=== PATIENT | female | born 1970 | race Caucasian/White ===

== ENCOUNTER → 2017-12-17 08:49 | Outpatient (CLI) | payer OTHER, SELFPAY ==
[2017-12-17 10:38] LABS: Cholesterol 178 mg/dL (200); High Density Lipoprotein 32 mg/dL; Triglycerides 371 mg/dL; Very Low Density Lipoprotein 74 mg/dL (5-40)
== END ==
PROVIDERS: Family Provider Family Medicine; PCP Family Medicine; Visit Provider Family Medicine
DX: E78.5 Hyperlipidemia, unspecified (principal)
CPT/HCPCS: 36415; 80061

== ENCOUNTER → 2018-01-11 10:29 | Outpatient (CLI) | payer OTHER, SELFPAY | PROVIDERS: Family Provider Family Medicine; PCP Family Medicine; Visit Provider Family Medicine | DX: N39.0 Urinary tract infection, site not specified (principal) | CPT/HCPCS: 87086; 87088; 87186 ==

== ENCOUNTER 2018-09-07 16:14 | Emergency (ER) | payer OTHER, SELFPAY ==
[2018-09-07 16:15] VITALS: BP 157/120; PULSE 64; RESP 16; TEMP 36.2; O2SAT 96; BMI 32.5
--- NOTE | 2018-09-07 16:51 | CT_ITS ---
STUDY: CT ABDOMEN AND PELVIS WITHOUT CONTRAST REASON FOR EXAM: Female, 48 years old. Left flank pain. RADIATION DOSAGE (If Supplied By Facility): CTDIvol = ( 15.53 ) mGy, DLP = ( 748.61 ) mGycm TECHNIQUE: Transaxial images were obtained from the dome of the diaphragm to the symphysis pubis without oral contrast, and without intravenous contrast. Sagittal and coronal images were reconstructed. Individualized dose optimization techniques were used for this CT. COMPARISON: None. FINDINGS: The visualized lung bases are unremarkable. The visualized portions of the heart are within normal limits. There is diffuse fatty infiltration of liver without focal mass. Normal gallbladder and extrahepatic biliary system. Normal spleen. Normal pancreas. Normal bilateral adrenal glands. Normal right kidney. Normal right ureter. The left kidney appears mildly enlarged. There is mild stranding of perinephric fat. There is no evidence of renal calculi. There is hydronephrosis and ureterectasis with mild stranding to suggest above the UPJ where there is a 4 mm obstructing stone (image 140, series 2). Normal visualized stomach. Normal small intestine. Normal colon. There are surgical clips in the region of the appendix consistent with a prior appendectomy. Normal abdominal aorta. Normal inferior vena cava. Normal retroperitoneum. Normal urinary bladder. Normal vaginal cuff. There are phleboliths in the pelvis without lymphadenopathy. No free air or free fluid is seen within the peritoneal cavity. Normal abdominal wall. Mild degenerative changes of the lumbar spine. CT/Abdomen/Pelvis without Cont IMPRESSION: 1. Distal left ureteral calculus with mild obstructive uropathy. 2. Fatty infiltration of liver without mass. 3. Status post hysterectomy and appendectomy. 4. Minimal degenerative changes of the lumbar spine. Carlos A Bernal M.D., was advised findings via direct telephone communication at 1831 hours EST on September 07, 2018. Electronically Signed: Jose Marx DO at 18:31 EDT Tel [phone], Service support ,
[2018-09-07] MEDS: 0.9% Normal Saline 1,000 ML 1000 ML IV (17:05)
[2018-09-07] MEDS: Ondansetron 4 MG/2 ML Vial IV (17:06)
[2018-09-07] MEDS: Morphine 4 MG/ML Syringe IV (17:06)
[2018-09-07] MEDS: Ketorolac 30 MG/ML Syringe IV (17:06)
[2018-09-07 17:22] LABS: Anion Gap 8 (5-15); BUN 17 mg/dL (7-18); BUN/Creat Ratio 15.3 RATIO (10-20); Calcium,Total 8.8 mg/dL (8.5-10.1); Chloride 108 mmol/L (98-107); Creatinine, Serum 1.11 mg/dL (0.55-1.02); EST Glomerular Filtration Rate 56 mL/min (>60); Est Glom Filt Rate - Afr Amer 67 mL/min (>60); Estimated Creatinine Clearance 46.77 ml/min; Glucose 119 mg/dL (74-106); Potassium 4.2 mmol/L (3.5-5.1); Sodium Level 142 mmol/L (136-145)
[2018-09-07 17:37] LABS: Absolute Lymphocyte Count 1.71 X10^3/ul (0.83-4.51); Basophil# 0.02 X10^3/uL; Basophil% 0.2 % (0-1); Eosinophil# 0.12 X10^3/uL; Eosinophils% 1.2 % (0-5); Hematocrit 41.9 % (37-47); Hemoglobin 13.5 g/dl (12.0-15.0); Lymphocyte # 1.71 X10^3/ul (4.0); Lymphocyte % 16.6 % (19-41); Mean Corp Hgb Conc 32.2 g/gl (32-36); Mean Corpuscular Hgb 29.7 pg (27.0-32.0); Mean Corpuscular Volume 92.1 fL (81-99); Mean Platelet Vol. 9.8 fl (6.2-12.0); Monocyte# 0.44 X10^3/uL; Monocyte% 4.3 % (0-10); Neutrophil # 7.98 X10^3/uL (2.7-7.7); Neutrophil % 77.6 % (47-70); Platelet Count 273 K/mm3 (150-450); RBC Distribution Width CV 12.9 % (11.6-14.6); RBC Distribution Width SD 42.9 fl (35.1-43.9); Red Blood Count 4.55 M/mm3 (4.2-5.4); White Blood Count 10.3 K/mm3 (4.4-11.0)
[2018-09-07 17:38] LABS: POSITIVE COUNT NO; POSITIVE DIFFERENTIAL NO; POSITIVE MORPHOLOGY NO
[2018-09-07 17:50] LABS: Pregnancy, Serum, hCG Quali. NEGATIVE Negative (0-9 Nonpreg)
[2018-09-07 18:24] LABS: Bacteria 0 SEEN /hpf (None Seen); Mucous, Urine 0 SEEN /hpf (<or=2+); White Blood Cells 0 SEEN /hpf (0-5)
[2018-09-07 18:40] LABS: Color, Urine Straw (Yellow); Glucose, Dipstick Normal (Normal); Ketone-Dipstick Negative (Negative); Leukocyte Esterase-Dipstick Negative /ul (Negative); Nitrite-Dipstick Negative (Negative); Occult Blood-Urine 250 /ul (Negative); Protein-Dipstick Negative (Negative); Urine Bilirubin Dipstick Negative (Negative); Urine Clarity Clear (Clear); Urine Urobilinogen Normal (Normal)
[2018-09-07 18:57] LABS: Red Blood Cells-Urine 50-100 SEEN /hpf (0-5); Squamous Epithelial Cells - UA 0-5 SEEN /hpf (5-10)
[2018-09-07] MEDS: HYDROcodone Bitartrate/Apap 5/325 Tablet PO (19:11)
[2018-09-07 19:13] VITALS: BP 150/86; PULSE 65; RESP 16; O2SAT 94
--- NOTE | 2018-09-07 20:14 | ED.DCSUM_ITS ---
- ER Visit Summary Date of Service: 09/07/18 Chief Complaint: Flank pain History of Present Illness: The patient is a 48 F with flank pain since around noon today. The pain is in her left flank and radiates to her lower abdomen. It is severe. Associated with an episode of diarrhea. No history of this in the past. Physical Examination: Afebrile. Hypertensive. Otherwise vitals unremarkable. Patient appears uncomfortable. Heart regular. Lungs clear. Left flank tender to palpation. Skin appears normal. Test Results: CBC normal. Chloride 108, glucose 119, creatinine 1.11. Urinalysis shows blood but no sign of infection. test negative. CT shows a left distal ureter stone, fatty liver, postop changes and chronic changes. Emergency Department Course and Treatment: Patient had Toradol, morphine, and Zofran. She also had fluids. She required subsequent treatment with [place]. Her pain was under control and she would like to go home. I advised her that this stone will likely pass on its own, but she should follow-up with urology. Call in the morning. She was given a prescription for Percocet as well as Flomax. Return for any new or worsening issues. Treatment Plan: As above Disposition: Discharged Impression: 1. Ureteral colic This note was generated with [employer] dictation software. It may contain incorrect words, spelling, and punctuation that were not noted in review of the chart prior to signing ED Disposition - Plan for ED Patient: Chief Complaint: Flank Pain Referrals: Joselito Ashraf MD [Primary Care Provider] -
--- NOTE | 2018-09-07 20:14 | ED.DEP ---
ED Disposition - Plan for ED Patient: Chief Complaint: Flank Pain Instructions: ED Stone Renal W Colic Prescriptions: Oxycodone HCl/Acetaminophen [Percocet 5/325] 1 tab PO Q6H PRN PRN 3 Days #12 tab PRN Reason: Pain Ondansetron [Zofran Odt] 4 mg PO Q8H PRN PRN #10 tab PRN Reason: Nausea Tamsulosin HCl [Flomax] 0.4 mg PO DAILY #7 cap Referrals: Caleb Shepard MD [STAFF PHYSICIAN] -
[2018-09-07 20:23] VITALS: BP 134/88; PULSE 63; RESP 16; O2SAT 94
== END 2018-09-07 20:27 | disposition home or self-care (01) ==
LOC: ED 17:21
PROVIDERS: Emergency Provider Emergency Medicine; Family Provider Family Medicine; PCP Family Medicine
DX: N20.1 Calculus of ureter (principal); K76.0 Fatty (change of) liver, not elsewhere classified; I10 Essential (primary) hypertension; F41.9 Anxiety disorder, unspecified; Z79.899 Other long term (current) drug therapy
CPT/HCPCS: 74176; 80048; 81001; 84703; 85025; 96361; 96374; 96375; 99283; J7030; A4216; J2405

== ENCOUNTER → 2019-02-25 13:27 | Outpatient (CLI) | payer BC, SELFPAY ==
[2019-01-31 11:00] VITALS: BMI 32.7
--- NOTE | 2019-02-25 13:30 | BI_ITS ---
MAMMOGRAPHY - BILATERAL SCREENING REASON FOR EXAM: Female, 48 years old. Routine annual screening examination. PERTINENT HISTORY: Aunt with breast cancer. TECHNIQUE: Digital bilateral breast trevor (3D mammographic acquisition) in the CC and MLO projections. 2-D mediolateral oblique (MLO) and craniocaudad (CC) views of both breasts were obtained. CAD: Full Field Digital Mammography with Computer Added Detection was performed. COMPARISON: Comparison is made with prior study dated November 04, 2017 and October 22, 2016. FINDINGS: Breast Composition: There are scattered areas of fibroglandular density. There are no dominant masses or suspicious calcifications. Stable bilateral axillary lymph nodes. No other significant abnormalities are identified. There has been no significant change since the prior study. BI/SCREEN MAMM (CAD) W/TREVOR BILAT IMPRESSION: Stable bilateral screening mammogram. Yearly follow-up mammogram recommended. (A) ASSESSMENT CATEGORY: BIRADS Category 2: Benign. A letter regarding these results will be sent to the patient by the facility within 30 days. Approximately 10% of breast cancers are not detected by mammography. A normal mammogram should not delay biopsy of a clinically suspicious abnormality. [id number] Electronically Signed: Corbin Moreno, at 15:02 EDT , Service support ,
== END ==
PROVIDERS: Family Provider Family Medicine; PCP Family Medicine; Referring Provider Obstetrics & Gynecology; Visit Provider Obstetrics & Gynecology
DX: Z12.31 Encounter for screening mammogram for malignant neoplasm of breast (principal)
CPT/HCPCS: 77063; 77067

== ENCOUNTER → 2020-03-22 08:02 | Outpatient (CLI) | payer BC, SELFPAY ==
[2019-01-31 11:00] VITALS: BMI 32.7
[2020-03-22 10:15] LABS: ALB/GLOB Ratio 1.1 RATIO (0.9-2.4); AST(SGOT) 28 U/L (15-37); Alanine Aminotransfer ALT/SGPT 40 U/L (13-56); Albumin, Serum 3.9 g/dL (3.2-5.0); Alkaline Phosphatase 63 U/L (45-117); Anion Gap 9 (5-15); BUN 14 mg/dL (7-18); BUN/Creat Ratio 16.1 RATIO (10-20); Chloride 104 mmol/L (98-107); Cholesterol 190 mg/dL (200); Creatinine, Serum 0.87 mg/dL (0.55-1.02); EST Glomerular Filtration Rate 73 mL/min (>60); Est Glom Filt Rate - Afr Amer 89 mL/min (>60); Globulin 3.5 g/dL (2.2-4.2); Glucose 130 mg/dL (74-106); High Density Lipoprotein 36 mg/dL; Potassium 3.9 mmol/L (3.5-5.1); Protein, Total 7.4 g/dL (6.4-8.2); Sodium Level 139 mmol/L (136-145); Thyroid Stim Hormone (TSH) 3.17 uIU/mL (0.358-3.74); Triglycerides 381 mg/dL; Very Low Density Lipoprotein 76 mg/dL (5-40)
== END ==
PROVIDERS: PCP Family Medicine; Referring Provider Family Medicine; Visit Provider Family Medicine
DX: I10 Essential (primary) hypertension (principal); E03.9 Hypothyroidism, unspecified
CPT/HCPCS: 36415; 80053; 80061; 84443

== ENCOUNTER → 2020-04-04 14:36 | Outpatient (CLI) | payer BC, SELFPAY ==
[2019-01-31 11:00] VITALS: BMI 32.7
--- NOTE | 2020-04-04 15:00 | ECHOCS_ITS ---
Reason For Study: MURMUR Procedure This was a 2D Doppler, Color Flow transthoracic echocardiogram. The study was technically difficult. Contrast injection was performed. Exam performed in department. Left Ventricle Normal size and thickness. The estimated ejection fraction is 65 %. Normal diastology for age. No regional wall motion abnormalities noted. Right Ventricle Normal size and thickness. Normal systolic function. Atria Normal left atrium. Normal right atrium. Normal atrial septum. Mitral Valve The mitral valve is structurally normal. No prolapse or stenosis seen. Tricuspid Valve Normal tricuspid valve. Trivial tricuspid valve insufficiency. Right ventricular systolic pressure estimated to be 29 mmHg. Aortic Valve Normal aortic valve. Trisinus/trileaflet aortic valve. Pulmonic Valve Normal pulmonic valve. Great Vessels Normal aortic root. Normal arch. Normal inferior vena cava. Pericardium/Pleural No pericardial effusion. Medication 22 gauge I.V. with prn adaptor inserted into right arm. Definity3.5ml given slow IV push to enhance endocardial definition. MMode/2D Measurements & Calculations LVIDd: 4.1 cm IVSd: 0.83 cm Ao root diam: 3.1 cm LVIDs: 2.7 cm LVPWd: 0.97 cm RVDd: 3.2 cm FS: 36.0 % LAV(MOD-sp4): 20.7 ml LA A4 area: 11.4 cm2 LA dimension(2D): 4.4 cm RA A4 area: 12.1 cm2 Time Measurements MV dec time: 0.27 sec Doppler Measurements & Calculations MV E max rick: 88.0 cm/sec Lat Peak E' Rick: 7.7 cm/sec Med Peak E' Rick: 7.6 cm/sec MV A max rick: 97.5 cm/sec E/E' lat: 11.5 E/E' med: 11.7 MV E/A: 0.90 Ao V2 max: 195.3 cm/sec LV V1 max: 129.4 cm/sec PA V2 max: 132.5 cm/sec Ao max P.3 mmHg LV V1 max P.7 mmHg Ao V2 mean: 126.7 cm/sec LV V1 mean P.8 mmHg Ao mean P.3 mmHg LV V1 mean: 92.3 cm/sec Ao V2 VTI: 39.0 cm LV V1 VTI: 28.2 cm TR max rick: 247.1 cm/sec TR max P.4 mmHg Interpretation Summary The estimated ejection fraction is 65 %. Normal diastology for age. Trivial tricuspid valve insufficiency. Right ventricular systolic pressure estimated to be 29 mmHg. The study was technically difficult. Contrast injection was performed. Ordering Physician: Joselito Reyes Referring Physician: Joselito Reyes Performed By: Tata Donald RDCS, RVT
== END ==
PROVIDERS: PCP Family Medicine; Referring Provider Family Medicine; Visit Provider Family Medicine
DX: R01.1 Cardiac murmur, unspecified (principal)
CPT/HCPCS: 93306; Q9957; A4216; C8929

== ENCOUNTER 2020-10-16 06:49 | Day surgery (SDC) | payer BC, SELFPAY ==
[2020-09-17 08:42] VITALS: BMI 33.5
[2020-10-16 07:27] VITALS: BP 116/72; PULSE 52; RESP 18; TEMP 36.2; O2SAT 100; BMI 32.7
[2020-10-16] MEDS: Lactated Ringers 1,000 ML 100 ML IV (07:37)
--- NOTE | 2020-10-16 08:20 | H&P.OPEN ---
History of Present Illness Date of Admission: 10/16/20 The patient is a 50 year old F who presents for screening colonoscopy. The patient has never had a colonoscopy in the past. She denies any abdominal pain or blood in her stool. She has no family history of colon cancer. Past Medical/Surgical History - Planned Operation Planned Operative Procedure/s: cscope Date of Operative Procedure: 10/16/20 Permit Signed: No S.O.S: No Is This Patient Having a Total Joint: No - Previous Hospitalizations/Surgeries HX Hospitalizations: No HX of Surgeries: csection x2. appendectomy. laparoscopy. hysterectomy Any Problems With Anesthesia: No You/Your Family Experience Fever (Hyperthermia) With Anes: No Cholinesterase deficiency: No - Cardiovascular Hx Chest Pain within Last 2 months: No Hx of Irregular Heartbeat and/or Afib: No - heart murmur Hx Heart Attack: No Hx Congestive Heart Failure: No Hx Rheumatic Fever: No Hx Hypertension: Yes - controlled with med Hx Internal Defibrillator: No Hx Pacemaker: No Hx Cardiac Catheterization: No Hx Cardiac Surgery/Stents/Etc.: No Hx Stress Test: No - echo 2020 HX Edema: No Hx Pain in Legs when Walking/Leg Cramps: No - Respiratory Chronic Cough: No HX of Shortness of Breath: No Hoarseness: No Hx Chronic Obstructive Pulmonary Disease (COPD): No Hx Asthma: No Hx Emphysema: No Hx Sleep Apnea: No Hx Oxygen Use at Home: No Hx Respiratory Tract Infection/Cold (presently): No Do You Snore Loudly (louder than talking or can be heard): Yes Do You Often Feel Tired/ Fatigued/ Sleepy Dring Daytime?: No Has Anyone Observed You Stop Breathing During Sleep?: No Result (for STOP score): Positive Hx Smoking: No Smoking Status: Never smoker - Gastrointestinal Hx Gastroesophageal Reflux: No Hx Gastrointestinal Disorders: No Hx Gastrointestinal Bleed: No Hx Ulcer: No Hx Hiatal Hernia: No Difficulty Chewing/Swallowing: No Recent Onset of Swallowing Problems: No Special diet followed at home: No Hx Unplanned Weight Loss of 20#: No HX Unplanned Weight Gain of 20#: No - Neurological Hx Seizures: No HX Syncope/Blackout Spells/Unconsciousness: No Hx CVA/Stroke: No Hx Transient Ischemic Attacks (TIA): No Hx Multiple Sclerosis: No Hx Parkinson's Disease: No Hx Head/Neck Injury: No Hx Headaches: Yes Hx Back Injury/Pain: No Recent Onset of Speech Difficulty: No Restless Legs: Yes Does patient have nerve stimulator: No Patient instructed to have device shut off: No Rep notified?: No - Blood Disorder Hx Leukemia: No Bleeding Tendencies: No Hx Deep Vein Thrombosis: No Hx High Cholesterol: No Blood Transmitted Disease: No Hx Hepatitis: No Hx Cirrhosis: No Hx Anemia: No Hx Blood Disorders: No - Reproduction : No Is Patient Lactating: No Hx Hysterectomy: Yes Hx Tubal Ligation: No Are You Post Menopause: No - Genitourinary Hx Renal Disease: No - Musculoskeletal Hx Arthritis: No Hx Rheumatoid Arthritis: No Hx Gout: No Recent Onset of an Orthopedic Problem: No - Endocrine Hx Diabetes: No Thyroid Disease: No Hx Steroid Therapy: No - Psycho/Social Hx Substance Use: No Hx Alcohol Use: No Hx Anxiety: Yes - on med Hx Depression: No Mental Illness: No Hx Dementia: No - Miscellaneous Hx Cancer: No Recent Exposure to Contagious Disease: No Active MRSA: No Hx of C-Diff: No Any Loose Teeth: No Allergies No Known Allergies Allergy (Verified 10/16/20 07:25) - Discharge Is Pt Admitted From a Long-Term, or a Senior Living: No After D/C, Where Do you Plan to Go: Return Home - Physical Exam Vitals/I&O's: Vital Signs Temp Pulse Resp BP Pulse Ox 97.2 F L 52 L 18 116/72 100 10/16/20 07:27 10/16/20 07:27 10/16/20 07:27 10/16/20 07:27 10/16/20 07:27 Oxygen Delivery Method Room Air Weight: 173 lb 3.2 oz Body Mass Index (BMI) 32.7 General: Alert, Oriented x3 Neck: Supple Lungs: Normal air movement Cardiovascular: Regular rate, Regular Rhythm Abdomen: Soft, Non Tender, Non-Distended Current Medications Lactated Ringer's () 1,000 mls @ 100 mls/hr IV .Q10H MARYBEL Last Admin: 10/16/20 07:37 Dose: 100 mls/hr Documented by: Assessment/Plan All Active Problems (Last Reviewed 09/17/20 @ 08:45 by Meseret Ramirez) Climacteric (Acute) 50-year-old female here for screening colonoscopy I explained endoscopy in detail to the patient. I explained the risks including but not limited to stroke or heart attack with anesthesia, perforation of the GI tract, bleeding, infection. I explained that any of these could necessitate further emergency surgery. The patient understands and all questions were answered sufficiently. The patient wishes to proceed with procedure. We discussed the current risks associated with COVID-19. While it is understood that there is a community spread of COVID-19, the risk of balb[place] COVID-19 while at [facility] ([facility]) is very low; however, the risk cannot be completely mitigated because of the community spread of the disease. We discussed in detail the risk of exposure to and/or potential harm posed by the COVID-19 virus with having a surgery/procedure at this time versus the risk of delaying the surgery/procedure. It is not possible to know either the risk of delaying the surgery or procedure or chance of getting an infection with perfect accuracy, but a joint decision was made to proceed at this time with the scheduled surgery/procedure as indicated on the consent form. Patient was notified that we will need to comply with any screening or testing [facility] wishes to perform or that surgery may be delayed for any positive results. Tej Denney MD Pager: [facility] [address] [place] [address] [address] [place] [address] Office: Surgery Risks - Colonoscopy Risks Include but are not Limited To: Risks include but are not limited to: Bleeding, perforation requiring further surgery, inability to complete colonoscopy requiring barium enema.
--- NOTE | 2020-10-16 08:52 | OP.COLON_ITS ---
Patient Name: Annia Pacheco Procedure Date: 10/16/2020 8:32 AM Date of : 1970 Age: 50 Procedure: Colonoscopy Indications: Screening for colorectal malignant neoplasm Providers: Tej Denney MD Referring MD: Tej Denney MD Medicines: Monitored Anesthesia Care Patient Profile: This is a 50 year old female. Refer to note in patient chart for documentation of history and physical. Last Colonoscopy: none. The patient's first colonoscopy is today. Complications: No immediate complications. Procedure: Pre-Anesthesia Assessment: - Prior to the procedure, a History and Physical was performed, and patient medications and allergies were reviewed. The patient's tolerance of previous anesthesia was also reviewed. The risks and benefits of the procedure and the sedation options and risks were discussed with the patient. All questions were answered, and informed consent was obtained. Prior Anticoagulants: The patient has taken no previous anticoagulant or antiplatelet agents. After reviewing the risks and benefits, the patient was deemed in satisfactory condition to undergo the procedure. After I obtained informed consent, the scope was passed under direct vision. Throughout the procedure, the patient's blood pressure, pulse, and oxygen saturations were monitored continuously. The Colonoscope was introduced through the anus and advanced to the cecum, identified by appendiceal orifice and ileocecal valve. The colonoscopy was performed without difficulty. The patient tolerated the procedure well. The quality of the bowel preparation was good. Scope In: 8:39:51 AM Scope Withdrawal Time 0 hours 6 minutes 5 seconds Scope Out: 8:49:19 AM Total Procedure Duration Time 0 hours 9 minutes 28 seconds Findings: The entire examined colon appeared normal on direct and retroflexion views. Impression: - The entire examined colon is normal on direct and retroflexion views. - No specimens collected. Recommendation: - Discharge patient to home. - Resume previous diet. - Continue present medications. - Repeat colonoscopy in 10 years for screening purposes. Procedure Code(s): --- Professional --- 66982, Colonoscopy, flexible; diagnostic, including collection of specimen(s) by brushing or washing, when performed (separate procedure) Diagnosis Code(s): --- Professional --- Z12.11, Encounter for screening for malignant neoplasm of colon CPT copyright 2017 [employer]. All rights reserved. The codes documented in this report are preliminary and upon revit drafter review may be revised to meet current compliance requirements. Tej Denney MD 10/16/2020 8:51:54 AM This report has been signed electronically. Number of Addenda: 0 Note Initiated On: 10/16/2020 8:32 AM
--- NOTE | 2020-10-16 08:52 | OP.CCLET_ITS ---
10/16/2020 Joselito Reyes Md Re : Colonoscopy procedure for Annia Pacheco Dear Amy This procedure was performed on Friday, October 16, 2020. My impressions and recommendations are as follows: Impressions : - The entire examined colon is normal on direct and retroflexion views. - No specimens collected. Recommendations : - Discharge patient to home. - Resume previous diet. - Continue present medications. - Repeat colonoscopy in 10 years for screening purposes. My findings are described in the full procedure note, which is enclosed. If I can be of further assistance, please feel free to contact me at Doctor phone number(s): , Work: . Sincerely, Tej Denney MD 10/16/2020 8:51:54 AM This report has been signed electronically.
[2020-10-16 08:56] VITALS: BP 106/69; BP 116/72; PULSE 61; RESP 16; TEMP 36.1; O2SAT 96
[2020-10-16 09:05] VITALS: BP 102/68; BP 110/68; BP 116/72; PULSE 57; PULSE 61; RESP 16; O2SAT 97; O2SAT 99
[2020-10-16 09:10] VITALS: BP 116/72; BP 118/72; PULSE 59; RESP 16; O2SAT 95
[2020-10-16 09:14] VITALS: BP 107/77; BP 116/72; PULSE 54; RESP 16; TEMP 36.3; O2SAT 96
[2020-10-16 09:38] VITALS: BP 116/72
== END 2020-10-16 09:39 | disposition home or self-care (01) ==
LOC: EN 06:51 → AC 06:52
PROVIDERS: PCP Family Medicine; Referring Provider Surgery; Visit Provider Surgery
PROC: 0DJD8ZZ Inspection of Lower Intestinal Tract, Via Natural or Artificial Opening Endoscopic (ICD-10-PCS; CPT 45378; principal; 2020-10-16 08:25)
DX: Z12.11 Encounter for screening for malignant neoplasm of colon (principal); Z20.828 Contact with and (suspected) exposure to other viral communicable diseases; I10 Essential (primary) hypertension; F41.9 Anxiety disorder, unspecified; R01.1 Cardiac murmur, unspecified
CPT/HCPCS: 45378; 87426; C9803; J7120; J2405

== ENCOUNTER → 2020-10-30 11:43 | Outpatient (CLI) | payer BC, SELFPAY ==
[2019-01-31 11:00] VITALS: BMI 32.7
[2020-10-16 07:27] VITALS: BMI 32.7
--- NOTE | 2020-10-30 11:52 | BI_ITS ---
MAMMOGRAPHY - BILATERAL SCREENING REASON FOR EXAM: Female, 50 years old. Routine annual screening examination. PERTINENT HISTORY: Aunt with breast cancer. TECHNIQUE: Digital bilateral breast trevor (3D mammographic acquisition) in the CC and MLO projections. 2-D mediolateral oblique (MLO) and craniocaudad (CC) views of both breasts were obtained. CAD: Full Field Digital Mammography with Computer Added Detection was performed. COMPARISON: Comparison is made with prior study dated 02/25/2019 and 11/04/2017. FINDINGS: Breast Composition: There are scattered areas of fibroglandular density. There are no dominant masses or suspicious calcifications. Stable 4.2 mm well-defined nodule in the deep central lateral portion of the left breast most likely representing a small lymph node. Stable benign appearing axillary lymph nodes. No other significant abnormalities are identified. There has been no significant change since the prior study. BI/SCREEN MAMM (CAD) W/TREVOR BILAT IMPRESSION: Stable bilateral screening mammogram. Yearly follow-up mammogram recommended. (A) ASSESSMENT CATEGORY: BIRADS Category 2: Benign. A letter regarding these results will be sent to the patient by the facility within 30 days. Approximately 10% of breast cancers are not detected by mammography. A normal mammogram should not delay biopsy of a clinically suspicious abnormality. [id number] Electronically Signed: Corbin Moreno, at 13:14 EST , Service support ,
== END ==
PROVIDERS: PCP Family Medicine; Referring Provider Obstetrics & Gynecology; Visit Provider Obstetrics & Gynecology
DX: Z12.31 Encounter for screening mammogram for malignant neoplasm of breast (principal)
CPT/HCPCS: 77063; 77067

== ENCOUNTER → 2020-11-23 07:46 | Outpatient (CLI) | payer BC, SELFPAY ==
[2020-11-23 09:54] LABS: Hematocrit 40.5 % (37-47); Hemoglobin 13.3 g/dL (12.0-15.0); Mean Corp Hgb Conc 32.8 g/dL (32-36); Mean Corpuscular Hgb 29.4 pg (27.0-32.0); Mean Corpuscular Volume 89.4 fL (81-99); Platelet Count 243 K/mm3 (150-450); RBC Distribution Width CV 12.3 % (11.6-14.6); RBC Distribution Width SD 40.1 fl (35.1-43.9); Red Blood Count 4.53 M/mm3 (4.2-5.4); White Blood Count 7.3 K/mm3 (4.4-11.0)
[2020-11-23 10:19] LABS: Hemoglobin A1c 5.8 % (3.8-5.6)
[2020-11-23 10:23] LABS: ALB/GLOB Ratio 1.1 RATIO (0.9-2.4); AST(SGOT) 48 U/L (15-37); Alanine Aminotransfer ALT/SGPT 50 U/L (13-56); Albumin, Serum 3.7 g/dL (3.2-5.0); Alkaline Phosphatase 72 U/L (45-117); Anion Gap 7 (5-15); BUN 14 mg/dL (7-18); BUN/Creat Ratio 18.2 RATIO (10-20); Calcium,Total 8.6 mg/dL (8.5-10.1); Chloride 106 mmol/L (98-107); Cholesterol 184 mg/dL (200); Creatinine, Serum 0.77 mg/dL (0.55-1.02); EST Glomerular Filtration Rate 84 mL/min (>60); Est Glom Filt Rate - Afr Amer 102 mL/min (>60); Globulin 3.3 g/dL (2.2-4.2); Glucose 104 mg/dL (74-106); High Density Lipoprotein 34 mg/dL; Potassium 3.6 mmol/L (3.5-5.1); Sodium Level 140 mmol/L (136-145); Triglycerides 326 mg/dL; Very Low Density Lipoprotein 65 mg/dL (5-40)
== END ==
PROVIDERS: PCP Family Medicine; Referring Provider Family Medicine; Visit Provider Family Medicine
DX: Z00.00 Encounter for general adult medical examination without abnormal findings (principal); L29.9 Pruritus, unspecified; R73.01 Impaired fasting glucose
CPT/HCPCS: 36415; 80053; 80061; 83036; 84443; 85027

== ENCOUNTER → 2021-05-30 07:42 | Outpatient (CLI) | payer BC, SELFPAY ==
[2021-05-30 10:41] LABS: Cholesterol 193 mg/dL (200); High Density Lipoprotein 37 mg/dL; Triglycerides 314 mg/dL; Very Low Density Lipoprotein 63 mg/dL (5-40)
[2021-05-30 10:46] LABS: Hemoglobin A1c 5.6 % (3.8-5.6)
== END ==
PROVIDERS: PCP Family Medicine; Referring Provider Family Medicine; Visit Provider Family Medicine
DX: E78.5 Hyperlipidemia, unspecified (principal); R73.01 Impaired fasting glucose
CPT/HCPCS: 36415; 80061; 83036

== ENCOUNTER 2021-12-04 12:58 | Outpatient (CLI) | payer BC, SELFPAY ==
--- NOTE | 2021-12-04 13:01 | BI_ITS ---
MAMMOGRAPHY - BILATERAL SCREENING REASON FOR EXAM: Female, 51 years old. Routine annual screening examination. PERTINENT HISTORY: Aunt with breast cancer. TECHNIQUE: Digital bilateral breast trevor (3D mammographic acquisition) in the CC and MLO projections. 2-D mediolateral oblique (MLO) and craniocaudad (CC) views of both breasts were obtained. CAD: Full Field Digital Mammography with Computer Added Detection was performed. COMPARISON: Comparison is made with prior examination dated 10/30/2020 and 02/25/2019. FINDINGS: Breast Composition: There are scattered areas of fibroglandular density. There are no dominant masses or suspicious calcifications. Stable 4.2 mm well-defined nodule in the deep central lateral aspect of the left breast. This most likely represents a small lymph node. Stable benign appearing bilateral axillary lymph nodes. No other significant abnormalities are identified. There has been no significant change since the prior study. BI/SCRN MAMM (CAD)W/TREVOR BILAT IMPRESSION: Stable bilateral screening mammogram. Yearly follow-up mammogram recommended. (A) ASSESSMENT CATEGORY: BIRADS Category 2: Benign. A letter regarding these results will be sent to the patient by the facility within 30 days. Approximately 10% of breast cancers are not detected by mammography. A normal mammogram should not delay biopsy of a clinically suspicious abnormality. [id number] Electronically Signed: Corbin Moreno MD at 13:37 EST ,
== END 2021-12-04 23:59 | disposition short-term general hospital (02) ==
LOC: OPBI 12:59
PROVIDERS: Visit Provider Obstetrics & Gynecology
DX: Z12.31 Encounter for screening mammogram for malignant neoplasm of breast (principal); Z80.3 Family history of malignant neoplasm of breast
CPT/HCPCS: 77063; 77067

== ENCOUNTER → 2022-05-16 | Outpatient (CLI) | payer BC, SELFPAY ==
[2022-05-16 10:31] LABS: Hemoglobin A1c 6.1 % (3.8-5.6)
[2022-05-16 10:39] LABS: AST(SGOT) 30 U/L (15-37); Alanine Aminotransfer ALT/SGPT 37 U/L (13-56); Albumin, Serum 3.6 g/dL (3.2-5.0); Alkaline Phosphatase 58 U/L (45-117); Anion Gap 7 (5-15); BUN 13 mg/dL (7-18); BUN/Creat Ratio 16.4 RATIO (10-20); Calcium,Total 8.7 mg/dL (8.5-10.1); Chloride 106 mmol/L (98-107); Cholesterol 177 mg/dL (200); Creatinine, Serum 0.79 mg/dL (0.55-1.02); EST Glomerular Filtration Rate 81 mL/min (>60); Est Glom Filt Rate - Afr Amer 98 mL/min (>60); Globulin 3.7 g/dL (2.2-4.2); Glucose 129 mg/dL (74-106); High Density Lipoprotein 37 mg/dL; Potassium 3.7 mmol/L (3.5-5.1); Protein, Total 7.3 g/dL (6.4-8.2); Sodium Level 139 mmol/L (136-145); Thyroid Stim Hormone (TSH) 3.98 uIU/mL (0.358-3.74); Triglycerides 369 mg/dL; Very Low Density Lipoprotein 74 mg/dL (5-40)
== END | disposition home or self-care (01) ==
LOC: MTLAB 07:59
PROVIDERS: PCP Family Medicine; Referring Provider Family Medicine; Visit Provider Family Medicine
DX: I10 Essential (primary) hypertension (principal); E78.5 Hyperlipidemia, unspecified; E03.9 Hypothyroidism, unspecified; R73.01 Impaired fasting glucose
CPT/HCPCS: 36415; 80053; 80061; 83036; 84443

== ENCOUNTER → 2022-11-24 | Outpatient (CLI) | payer BC, SELFPAY ==
[2022-11-24 18:15] LABS: Thyroid Stim Hormone (TSH) 2.16 uIU/mL (0.358-3.74)
[2022-11-24 18:27] LABS: Hemoglobin A1c 6.1 % (3.8-5.6)
== END | disposition home or self-care (01) ==
LOC: MTLAB 15:48
PROVIDERS: PCP Family Medicine; Referring Provider Family Medicine; Visit Provider Family Medicine
DX: R73.01 Impaired fasting glucose (principal); E03.9 Hypothyroidism, unspecified
CPT/HCPCS: 36415; 83036; 84443

== ENCOUNTER → 2022-12-08 | Outpatient (CLI) | payer BC, SELFPAY ==
--- NOTE | 2022-12-08 07:59 | BI_ITS ---
MAMMOGRAPHY - BILATERAL SCREENING REASON FOR EXAM: Female, 52 years old. Routine annual screening examination. PERTINENT HISTORY: Aunt with breast cancer. TECHNIQUE: Digital bilateral breast trevor (3D mammographic acquisition) in the CC and MLO projections. 2-D mediolateral oblique (MLO) and craniocaudad (CC) views of both breasts were obtained. CAD: Full Field Digital Mammography with Computer Added Detection was performed. COMPARISON: Comparison is made with prior study dated 12/04/2001. FINDINGS: Breast Composition: There are scattered areas of fibroglandular density. There are no dominant masses or suspicious calcifications. Stable 4 mm well-defined nodule in the deep central outer left breast. Stable benign-appearing bilateral axillary lymph nodes. No other significant abnormalities are identified. There has been no significant change since the prior study. BI/SCRN MAMM (CAD)W/TREVOR BILAT IMPRESSION: Stable bilateral screening mammogram. Yearly follow-up mammogram recommended. (A) ASSESSMENT CATEGORY: BIRADS Category 2: Benign. A letter regarding these results will be sent to the patient by the facility within 30 days. Approximately 10% of breast cancers are not detected by mammography. A normal mammogram should not delay biopsy of a clinically suspicious abnormality. [id number] Electronically Signed: Corbin Moreno MD at 9:16 EST ,
== END | disposition home or self-care (01) ==
LOC: OPBI 07:58
PROVIDERS: PCP Family Medicine; Referring Provider Obstetrics & Gynecology; Visit Provider Obstetrics & Gynecology
DX: Z12.31 Encounter for screening mammogram for malignant neoplasm of breast (principal); Z80.3 Family history of malignant neoplasm of breast
CPT/HCPCS: 77063; 77067

== ENCOUNTER → 2023-11-23 | Outpatient (CLI) | payer BC, SELFPAY ==
--- OUTSIDE RECORDS SUMMARY | 2023-11-23 14:51 | XMS RPT_ITS | CCD ---
Author Name Unknown Address [address] [place] [address] Organization [facility] Care Team Providers Care Shoe Stitcher Name Role Phone Nghia Gould MD Primary Care Provider Jessica Hill DO Primary Care Provider JESSICA HILL Primary Care Unavailable JESSICA HILL Primary Care Unavailable NGHIA GOULD Primary Care Unavailable Medications Current Medications Medication Drug Class(es) Dates Sig (Normalized) Sig (Original) amoxicillin 500 mg oral tablet (3 sources) Penicillin-class Antibacterial Start: 02-19-2023 End: 03-01-2023 take 1 tablet by mouth twice daily Amoxicillin 500 mg tablet Indications: Streptococcal pharyngitis Take 1 tablet by mouth twice daily for 10 days. 20 tablet 0 02/19/2023 03/01/2023 Active Completed/Discontinued Medications Medication Drug Class(es) Dates Sig (Normalized) Sig (Original) benzonatate 100 mg oral capsule (3 sources) Non-narcotic Antitussive Start: 01-09-2023 End: 02-19-2023 take 1 capsule by mouth every eight hours as needed for cough and cough benzonatate (TESSALON PERLES) 100 mg capsule Indications: Cough, unspecified type Take 1 capsule by mouth three times daily as needed. 14 capsule 0 02/19/2023 Active Problems Problem Classification Problem Date Documented Date Episodic/Chronic Menopausal disorders (3 sources) Menopausal symptom; Translations: [Menopausal and female climacteric states] Onset: 02-26-2009 02-26-2009 Chronic Other lower respiratory disease (1 source) Cough; Translations: [Cough, unspecified type] Episodic Other upper respiratory infections (4 sources) Streptococcal sore throat; Translations: [Streptococcal pharyngitis] Episodic Otitis media and related conditions (1 source) Acute right otitis media; Translations: [Otitis media, unspecified, right ear] Episodic Results Test Name Value Interpretation Reference Range Facil ity Vital Signs Date Time Vital Sign Value Performing Clinician Denisha tsai 02-19-2023 14:46-0400 Body temperature 99.39 [degF] Ministerio Vasques MD Work Phone: [facility] 02-19-2023 14:46-0400 Body weight 82.28 kg Ministerio Vasques MD Work Phone: [facility] 02-19-2023 14:46-0400 Diastolic blood pressure 86 mm[Hg] Ministerio Vasques MD Work Phone: [facility] 02-19-2023 14:46-0400 Heart rate 70 /min Ministerio Vasques MD Work Phone: [facility] 02-19-2023 14:46-0400 Respiratory rate 18 /min Ministerio Vasques MD Work Phone: [facility] 02-19-2023 14:46-0400 SaO2% (BldA) [Mass fraction] 99 % Ministerio Vasques MD Work Phone: [facility] 02-19-2023 14:46-0400 Systolic blood pressure 138 mm[Hg] Ministerio Vasques MD Work Phone: [facility] 01-09-2023 09:12-0500 Body temperature 98.29 [degF] Krislyn Aberegg PA Work Phone: [facility] 01-09-2023 09:12-0500 Body weight 81.74 kg Krislyn Aberegg PA Work Phone: [facility] 01-09-2023 09:12-0500 Diastolic blood pressure 94 mm[Hg] Krislyn Aberegg PA Work Phone: [facility] 01-09-2023 09:12-0500 Heart rate 67 /min Krislyn Aberegg PA Work Phone: [facility] 01-09-2023 09:12-0500 Respiratory rate 20 /min Krislyn Aberegg PA Work Phone: [facility] 01-09-2023 09:12-0500 SaO2% (BldA) [Mass fraction] 97 % Krislyn Aberegg PA Work Phone: [facility] 01-09-2023 09:12-0500 Systolic blood pressure 150 mm[Hg] Krislyn Aberegg PA Work Phone: [facility] 10-28-2022 13:42-0500 Body temperature 97.9 [degF] Queenie Alejandra [employer] Work Phone: [facility] 10-28-2022 13:42-0500 Body weight 82.28 kg Queenie Alejandra [employer] Work Phone: [facility] 10-28-2022 13:42-0500 Diastolic blood pressure 84 mm[Hg] Queenie Alejandra [employer] Work Phone: [facility] 10-28-2022 13:42-0500 Heart rate 56 /min Queenie Alejandra [employer] Work Phone: [facility] 10-28-2022 13:42-0500 Respiratory rate 16 /min Queenie Alejandra [employer] Work Phone: [facility] 10-28-2022 13:42-0500 SaO2% (BldA) [Mass fraction] 98 % Queenie Alejandra [employer] Work Phone: [facility] 10-28-2022 13:42-0500 Systolic blood pressure 152 mm[Hg] Queenie Alejadnra [employer] Work Phone: [facility] Encounters Encounter Date Encounter Type Care Provider Facility Start: 02-19-2023 End: 02-19-2023 ambulatory JESSICA HILL Facility:[facility] Start: 02-19-2023 End: 02-19-2023 Patient encounter procedure Ministerio Vasques MD Work Phone: [facility] Care Procedures Date Procedure Procedure Detail Performing Clinician Start: 02-19-2023 STREP A MOLECULAR (POC) Conrad Frederick [employer] Work Phone: Start: 10-28-2022 STREP A MOLECULAR (POC) Sofie Mcgrath [employer]OHNNA Work Phone: Start: 10-22-2016 Mammography Queenie Calvert ggs [employer] Work Phone: Plan of Treatment Date Care Activity Detail Author Start: 07-10-2023 Influenza vaccination INFLUENZA (Sea son Ended) [facility] Start: 11-09-2022 DEPRESSION ASSESSMENT DEPRESSION ASS [facility] Start: 07-10-2022 Influenza vaccination INFLUENZA (#1) [facility] Start: 11-09-2021 DEPRESSION ASSESSMENT DEPRESSION ASS [facility] Start: 2020 SHINGRIX VACCINE (1 of 2) SHINGRIX V ACCINE (1 of 2) [facility] Start: 10-22-2017 Mammography MAMMOGRAM [facility] Start: 2015 COLOGUARD (FIT-DNA) COLOGUARD (FIT-D NA) [facility] Start: 2015 Colonoscopy COLONOSCOPY [facility] Start: 2015 COLORECTAL CANCER SCREENING COLORECTAL CANCER SCREENING [facility] Start: [address] COLONOGRAPHY [facility] Start: 2015 DIABETES SCREEN DIABETES SCREEN [facility] Start: 2015 FECAL OCCULT BLOOD FECAL OCCULT BLOO D [facility] Start: 2015 LIPID SCREEN LIPID SCREEN [facility] Start: 2015 SIGMOIDOSCOPY SIGMOIDOSCOPY [facility] Start: 1989 Urine microalbumin profile DTAP,TDAP ,TD (1 - Tdap) [facility] Start: 1988 HEPATITIS C SCREENING HEPATITIS C SC REENING [facility] Start: 1988 HIV SCREENING HIV SCREENING [facility] Start: 1970 COVID-19 VACCINE (#1) COVID-19 VACCI NE (#1) [facility] Start: 1970 HEPATITIS B (1 of 3 - 3-dose series) HEPATITIS B (1 of 3 - 3-dose series) [facility] Payers Date Payer Category Payer Unknown [employer] PPO OOS [id number] 2018-Present [phone] [address] [place] [address] PPO [id number] 2018 Unknown [id number] Social History Date Type Detail Facility Start: 10-28-2022 Tobacco smoking stat [facility] Never smoked tobacco [facility] Start: 10-28-2022 Tobacco use and exposure Smoke less tobacco non-user [facility] Start: 10-28-2022 End: 02-19-2023 Alcohol intake Current non-drinker of alcohol (finding) [facility] Start: 1970 Sex Assigned At Not on file C [facility] Clinical Notes 05-06-2010 to 02-19-2023 Ministerio Vasques MD - 02/19/2023 2:52 PM PAYTON Oliva - 01/09/2023 9:18 AM Sydney Alejandra APRN.CNP - 10/28/2022 1:51 PM EST Note Date & Type Note Facility 02-19-2023 Note HNO ID: [id number] Author: Ministerio Vasques MD Service: ? Author Type: Physician Type: Progress Notes Filed: 02/19/2023 3:05 PM Note Text: Patient presents with: Pain, Throat: Pt reported throat pain, swelling, ear pain, x2 days. HPI: Feeling sick for 5 days. Positive symptoms: Sore throat, Earache, headache, evening Cough, sweats, some diarrhea, Negative symptoms: Fever, Vomiting, OTC: ibuprofen MEDICATIONS: Current Outpatient Medications Medication Sig escitalopram oxalate (LEXAPRO) 20 mg tablet Take 20 mg by mouth once daily. hydrOXYzine HCl (ATARAX) 25 mg tablet metoprolol tartrate, short acting, (LOPRESSOR) 50 mg tablet estradiol (VIVELLE-DOT) 0.1 mg/24 hr Apply 1 Patch as directed twice a week. ONE PER SKIN TWICE A WEEK paroxetine 20 mg tablet Take 20 mg by mouth once daily. MULTIVITAMIN TAB Take one(1) tablet daily. benzonatate (TESSALON PERLES) 100 mg capsule Take 1 capsule by mouth three times daily as needed. (Patient not taking: Reported on 02/19/2023) calcium carbonate(CALTRATE 600 600 MG (1,500 MG) TAB) Take one(1) tablet twice daily. No current facility-administered medications for this visit. ALLERGIES: ALLERGIES No Known Allergies VITALS: BP 138/86 Pulse 70 Temp 37.4 ?C (99.4 ?F) (Tympanic) Resp 18 Wt 82.3 kg (181 lb 6.4 oz) SpO2 99% BMI 34.69 kg/m? PHYSICAL EXAM: GEN: mildly ill appearing, pleasant, alert HEENT: PERRL, EOMI, conjunctiva clear Ears: canals clear. TMs without erythema or effusion. May be trace bulge right TM. Sinuses: non-tender frontal sinus, non-tender maxillary sinuses Throat: moist mucous membranes, mild erythema, no exudate Neck: supple, no thyromegaly, no lymphadenopathy HEART: regular rate and rhythm, no murmurs LUNGS: clear to auscultation, no wheezes or crackles, no increased WOB ASSESSMENT/PLAN: 1. Streptococcal pharyngitis - ICD9: 034.0, ICD10: J02.0 (primary diagnosis) 2. Sore throat - ICD9: 462, ICD10: J02.9 - Alere Strep Test positive - Discussed supportive care treatment with as needed analgesia. - Contagious disease precautions discussed- including considered contagious until on antibiotics for 24 hours - STREP A MOLECULAR (POC) - AMOXICILLIN 500 MG TABLET 3. Cough, unspecified type - ICD9: 786.2, ICD10: R05.9 Requests refill of - BENZONATATE 100 MG CAPSULE Ministerio Vasques MD [facility] 02-19-2023 History of Present illness Narrative Patient presents with: Pain, Throat: Pt reported throat pain, swelling, ear pain, x2 days. HPI: Feeling sick for 5 days. Positive symptoms: Sore throat, Earache, headache, evening Cough, sweats, some diarrhea, Negative symptoms: Fever, Vomiting, OTC: ibuprofen MEDICATIONS: Current Outpatient Medications Medication Sig escitalopram oxalate (LEXAPRO) 20 mg tablet Take 20 mg by mouth once daily. hydrOXYzine HCl (ATARAX) 25 mg tablet metoprolol tartrate, short acting, (LOPRESSOR) 50 mg tablet estradiol (VIVELLE-DOT) 0.1 mg/24 hr Apply 1 Patch as directed twice a week. ONE PER SKIN TWICE A WEEK paroxetine 20 mg tablet Take 20 mg by mouth once daily. MULTIVITAMIN TAB Take one(1) tablet daily. benzonatate (TESSALON PERLES) 100 mg capsule Take 1 capsule by mouth three times daily as needed. (Patient not taking: Reported on 02/19/2023) calcium carbonate(CALTRATE 600 600 MG (1,500 MG) TAB) Take one(1) tablet twice daily. No current facility-administered medications for this visit. ALLERGIES: ALLERGIES No Known Allergies VITALS: BP 138/86 Pulse 70 Temp 37.4 C (99.4 F) (Tympanic) Resp 18 Wt 82.3 kg (181 lb 6.4 oz) SpO2 99% BMI 34.69 kg/m PHYSICAL EXAM: GEN: mildly ill appearing, pleasant, alert HEENT: PERRL, EOMI, conjunctiva clear Ears: canals clear. TMs without erythema or effusion. May be trace bulge right TM. Sinuses: non-tender frontal sinus, non-tender maxillary sinuses Throat: moist mucous membranes, mild erythema, no exudate Neck: supple, no thyromegaly, no lymphadenopathy HEART: regular rate and rhythm, no murmurs LUNGS: clear to auscultation, no wheezes or crackles, no increased WOB ASSESSMENT/PLAN: 1. Streptococcal pharyngitis - ICD9: 034.0, ICD10: J02.0 (primary diagnosis) 2. Sore throat - ICD9: 462, ICD10: J02.9 - Alere Strep Test positive - Discussed supportive care treatment with as needed analgesia. - Contagious disease precautions discussed- including considered contagious until on antibiotics for 24 hours - STREP A MOLECULAR (POC) - AMOXICILLIN 500 MG TABLET 3. Cough, unspecified type - ICD9: 786.2, ICD10: R05.9 Requests refill of - BENZONATATE 100 MG CAPSULE Ministerio Vasques MD documented in this encounter [facility] 01-09-2023 Note HNO ID: [id number] Author: PAYTON Lombardo Service: ? Author Type: Physician Seamstress Fitter Type: Progress Notes Filed: 01/09/2023 9:20 AM Note Text: This note was created using MetricStreamriter. Subjective Annia Pacheco is a 52 year old female. HPI 52-year-old female presents for sinus congestion, headache, cough, sore throat. Patient states that her symptoms started about 3 days ago. She had a sore throat and postnasal drainage. She states sore throat is now improved, but she has a lot of sinus congestion and a cough. She states yesterday she had a fever. No sick contacts that she is aware of. No vomiting or diarrhea. No chest pain or shortness of breath. PAST MEDICAL HISTORY Diagnosis Date Endometriosis, site unspecified Endometriosis/resolved Papanicolaou smear of cervix with low grade squamous intraepithelial lesion (LGSIL) 1988 Colpo- cervicitis and metaplasia only and paps since [place] PMH - PAST MEDICAL HISTORY OF PID PMH - PAST MEDICAL HISTORY OF anxiety disorder Symptomatic menopausal or female climacteric states PAST SURGICAL HISTORY Procedure Laterality Date APPENDECTOMY DELIVERY ONLY , low cervical X2 COLPOSCOPY CERVIX UPPER/ADJACENT VAGINA 1988; 1989 Colposcopy and Bx showed cervcictis only LAPS ABD PRTMANDOMENTUM DX W/WO SPEC BR/WA SPX Laparoscopy/LYSIS OF ADHESIONS TOTAL ABDOMINAL HYSTERECT W/WO RMVL TUBE OVARY 08/2005 Hysterectomy, RAYMOND/bso ALLERGIES Patient has no known allergies. MEDICATIONS escitalopram oxalate (LEXAPRO) 20 mg tablet Take 20 mg by mouth once daily. hydrOXYzine HCl (ATARAX) 25 mg tablet metoprolol tartrate, short acting, (LOPRESSOR) 50 mg tablet estradiol (VIVELLE-DOT) 0.1 mg/24 hr Apply 1 Patch as directed twice a week. ONE PER SKIN TWICE A WEEK paroxetine 20 mg tablet Take 20 mg by mouth once daily. MULTIVITAMIN TAB Take one(1) tablet daily. calcium carbonate(CALTRATE 600 600 MG (1,500 MG) TAB) Take one(1) tablet twice daily. FAMILY HISTORY Problem Relation Age of Onset Cancer Mother SKIN Stroke Father Coronary Artery Disease Father Diabetes Father Diabetes Paternal Grandmother Diabetes Maternal Grandfather SKIN CANCER Heart Paternal Grandfather STROKE Breast Cancer Paternal Aunt Cancer Paternal Aunt Uterine Cancer Social History Tobacco Use Smoking status: Never Smokeless tobacco: Never Substance Use Topics Alcohol use: No Drug use: No Review of Systems Constitutional: Positive for chills and fever. HENT: Positive for congestion, ear pain, sinus pressure and sore throat. Respiratory: Positive for cough. Negative for shortness of breath. Cardiovascular: Negative for chest pain. Gastrointestinal: Negative for diarrhea and vomiting. Objective BP 150/94 Pulse 67 Temp 36.8 ?C (98.3 ?F) Resp 20 Wt 81.7 kg (180 lb 3.2 oz) SpO2 97% BMI 34.47 kg/m? Physical Exam Vitals and nursing note reviewed. Constitutional: General: She is not in acute distress. Appearance: Normal appearance. She is not toxic-appearing. HENT: Right Ear: Ear canal normal. Tympanic membrane is erythematous and bulging. Left Ear: Tympanic membrane and ear canal normal. Nose: Nose normal. Mouth/Throat: Mouth: Mucous membranes are moist. Pharynx: No oropharyngeal exudate or posterior oropharyngeal erythema. Tonsils: No tonsillar exudate. 0 on the left. Eyes: Conjunctiva/sclera: Conjunctivae normal. Cardiovascular: Rate and Rhythm: Normal rate and regular rhythm. Pulmonary: Effort: Pulmonary effort is normal. Breath sounds: Normal breath sounds. Neurological: Mental Status: She is alert. Assessment and Plan ASSESSMENT/PLAN: 1. Acute otitis media, right - ICD9: 382.9, ICD10: H66.91 (primary diagnosis) - Will begin treatment with Amoxicillin for 7 days - Supportive care with plenty of fluids, rest, and analgesia prn. 2. URI, acute - ICD9: 465.9, ICD10: J06.9 - Discussed viral etiology and rationale for treatment. - Symptomatic treatment with prn analgesia - Supportive care with fluids and rest -Declines COVID/flu swab Diagnosis and treatment plan were discussed and questions were answered to the patient's satisfaction. Pt acknowledged understanding of concepts and follow up plan. Specific signs and symptoms that would indicate the need for higher level of care were discussed in detail warranting prompt ER evaluation. PAYTON Lombardo [facility] 01-09-2023 History of Present illness Narrative This note was created using MetricStreamriter. Subjective Annia Pacheco is a 52 year old female. HPI 52-year-old female presents for sinus congestion, headache, cough, sore throat. Patient states that her symptoms started about 3 days ago. She had a sore throat and postnasal drainage. She states sore throat is now improved, but she has a lot of sinus congestion and a cough. She states yesterday she had a fever. No sick contacts that she is aware of. No vomiting or diarrhea. No chest pain or shortness of breath. PAST MEDICAL HISTORY Diagnosis Date Endometriosis, site unspecified Endometriosis/resolved Papanicolaou smear of cervix with low grade squamous intraepithelial lesion (LGSIL) 1988 Colpo- cervicitis and metaplasia only and paps since [place] PMH - PAST MEDICAL HISTORY OF PID PMH - PAST MEDICAL HISTORY OF anxiety disorder Symptomatic menopausal or female climacteric states PAST SURGICAL HISTORY Procedure Laterality Date APPENDECTOMY DELIVERY ONLY , low cervical X2 COLPOSCOPY CERVIX UPPER/ADJACENT VAGINA 1988; 1989 Colposcopy and Bx showed cervcictis only LAPS ABD PRTM&OMENTUM DX W/WO SPEC BR/WA SPX Laparoscopy/LYSIS OF ADHESIONS TOTAL ABDOMINAL HYSTERECT W/WO RMVL TUBE OVARY 08/2005 Hysterectomy, RAYMOND/bso ALLERGIES Patient has no known allergies. MEDICATIONS escitalopram oxalate (LEXAPRO) 20 mg tablet Take 20 mg by mouth once daily. hydrOXYzine HCl (ATARAX) 25 mg tablet metoprolol tartrate, short acting, (LOPRESSOR) 50 mg tablet estradiol (VIVELLE-DOT) 0.1 mg/24 hr Apply 1 Patch as directed twice a week. ONE PER SKIN TWICE A WEEK paroxetine 20 mg tablet Take 20 mg by mouth once daily. MULTIVITAMIN TAB Take one(1) tablet daily. calcium carbonate(CALTRATE 600 600 MG (1,500 MG) TAB) Take one(1) tablet twice daily. FAMILY HISTORY Problem Relation Age of Onset Cancer Mother SKIN Stroke Father Coronary Artery Disease Father Diabetes Father Diabetes Paternal Grandmother Diabetes Maternal Grandfather SKIN CANCER Heart Paternal Grandfather STROKE Breast Cancer Paternal Aunt Cancer Paternal Aunt Uterine Cancer Social History Tobacco Use Smoking status: Never Smokeless tobacco: Never Substance Use Topics Alcohol use: No Drug use: No Review of Systems Constitutional: Positive for chills and fever. HENT: Positive for congestion, ear pain, sinus pressure and sore throat. Respiratory: Positive for cough. Negative for shortness of breath. Cardiovascular: Negative for chest pain. Gastrointestinal: Negative for diarrhea and vomiting. Objective BP 150/94 Pulse 67 Temp 36.8 C (98.3 F) Resp 20 Wt 81.7 kg (180 lb 3.2 oz) SpO2 97% BMI 34.47 kg/m Physical Exam Vitals and nursing note reviewed. Constitutional: General: She is not in acute distress. Appearance: Normal appearance. She is not toxic-appearing. HENT: Right Ear: Ear canal normal. Tympanic membrane is erythematous and bulging. Left Ear: Tympanic membrane and ear canal normal. Nose: Nose normal. Mouth/Throat: Mouth: Mucous membranes are moist. Pharynx: No oropharyngeal exudate or posterior oropharyngeal erythema. Tonsils: No tonsillar exudate. 0 on the left. Eyes: Conjunctiva/sclera: Conjunctivae normal. Cardiovascular: Rate and Rhythm: Normal rate and regular rhythm. Pulmonary: Effort: Pulmonary effort is normal. Breath sounds: Normal breath sounds. Neurological: Mental Status: She is alert. Assessment and Plan ASSESSMENT/PLAN: 1. Acute otitis media, right - ICD9: 382.9, ICD10: H66.91 (primary diagnosis) - Will begin treatment with Amoxicillin for 7 days - Supportive care with plenty of fluids, rest, and analgesia prn. 2. URI, acute - ICD9: 465.9, ICD10: J06.9 - Discussed viral etiology and rationale for treatment. - Symptomatic treatment with prn analgesia - Supportive care with fluids and rest -Declines COVID/flu swab Diagnosis and treatment plan were discussed and questions were answered to the patient's satisfaction. Pt acknowledged understanding of concepts and follow up plan. Specific signs and symptoms that would indicate the need for higher level of care were discussed in detail warranting prompt ER evaluation. PAYTON Lombardo documented in this encounter [facility] 10-28-2022 Note HNO ID: [id number] Author: Queenie Alejandra APRN.[employer] Service: ? Author Type: Nurse Practitioner Type: Progress Notes Filed: 10/28/2022 2:04 PM Note Text: This note was created using NoteWriter. Subjective Annia Pacheco is a 52 year old female. 52 year old female With PMH HTN presents for illness. Think I have strep Acute onset Thursday night +ear congestion +sore throat Mild cough Denies SOB or dyspnea. Denies abdominal pain Denies N/V/D Denies skin rash or lesions. Daughter recently tested positive for strep. The history is provided by the patient. No language instructor was used. Sore Throat This is a new problem. The current episode started in the past 7 days. The problem has been gradually worsening. Neither side of throat is experiencing more pain than the other. There has been no fever. The pain is at a severity of 5/10. The pain is moderate. Associated symptoms include coughing, ear pain, headaches and swollen glands. Pertinent negatives include no abdominal pain, congestion, diarrhea, drooling, ear discharge, hoarse voice, plugged ear sensation, neck pain, shortness of breath, stridor, trouble swallowing or vomiting. She has had exposure to strep. She has tried nothing for the symptoms. The treatment provided no relief. PAST MEDICAL HISTORY Diagnosis Date Endometriosis, site unspecified Endometriosis/resolved Papanicolaou smear of cervix with low grade squamous intraepithelial lesion (LGSIL) 1988 Colpo- cervicitis and metaplasia only and paps since [place] PMH - PAST MEDICAL HISTORY OF PID PMH - PAST MEDICAL HISTORY OF anxiety disorder Symptomatic menopausal or female climacteric states PAST SURGICAL HISTORY Procedure Laterality Date APPENDECTOMY DELIVERY ONLY , low cervical X2 COLPOSCOPY CERVIX UPPER/ADJACENT VAGINA 1988; 1989 Colposcopy and Bx showed cervcictis only LAPS ABD PRTMANDOMENTUM DX W/WO SPEC BR/WA SPX Laparoscopy/LYSIS OF ADHESIONS TOTAL ABDOMINAL HYSTERECT W/WO RMVL TUBE OVARY 08/2005 Hysterectomy, RAYMOND/bso ALLERGIES Patient has no known allergies. MEDICATIONS escitalopram oxalate (LEXAPRO) 20 mg tablet Take 20 mg by mouth once daily. metoprolol tartrate, short acting, (LOPRESSOR) 50 mg tablet estradiol (VIVELLE-DOT) 0.1 mg/24 hr Apply 1 Patch as directed twice a week. ONE PER SKIN TWICE A WEEK paroxetine 20 mg tablet Take 20 mg by mouth once daily. MULTIVITAMIN TAB Take one(1) tablet daily. hydrOXYzine HCl (ATARAX) 25 mg tablet amoxicillin (POLYMOX, AMOXIL) 500 mg capsule Take 1 capsule by mouth twice daily for 10 days. calcium carbonate(CALTRATE 600 600 MG (1,500 MG) TAB) Take one(1) tablet twice daily. FAMILY HISTORY Problem Relation Age of Onset Cancer Mother SKIN Stroke Father Coronary Artery Disease Father Diabetes Father Diabetes Paternal Grandmother Diabetes Maternal Grandfather SKIN CANCER Heart Paternal Grandfather STROKE Breast Cancer Paternal Aunt Cancer Paternal Aunt Uterine Cancer Social History Tobacco Use Smoking status: Never Smokeless tobacco: Never Substance Use Topics Alcohol use: No Drug use: No Review of Systems Constitutional: Negative for activity change, appetite change, chills and fever. HENT: Positive for ear pain and sore throat. Negative for congestion, dental problem, drooling, ear discharge, hoarse voice, postnasal drip, sinus pressure, sinus pain and trouble swallowing. Respiratory: Positive for cough. Negative for apnea, choking, chest tightness, shortness of breath and stridor. Cardiovascular: Negative for chest pain, palpitations and leg swelling. Gastrointestinal: Negative for abdominal pain, diarrhea and vomiting. Musculoskeletal: Negative for neck pain. Skin: Negative for color change, pallor, rash and wound. Allergic/Immunologic: Negative for environmental allergies, food allergies and immunocompromised state. Neurological: Positive for headaches. Negative for dizziness and facial asymmetry. Hematological: Negative for adenopathy. Does not bruise/bleed easily. Psychiatric/Behavioral: Negative for agitation and behavioral problems. Objective BP 152/84 Pulse (!) 56 Temp 36.6 ?C (97.9 ?F) (Tympanic) Resp 16 Wt 82.3 kg (181 lb 6.4 oz) SpO2 98% BMI 34.69 kg/m? Physical Exam Vitals and nursing note reviewed. Constitutional: General: She is not in acute distress. Appearance: Normal appearance. She is normal weight. She is not ill-appearing, toxic-appearing or diaphoretic. HENT: Head: Normocephalic and atraumatic. Right Ear: Ear canal and external ear normal. Left Ear: Ear canal and external ear normal. Nose: Nose normal. No congestion or rhinorrhea. Mouth/Throat: Mouth: Mucous membranes are moist. Pharynx: Posterior oropharyngeal erythema (1 + enlarged tonsils) present. No oropharyngeal exudate. Eyes: General: Right eye: No discharge. Left eye: No discharge. Extraocular Moveme (more content not included)... [facility] 10-28-2022 History of Present illness Narrative This note was created using T1 Visions. Subjective Annia Pacheco is a 52 year old female. 52 year old female With PMH HTN presents for illness. Think I have strep Acute onset Thursday night +ear congestion +sore throat Mild cough Denies SOB or dyspnea. Denies abdominal pain Denies N/V/D Denies skin rash or lesions. Daughter recently tested positive for strep. The history is provided by the patient. No language instructor was used. Sore Throat This is a new problem. The current episode started in the past 7 days. The problem has been gradually worsening. Neither side of throat is experiencing more pain than the other. There has been no fever. The pain is at a severity of 5/10. The pain is moderate. Associated symptoms include coughing, ear pain, headaches and swollen glands. Pertinent negatives include no abdominal pain, congestion, diarrhea, drooling, ear discharge, hoarse voice, plugged ear sensation, neck pain, shortness of breath, stridor, trouble swallowing or vomiting. She has had exposure to strep. She has tried nothing for the symptoms. The treatment provided no relief. PAST MEDICAL HISTORY Diagnosis Date Endometriosis, site unspecified Endometriosis/resolved Papanicolaou smear of cervix with low grade squamous intraepithelial lesion (LGSIL) 1988 Colpo- cervicitis and metaplasia only and paps since [place] PMH - PAST MEDICAL HISTORY OF PID PMH - PAST MEDICAL HISTORY OF anxiety disorder Symptomatic menopausal or female climacteric states PAST SURGICAL HISTORY Procedure Laterality Date APPENDECTOMY DELIVERY ONLY , low cervical X2 COLPOSCOPY CERVIX UPPER/ADJACENT VAGINA 1988; 1989 Colposcopy and Bx showed cervcictis only LAPS ABD PRTM&OMENTUM DX W/WO SPEC BR/WA SPX Laparoscopy/LYSIS OF ADHESIONS TOTAL ABDOMINAL HYSTERECT W/WO RMVL TUBE OVARY 08/2005 Hysterectomy, RAYMOND/bso ALLERGIES Patient has no known allergies. MEDICATIONS escitalopram oxalate (LEXAPRO) 20 mg tablet Take 20 mg by mouth once daily. metoprolol tartrate, short acting, (LOPRESSOR) 50 mg tablet estradiol (VIVELLE-DOT) 0.1 mg/24 hr Apply 1 Patch as directed twice a week. ONE PER SKIN TWICE A WEEK paroxetine 20 mg tablet Take 20 mg by mouth once daily. MULTIVITAMIN TAB Take one(1) tablet daily. hydrOXYzine HCl (ATARAX) 25 mg tablet amoxicillin (POLYMOX, AMOXIL) 500 mg capsule Take 1 capsule by mouth twice daily for 10 days. calcium carbonate(CALTRATE 600 600 MG (1,500 MG) TAB) Take one(1) tablet twice daily. FAMILY HISTORY Problem Relation Age of Onset Cancer Mother SKIN Stroke Father Coronary Artery Disease Father Diabetes Father Diabetes Paternal Grandmother Diabetes Maternal Grandfather SKIN CANCER Heart Paternal Grandfather STROKE Breast Cancer Paternal Aunt Cancer Paternal Aunt Uterine Cancer Social History Tobacco Use Smoking status: Never Smokeless tobacco: Never Substance Use Topics Alcohol use: No Drug use: No Review of Systems Constitutional: Negative for activity change, appetite change, chills and fever. HENT: Positive for ear pain and sore throat. Negative for congestion, dental problem, drooling, ear discharge, hoarse voice, postnasal drip, sinus pressure, sinus pain and trouble swallowing. Respiratory: Positive for cough. Negative for apnea, choking, chest tightness, shortness of breath and stridor. Cardiovascular: Negative for chest pain, palpitations and leg swelling. Gastrointestinal: Negative for abdominal pain, diarrhea and vomiting. Musculoskeletal: Negative for neck pain. Skin: Negative for color change, pallor, rash and wound. Allergic/Immunologic: Negative for environmental allergies, food allergies and immunocompromised state. Neurological: Positive for headaches. Negative for dizziness and facial asymmetry. Hematological: Negative for adenopathy. Does not bruise/bleed easily. Psychiatric/Behavioral: Negative for agitation and behavioral problems. Objective BP 152/84 Pulse (!) 56 Temp 36.6 C (97.9 F) (Tympanic) Resp 16 Wt 82.3 kg (181 lb 6.4 oz) SpO2 98% BMI 34.69 kg/m Physical Exam Vitals and nursing note reviewed. Constitutional: General: She is not in acute distress. Appearance: Normal appearance. She is normal weight. She is not ill-appearing, toxic-appearing or diaphoretic. HENT: Head: Normocephalic and atraumatic. Right Ear: Ear canal and external ear normal. Left Ear: Ear canal and external ear normal. Nose: Nose normal. No congestion or rhinorrhea. Mouth/Throat: Mouth: Mucous membranes are moist. Pharynx: Posterior oropharyngeal erythema (1 + enlarged tonsils) present. No oropharyngeal exudate. Eyes: General: Right eye: No discharge. Left eye: No discharge. Extraocular Movements: Extraocular movements intact. Conjunctiva/sclera: Conjunctivae normal. Pupils: Pupils are equal, round, and reactive to light. Cardiovascular: Rate and Rhythm: Normal rate and regular rhythm. Pulses: Normal pulses. Heart sounds: Normal heart sounds. No murmur heard. No friction rub. Pulmonary: Effort: Pulmonary effort is normal. No respiratory distress. Breath sounds: No stridor. No wheezing, rhonchi or rales. Chest: Chest wall: No tenderness. Abdominal: General: Abdomen is flat. There is no distension. Palpations: Abdomen is soft. There is no mass. Tenderness: There is no abdominal tenderness. There is no right CVA tenderness, left CVA tenderness, guarding or rebound. Hernia: No hernia is present. Musculoskeletal: General: No swelling, tenderness, deformity or signs of injury. Normal range of motion. Cervical back: Normal range of motion and neck supple. No rigidity. Right lower leg: No edema. Left lower leg: No edema. Lymphadenopathy: Cervical: No cervical adenopathy. Skin: General: Skin is warm and dry. Coloration: Skin is not jaundiced or pale. Findings: No bruising, erythema, lesion or rash. Neurological: General: No focal deficit present. Mental Status: She is alert and oriented to person, place, and time. Cranial Nerves: No cranial nerve deficit. Sensory: No sensory deficit. Motor: No weakness. Coordination: Coordination normal. Gait: Gait normal. Psychiatric: Mood and Affect: Mood normal. Behavior: Behavior normal. Thought Content: Thought content normal. Judgment: Judgment normal. Assessment and Plan ASSESSMENT/PLAN: 1. Strep pharyngitis - ICD9: 034.0, ICD10: J02.0 - suspect strep - Alere Strep Test POSITIVE, no culture pending - antibiotic as written - Discussed supportive care treatment with fluids, rest and analgesia. - The patient may also use OTC cough and cold meds as needed, warm salt water gargles, throat lozenges and/or OTC throat spray as needed, and nasal saline gtts and suction prn. - Contagious dz precautions discussed- including considered contagious until on antibiotics for 24 hours - The patient should follow up in 3-5 days if symptoms persist or worsen - Call back if drooling, increased temperature, symptoms of dehydration and/or still sick in one week - STREP A MOLECULAR (POC) Queenie Alejandra APRN.CNP documented in this encounter [facility] documented as of this encounter (statuses as of 10/28/2022) [facility] History of Past illness Narrative* Problem Noted Date Resolved Date Breast screening, unspecified 05/06/2010 documented as of this encounter (statuses as of 01/09/2023) [facility] History of Past illness Narrative* Problem Noted Date Resolved Date Breast screening, unspecified 05/06/2010 documented as of this encounter (statuses as of 02/20/2023) [facility] Diagnosis Strep pharyngitis- Primary Streptococcal sore throat [facility] Diagnosis Acute otitis media, right- Primary Unspecified otitis media URI, acute Acute upper respiratory infections of unspecified site [facility] Diagnosis Streptococcal pharyngitis- Primary Streptococcal sore throat Sore throat Acute pharyngitis Cough, unspecified type documented in this encounter [facility] Summary Purpose Family History No Family History Records Found Advance Directives No Advanced Directives Records Found Additional Source Comments Source Comments (unrecognize d section and content) In the event this informatio n is protected by the Federal Confidentiality of Alcohol and Drug Abuse Patient Records regulations: The Federal rules restrict any use of the information to criminally investigate or prosecute any alcohol or drug abuse patient.[facility] the event this information is protected by the Federal Confidentiality of Alcohol and Drug Abuse Patient Records regulations: The Federal rules restrict any use of the information to criminally investigate or prosecute any alcohol or drug abuse patient.[facility] the event this information is protected by the Federal Confidentiality of Alcohol and Drug Abuse Patient Records regulations: The Federal rules restrict any use of the information to criminally investigate or prosecute any alcohol or drug abuse patient.[facility] Reason for Visit (unrecogniz ed section and content) Reason Comments Head Congestion ST, cough x2 days Reason Comments Pain, Throat Pt reported throat p ain, swelling, ear pain, x2 days. Care Teams (unrecognized sec tion and content) Shoe Stitcher Relationship Specialty Start Date End Date Jessica Hill DO [address] [facility] [address] [place] [address] PCP - General Family Medicine 01/09/23 Shoe Stitcher Relationship Specialty Start Date End Date Jessica Hill DO [address] [facility] [address] [place] [address] PCP - General Family Medicine 01/09/23 INFORMATION SOURCE (unrecogn ized section and content) FOR RECORDS PERTAINING TO PATIENTS WHO ARE OR HAVE BEEN ENROLLED IN A CHEMICAL DEPENDENCY/SUBSTANCEABUSE PROGRAM, SOME INFORMATION MAY BE OMITTED. This clinical summary was aggregated from multiple sources. Caution should be exercised in using it in the provision of clinical care. This summary normalizes information from multiple sources, and as a consequence, information in this document may materially change the coding, format and clinical context of patient data. In addition, data may be omitted in some cases. CLINICAL DECISIONS SHOULD BE BASED ON THE PRIMARY CLINICAL RECORDS. [facility], [facility]. provides no warranty or guarantee of the accuracy or completeness of information in this document.
[2023-11-23 18:10] LABS: ALB/GLOB Ratio 1.1 RATIO (0.9-2.4); AST(SGOT) 30 U/L (15-37); Alanine Aminotransfer ALT/SGPT 34 U/L (13-56); Albumin, Serum 3.7 g/dL (3.2-5.0); Alkaline Phosphatase 70 U/L (45-117); Anion Gap 6 (5-15); BUN 12 mg/dL (7-18); BUN/Creat Ratio 16.2 RATIO (10-20); Calcium,Total 8.8 mg/dL (8.5-10.1); Chloride 110 mmol/L (98-107); Cholesterol 193 mg/dL (200); Creatinine, Serum 0.74 mg/dL (0.55-1.02); EST Glomerular Filtration Rate 87 mL/min (>60); Est Glom Filt Rate - Afr Amer 105 mL/min (>60); Globulin 3.4 g/dL (2.2-4.2); Glucose 135 mg/dL (74-106); High Density Lipoprotein 29 mg/dL; Potassium 3.8 mmol/L (3.5-5.1); Protein, Total 7.1 g/dL (6.4-8.2); Sodium Level 143 mmol/L (136-145); T4 Free Direct 0.76 ng/dL (0.76-1.46); Thyroid Stim Hormone (TSH) 2.26 uIU/mL (0.358-3.74); Triglycerides 493 mg/dL
[2023-11-23 18:24] LABS: Microalbumin:Creatinine Ratio 12.9 mg/g CRE (<30 mg/g CRE)
[2023-11-23 19:38] LABS: Hemoglobin A1c 6.3 % (3.8-5.6)
== END | disposition home or self-care (01) ==
PROVIDERS: PCP Family Medicine; Referring Provider Family Medicine; Visit Provider Family Medicine
DX: I10 Essential (primary) hypertension (principal); E78.5 Hyperlipidemia, unspecified; R73.01 Impaired fasting glucose
CPT/HCPCS: 36415; 80053; 80061; 82043; 82570; 83036; 84439; 84443

== ENCOUNTER → 2023-12-04 | Outpatient (CLI) | payer BC, SELFPAY ==
--- OUTSIDE RECORDS SUMMARY | 2023-12-04 07:52 | XMS RPT_ITS | CCD ---
Author Name Unknown Address [address] [place] [address] Organization [facility] Care Team Providers Care Meal Cooker Name Role Phone Nghia Gould MD Primary Care Provider [phone] Jessica Hill DO Primary Care Provider JESSICA [...] 99.39 [degF] Ministerio Vasques MD Work Phone: [facility] 02-19-2023 14:46-0400 Body weight 82.28 kg Ministerio Vasques MD Work Phone: [facility] 02-19-2023 14:46-0400 Diastolic blood pressure 86 mm[Hg] Ministerio Vasques MD Work Phone: [facility] 02-19-2023 14:46-0400 Heart rate 70 /min Ministerio Vasques MD Work Phone: [facility] 02-19-2023 14:46-0400 Respiratory rate 18 /min Ministerio Vasques MD Work Phone: [facility] 02-19-2023 14:46-0400 SaO2% (BldA) [Mass fraction] 99 % Ministerio Vasques MD Work Phone: [facility] 02-19-2023 14:46-0400 Systolic blood pressure 138 mm[Hg] Ministerio Vasques MD Work Phone: [facility] 01-09-2023 09:12-0500 Body temperature 98.29 [degF] Krislyn Aberegg PA Work Phone: [facility] 01-09-2023 09:12-0500 Body weight 81.74 kg Krislyn Aberegg PA Work Phone: [facility] 01-09-2023 09:12-0500 Diastolic blood pressure 94 mm[Hg] Krislyn Aberegg PA Work Phone: [facility] 01-09-2023 09:12-0500 Heart rate 67 /min Krislyn Aberegg PA Work Phone: [facility] 01-09-2023 09:12-0500 Respiratory rate 20 /min Krislyn Aberegg PA Work Phone: [facility] 01-09-2023 09:12-0500 SaO2% (BldA) [Mass fraction] 97 % Krislyn Aberegg PA Work Phone: [facility] 01-09-2023 09:12-0500 Systolic blood pressure 150 mm[Hg] Krislyn Aberegg PA Work Phone: [facility] 10-28-2022 13:42-0500 Body temperature 97.9 [degF] Queenie Alejandra TIGHTENING MACHINE OPERATOR.MICROCOMPUTER SUPPORT SPECIALIST Work Phone: [facility] 10-28-2022 13:42-0500 Body weight 82.28 kg Queenie Alejandra TIGHTENING MACHINE OPERATOR.MICROCOMPUTER SUPPORT SPECIALIST Work Phone: [facility] 10-28-2022 13:42-0500 Diastolic blood pressure 84 mm[Hg] Queenie Alejandra TIGHTENING MACHINE OPERATOR.MICROCOMPUTER SUPPORT SPECIALIST Work Phone: [facility] 10-28-2022 13:42-0500 Heart rate 56 /min Queenie Alejandra TIGHTENING MACHINE OPERATOR.MICROCOMPUTER SUPPORT SPECIALIST Work Phone: [facility] 10-28-2022 13:42-0500 Respiratory rate 16 /min Queenie Alejandra TIGHTENING MACHINE OPERATOR.MICROCOMPUTER SUPPORT SPECIALIST Work Phone: [facility] 10-28-2022 13:42-0500 SaO2% (BldA) [Mass fraction] 98 % Queenie Alejandra TIGHTENING MACHINE OPERATOR.MICROCOMPUTER SUPPORT SPECIALIST Work Phone: [facility] 10-28-2022 13:42-0500 Systolic blood pressure 152 mm[Hg] Queenie Alejandra TIGHTENING MACHINE OPERATOR.MICROCOMPUTER SUPPORT SPECIALIST Work Phone: [facility] Encounters Encounter Date Encounter Type Care Provider Facility Start: 02-19-2023 End: 02-19-2023 ambulatory JESSICA HILL Facility:[facility] Start: 02-19-2023 End: 02-19-2023 Patient encounter procedure Ministerio Vasques MD Work Phone: [facility] Care Procedures Date Procedure Procedure Detail Performing Clinician Start: 02-19-2023 STREP A MOLECULAR (POC) Conrad Frederick TIGHTENING MACHINE OPERATOR.MICROCOMPUTER SUPPORT SPECIALIST Work Phone: Start: 10-28-2022 STREP A MOLECULAR (POC) Sofie Mcgrath TIGHTENING MACHINE OPERATOR.JOHNNA Work Phone: Start: 10-22-2016 Mammography Queenie Calvert ggs TIGHTENING MACHINE OPERATOR.MICROCOMPUTER SUPPORT SPECIALIST Work Phone: Plan of Treatment Date Care Activity Detail Author Start: 07-10-2023 Influenza vaccination INFLUENZA (Sea son Ended) [facility] Start: 11-09-2022 DEPRESSION ASSESSMENT DEPRESSION ASS [facility] Start: 07-10-2022 Influenza vaccination INFLUENZA (#1) [facility] Start: 11-09-2021 DEPRESSION ASSESSMENT DEPRESSION ASS [facility] Start: 2020 SHINGRIX VACCINE (1 of 2) SHINGRIX V ACCINE (1 of 2) [facility] Start: 10-22-2017 Mammography MAMMOGRAM [facility] Start: 2015 COLOGUARD (FIT-DNA) COLOGUARD (FIT-D NA) [facility] Start: 2015 Colonoscopy COLONOSCOPY [facility] Start: 2015 COLORECTAL CANCER SCREENING COLORECTAL CANCER SCREENING [facility] Start: [address] COLONOGRAPHY [facility] Start: 2015 DIABETES SCREEN DIABETES SCREEN [facility] Start: 2015 FECAL OCCULT BLOOD FECAL OCCULT BLOO D [facility] Start: 2015 LIPID SCREEN LIPID SCREEN [facility] Start: 2015 SIGMOIDOSCOPY SIGMOIDOSCOPY [facility] Start: 1989 Urine microalbumin profile DTAP,TDAP ,TD (1 - Tdap) [facility] Start: 1988 HEPATITIS C SCREENING HEPATITIS C SC REENING [facility] Start: 1988 HIV SCREENING HIV SCREENING [facility] Start: 1970 COVID-19 VACCINE (#1) COVID-19 VACCI NE (#1) [facility] Start: 1970 HEPATITIS B (1 of 3 - 3-dose series) HEPATITIS B (1 of 3 - 3-dose series) [facility] Payers Date Payer Category Payer Unknown [employer] PPO OOS [id number] 2018-Present [phone] [address] [place] [address] PPO [id number] 2018 Unknown [id number] Social History Date Type Detail Facility Start: 10-28-2022 Tobacco smoking stat [facility] Never smoked tobacco [facility] Start: 10-28-2022 Tobacco use and exposure Smoke less tobacco non-user [facility] Start: 10-28-2022 End: 02-19-2023 Alcohol intake Current non-drinker of alcohol (finding) [facility] Start: 1970 Sex Assigned At Not on file C [facility] Clinical Notes 05-06-2010 to 02-19-2023 Ministerio Vasques MD - 02/19/2023 2:52 PM PAYTON Oliva - 01/09/2023 9:18 AM Sydney Alejandra APRN.CNP - 10/28/2022 1:51 PM EST Note Date & Type Note Facility 02-19-2023 Note HNO ID: [id number] Author: Ministerio Vasques MD Service: ? Author [...] BENZONATATE 100 MG CAPSULE Ministerio Vasques MD [facility] 02-19-2023 History of Present illness Narrative Patient [...] Ministerio Vasques MD documented in this encounter [facility] 01-09-2023 Note HNO ID: [id number] Author: PAYTON Lombardo Service: ? Author Type: Physician Infant And Toddler Teacher Type: Progress Notes Filed: 01/09/2023 9:20 AM Note Text: This note was created using Studyplacesriter. Subjective Annia Pacheco is a 52 year [...] detail warranting prompt ER evaluation. PAYTON Lombardo [facility] 01-09-2023 History of Present illness Narrative This note was created using Studyplacesriter. Subjective Annia Pacheco is a 52 year [...] evaluation. PAYTON Lombardo documented in this encounter [facility] 10-28-2022 Note HNO ID: [id number] Author: Queenie Alejandra APRN.MICROCOMPUTER SUPPORT SPECIALIST Service: ? Author Type: Nurse Practitioner Type: [...] history is provided by the patient. No speech and language assistant was used. Sore Throat This is a [...] discharge. Extraocular Moveme (more content not included)... [facility] 10-28-2022 History of Present illness Narrative This note was created using H[employer]One. Subjective Annia Pacheco is a 52 year old female. 52 year old female With PMH HTN presents for illness. Think I have strep Acute onset Thursday night +ear congestion +sore throat Mild cough Denies SOB or dyspnea. Denies abdominal pain Denies N/V/D Denies skin rash or lesions. Daughter recently tested positive for strep. The history is provided by the patient. No speech and language assistant was used. Sore Throat This is a [...] Queenie Alejandra APRN.CNP documented in this encounter [facility] documented as of this encounter (statuses as of 10/28/2022) [facility] History of Past illness Narrative* Problem Noted Date Resolved Date Breast screening, unspecified 05/06/2010 documented as of this encounter (statuses as of 01/09/2023) [facility] History of Past illness Narrative* Problem Noted Date Resolved Date Breast screening, unspecified 05/06/2010 documented as of this encounter (statuses as of 02/20/2023) [facility] Diagnosis Strep pharyngitis- Primary Streptococcal sore throat [facility] Diagnosis Acute otitis media, right- Primary Unspecified otitis media URI, acute Acute upper respiratory infections of unspecified site [facility] Diagnosis Streptococcal pharyngitis- Primary Streptococcal sore throat Sore throat Acute pharyngitis Cough, unspecified type documented in this encounter [facility] Summary Purpose Family History No Family History [...] or prosecute any alcohol or drug abuse patient.[facility] the event this information is protected by the Federal Confidentiality of Alcohol and Drug Abuse Patient Records regulations: The Federal rules restrict any use of the information to criminally investigate or prosecute any alcohol or drug abuse patient.[facility] the event this information is protected by the Federal Confidentiality of Alcohol and Drug Abuse Patient Records regulations: The Federal rules restrict any use of the information to criminally investigate or prosecute any alcohol or drug abuse patient.[facility] Reason for Visit (unrecogniz ed section and content) Reason Comments Head Congestion ST, cough x2 days Reason Comments Pain, Throat Pt reported throat p ain, swelling, ear pain, x2 days. Care Teams (unrecognized sec tion and content) Meal Cooker Relationship Specialty Start Date End Date Jessica Hill DO [address] [facility] [address] [place] [address] PCP - General Family Medicine 01/09/23 Meal Cooker Relationship Specialty Start Date End Date Jessica Hill DO [address] [facility] [address] [place] [address] PCP - General Family Medicine 01/09/23 INFORMATION [...] BE BASED ON THE PRIMARY CLINICAL RECORDS. [facility], [facility]. provides no warranty or guarantee of the accuracy or completeness of information in this document.
[2023-12-04 10:52] LABS: Cholesterol 193 mg/dL (200); High Density Lipoprotein 35 mg/dL; Triglycerides 360 mg/dL; Very Low Density Lipoprotein 72 mg/dL (5-40)
== END | disposition home or self-care (01) ==
LOC: MTLAB 07:43
PROVIDERS: PCP Family Medicine; Referring Provider Family Medicine; Visit Provider Family Medicine
DX: E78.5 Hyperlipidemia, unspecified (principal)
CPT/HCPCS: 36415; 80061

== ENCOUNTER → 2023-12-09 | Outpatient (CLI) | payer BC, SELFPAY ==
--- NOTE | 2023-12-09 10:45 | BI_ITS ---
MAMMOGRAPHY - BILATERAL SCREENING REASON FOR EXAM: Female, 53 years old. Routine annual screening examination. PERTINENT HISTORY: Aunt with breast cancer. TECHNIQUE: Digital bilateral breast trevor (3D mammographic acquisition) in the CC and MLO projections. 2-D mediolateral oblique (MLO) and craniocaudad (CC) views of both breasts were obtained. CAD: Full Field Digital Mammography with Computer Added Detection was performed. COMPARISON: Comparison is made with prior study dated December 08, 2022 and June 03, 2022. FINDINGS: Breast Composition: There are scattered areas of fibroglandular density. There are no dominant masses or suspicious calcifications. Stable 4 mm well-defined nodule in the deep central outer left breast. Benign appearing bilateral axillary lymph nodes. No other significant abnormalities are identified. There has been no significant change since the prior study. BI/SCRN MAMM (CAD)W/TREVOR BILAT IMPRESSION: Stable bilateral screening mammogram. Yearly follow-up mammogram recommended. (A) ASSESSMENT CATEGORY: BIRADS Category 2: Benign. A letter regarding these results will be sent to the patient by the facility within 30 days. Approximately 10% of breast cancers are not detected by mammography. A normal mammogram should not delay biopsy of a clinically suspicious abnormality. [id number] Electronically Signed: Corbin Moreno MD at 10:09 EST ,
--- OUTSIDE RECORDS SUMMARY | 2023-12-09 12:07 | XMS RPT_ITS | CCD ---
Author Name Unknown Address [address] [place] [address] Organization [facility] Care Team Providers Care Film Crew Member Name Role Phone Nghia Gould MD Primary Care Provider Jessica Hill DO Primary Care Provider [phone] JESSICA HILL Primary Care Unavailable JESSICA HILL [...] 99.39 [degF] Ministerio Vasques MD Work Phone: [facility] 02-19-2023 14:46-0400 Body weight 82.28 kg Ministerio Vasques MD Work Phone: [facility] 02-19-2023 14:46-0400 Diastolic blood pressure 86 mm[Hg] Ministerio Vasques MD Work Phone: [facility] 02-19-2023 14:46-0400 Heart rate 70 /min Ministerio Vasques MD Work Phone: [facility] 02-19-2023 14:46-0400 Respiratory rate 18 /min Ministerio Vasques MD Work Phone: [facility] 02-19-2023 14:46-0400 SaO2% (BldA) [Mass fraction] 99 % Ministerio Vasques MD Work Phone: [facility] 02-19-2023 14:46-0400 Systolic blood pressure 138 mm[Hg] Ministerio Vasques MD Work Phone: [facility] 01-09-2023 09:12-0500 Body temperature 98.29 [degF] Krislyn Aberegg PA Work Phone: [facility] 01-09-2023 09:12-0500 Body weight 81.74 kg Krislyn Aberegg PA Work Phone: [facility] 01-09-2023 09:12-0500 Diastolic blood pressure 94 mm[Hg] Krislyn Aberegg PA Work Phone: [facility] 01-09-2023 09:12-0500 Heart rate 67 /min Krislyn Aberegg PA Work Phone: [facility] 01-09-2023 09:12-0500 Respiratory rate 20 /min Krislyn Aberegg PA Work Phone: [facility] 01-09-2023 09:12-0500 SaO2% (BldA) [Mass fraction] 97 % Krislyn Aberegg PA Work Phone: [facility] 01-09-2023 09:12-0500 Systolic blood pressure 150 mm[Hg] Krislyn Aberegg PA Work Phone: [facility] 10-28-2022 13:42-0500 Body temperature 97.9 [degF] Queenie Alejandra DEPUTY FIRE CHIEF[employer] Work Phone: [facility] 10-28-2022 13:42-0500 Body weight 82.28 kg Queenie Alejandra DEPUTY FIRE CHIEF[employer] Work Phone: [facility] 10-28-2022 13:42-0500 Diastolic blood pressure 84 mm[Hg] Queenie Alejandra DEPUTY FIRE CHIEF[employer] Work Phone: [facility] 10-28-2022 13:42-0500 Heart rate 56 /min Queenie Alejandra DEPUTY FIRE CHIEF[employer] Work Phone: [facility] 10-28-2022 13:42-0500 Respiratory rate 16 /min Queenie Alejandra DEPUTY FIRE CHIEF[employer] Work Phone: [facility] 10-28-2022 13:42-0500 SaO2% (BldA) [Mass fraction] 98 % Queenie Alejandra DEPUTY FIRE CHIEF[employer] Work Phone: [facility] 10-28-2022 13:42-0500 Systolic blood pressure 152 mm[Hg] Queenie Alejandra DEPUTY FIRE CHIEF[employer] Work Phone: [facility] Encounters Encounter Date Encounter Type Care Provider Facility Start: 02-19-2023 End: 02-19-2023 ambulatory JESSICA HILL Facility:[facility] Start: 02-19-2023 End: 02-19-2023 Patient encounter procedure Ministerio Vasques MD Work Phone: [facility] Care Procedures Date Procedure Procedure Detail Performing Clinician Start: 02-19-2023 STREP A MOLECULAR (POC) Conrad Frederick DEPUTY FIRE CHIEF[employer] Work Phone: Start: 10-28-2022 STREP A MOLECULAR (POC) Sofie Mcgrath DEPUTY FIRE CHIEF.JOHNNA Work Phone: Start: 10-22-2016 Mammography Queenie Calvert ggs DEPUTY FIRE CHIEF[employer] Work Phone: Plan of Treatment Date Care Activity Detail Author Start: 07-10-2023 Influenza vaccination INFLUENZA (Sea son Ended) [facility] Start: 11-09-2022 [facility]MENT [facility] Start: 07-10-2022 Influenza vaccination INFLUENZA (#1) [facility] Start: 11-09-2021 DEPRESSION ASSESSMENT [facility] Start: 2020 SHINGRIX VACCINE (1 of 2) SHINGRIX V ACCINE (1 of 2) [facility] Start: 10-22-2017 Mammography MAMMOGRAM [facility] Start: 2015 COLOGUARD (FIT-DNA) COLOGUARD (FIT-D NA) [facility] Start: 2015 Colonoscopy COLONOSCOPY [facility] Start: 2015 COLORECTAL CANCER SCREENING COLORECTAL CANCER SCREENING [facility] Start: [address] COLONOGRAPHY [facility] Start: 2015 DIABETES SCREEN DIABETES SCREEN [facility] Start: 2015 FECAL OCCULT BLOOD FECAL OCCULT BLOO D [facility] Start: 2015 LIPID SCREEN LIPID SCREEN [facility] Start: 2015 SIGMOIDOSCOPY SIGMOIDOSCOPY [facility] Start: 1989 Urine microalbumin profile DTAP,TDAP ,TD (1 - Tdap) [facility] Start: 1988 HEPATITIS C SCREENING HEPATITIS C SC REENING [facility] Start: 1988 HIV SCREENING HIV SCREENING [facility] Start: 1970 COVID-19 VACCINE (#1) COVID-19 VACCI NE (#1) [facility] Start: 1970 HEPATITIS B (1 of 3 - 3-dose series) HEPATITIS B (1 of 3 - 3-dose series) [facility] Payers Date Payer Category Payer Unknown [employer] PPO OOS [id number] 2018-Present [phone] [address] [place] [address] PPO [id number] 2018 Unknown [id number] Social History Date Type Detail Facility Start: 10-28-2022 Tobacco smoking stat [facility] Never smoked tobacco [facility] Start: 10-28-2022 Tobacco use and exposure Smoke less tobacco non-user [facility] Start: 10-28-2022 End: 02-19-2023 Alcohol intake Current non-drinker of alcohol (finding) [facility] Start: 1970 Sex Assigned At Not on file [facility] Clinical Notes 05-06-2010 to 02-19-2023 Ministeroi Vasques MD - 02/19/2023 2:52 PM PAYTON Oliva - 01/09/2023 9:18 AM Sydney Alejandra APRN.CNP - 10/28/2022 1:51 PM EST Note Date & Type Note Facility 02-19-2023 Note HNO ID: [id number] Author: Ministerio Vasques MD Service: ? Author [...] BENZONATATE 100 MG CAPSULE Ministerio Vasques MD [facility] 02-19-2023 History of Present illness Narrative [...] Ministerio Vasques MD documented in this encounter [facility] 01-09-2023 Note HNO ID: [id number] Author: PAYTON Lombardo Service: ? Author Type: Physician Software Qa System Specialist Type: Progress Notes Filed: 01/09/2023 9:20 AM Note Text: This note was created using Singspielriter. Subjective Annia Pacheco is a 52 year [...] detail warranting prompt ER evaluation. PAYTON Lombardo [facility] 01-09-2023 History of Present illness Narrative This note was created using Singspielriter. Subjective Annia Pacheco is a 52 year [...] evaluation. PAYTON Lombardo documented in this encounter [facility] 10-28-2022 Note HNO ID: [id number] Author: Queenie Alejandra APRN.[employer] Service: ? Author Type: Nurse Practitioner Type: [...] history is provided by the patient. No multi disciplined language analyst was used. Sore Throat This is a [...] discharge. Extraocular Moveme (more content not included)... [facility] 10-28-2022 History of Present illness Narrative This note was created using Jamba!. Subjective Annia Pacheco is a 52 year old female. 52 year old female With PMH HTN presents for illness. Think I have strep Acute onset Thursday night +ear congestion +sore throat Mild cough Denies SOB or dyspnea. Denies abdominal pain Denies N/V/D Denies skin rash or lesions. Daughter recently tested positive for strep. The history is provided by the patient. No multi disciplined language analyst was used. Sore Throat This is a [...] Queenie Alejandra APRN.CNP documented in this encounter [facility] documented as of this encounter (statuses as of 10/28/2022) [facility] History of Past illness Narrative* Problem Noted Date Resolved Date Breast screening, unspecified 05/06/2010 documented as of this encounter (statuses as of 01/09/2023) [facility] History of Past illness Narrative* Problem Noted Date Resolved Date Breast screening, unspecified 05/06/2010 documented as of this encounter (statuses as of 02/20/2023) [facility] Diagnosis Strep pharyngitis- Primary Streptococcal sore throat documented [facility] this [facility] Diagnosis Acute otitis media, right- Primary Unspecified otitis media URI, acute Acute upper respiratory infections of unspecified site documented [facility] this encounter [facility] Diagnosis Streptococcal pharyngitis- Primary Streptococcal sore throat Sore throat Acute pharyngitis Cough, unspecified type documented in this encounter [facility] Summary Purpose Family History No Family [...] or prosecute any alcohol or drug abuse patient.[facility] the event this information is protected by the Federal Confidentiality of Alcohol and Drug Abuse Patient Records regulations: The Federal rules restrict any use of the information to criminally investigate or prosecute any alcohol or drug abuse patient.[facility] the event this information is protected by the Federal Confidentiality of Alcohol and Drug Abuse Patient Records regulations: The Federal rules restrict any use of the information to criminally investigate or prosecute any alcohol or drug abuse patient.[facility] Reason for Visit (unrecogniz ed section and content) Reason Comments Head Congestion ST, cough x2 days Reason Comments Pain, Throat Pt reported throat p ain, swelling, ear pain, x2 days. Care Teams (unrecognized sec tion and content) Film Crew Member Relationship Specialty Start Date End Date Jessica Hill DO [address] [place] [address] PCP - General Family Medicine 01/09/23 Film Crew Member Relationship Specialty Start Date End Date Jessica Hill DO [address] [facility] [address] [place] [address] PCP - General Family Medicine 01/09/23 INFORMATION [...] BE BASED ON THE PRIMARY CLINICAL RECORDS. [facility], [facility]. provides no warranty or guarantee of the accuracy or completeness of information in this document.
== END | disposition home or self-care (01) ==
LOC: OPBI 10:45
PROVIDERS: PCP Family Medicine; Referring Provider Obstetrics & Gynecology; Visit Provider Obstetrics & Gynecology
DX: Z12.31 Encounter for screening mammogram for malignant neoplasm of breast (principal)
CPT/HCPCS: 77063; 77067

== ENCOUNTER → 2024-06-23 | Outpatient (CLI) | payer BC, SELFPAY | END | disposition home or self-care (01) | LOC: MFPLAB 10:24 | PROVIDERS: PCP Family Medicine; Visit Provider Family Medicine | DX: E03.9 Hypothyroidism, unspecified (principal) | CPT/HCPCS: 36415; 84443 ==

== ENCOUNTER → 2024-12-23 | Outpatient (CLI) | payer BC, SELFPAY ==
--- NOTE | 2024-12-23 08:30 | BI_ITS ---
PROCEDURE: SCRN MAMM (CAD)W/TREVOR BILAT REASON FOR EXAM: F, Age 54 y/o, presents for annual screening mammogram. Family history of breast cancer in a paternal aunt in her 50s. TECHNIQUE: Bilateral screening digital breast tomosynthesis with 2D and 3D images. Computer aided detection. COMPARISON: 12/09/2023, 12/08/2022 FINDINGS: There are scattered areas of fibroglandular density. No suspicious masses, areas of developing architectural distortion, or suspicious calcifications. BI/SCRN MAMM (CAD)W/TREVOR BILAT IMPRESSION: There is no mammographic evidence of malignancy in either breast. BI-RADS 1: NEGATIVE. RECOMMEND ANNUAL MAMMOGRAPHIC SCREENING. Follow-up code: Routine Follow-up The patient will be notified of the results by letter. Reading Location: [id number]
== END | disposition home or self-care (01) ==
LOC: OPBI 08:13
PROVIDERS: PCP Family Medicine; Referring Provider Nurse Practitioner Women's Health; Visit Provider Nurse Practitioner Women's Health
DX: Z12.31 Encounter for screening mammogram for malignant neoplasm of breast (principal)
CPT/HCPCS: 77063; 77067

== ENCOUNTER → 2025-01-19 | Outpatient (CLI) | payer BC, SELFPAY ==
[2025-01-19 10:32] LABS: Absolute Lymphocyte Count 2.24 X10^3/uL (0.83-4.51); Absolute Neutrophil Count 5.3 X10^3/uL (2.0-7.7); Basophil# 0.08 X10^3/uL; Basophil% 0.9 % (0-1); Eosinophil# 0.29 X10^3/uL; Eosinophils% 3.4 % (0-5); Hematocrit 39.6 % (37-47); Hemoglobin 12.8 g/dL (12.0-15.0); Lymphocyte # 2.24 X10^3/ul (0.83-4.51); Lymphocyte % 26.5 % (19-41); Mean Corp Hgb Conc 32.3 g/dL (32-36); Mean Corpuscular Hgb 28.6 pg (27.0-32.0); Mean Corpuscular Volume 88.4 fL (81-99); Mean Platelet Vol. 9.9 fl (6.2-12.0); Monocyte# 0.48 X10^3/uL; Monocyte% 5.7 % (0-10); NRBC Flagged by Analyzer 0 % (0-5); Neutrophil # 5.34 X10^3/uL (2.7-7.7); Neutrophil % 63.1 % (47-70); Platelet Count 290 K/mm3 (150-450); RBC Distribution Width CV 12.8 % (11.6-14.6); RBC Distribution Width SD 41.4 fl (35.1-43.9); Red Blood Count 4.48 M/mm3 (4.2-5.4); White Blood Count 8.5 K/mm3 (4.4-11.0)
[2025-01-19 12:25] LABS: ALB/GLOB Ratio 1.5 RATIO (0.9-2.4); AST(SGOT) 19 U/L (<=31); Alanine Aminotransfer ALT/SGPT 16 U/L (<=34); Albumin, Serum 4.2 g/dL (3.5-5.0); Alkaline Phosphatase 77 U/L (35-104); Anion Gap 13 (5-15); BUN 11 mg/dL (4-19); BUN/Creat Ratio 14.1 RATIO (10-20); Carbon Dioxide 21.8 mmol/L (21.0-32.0); Chloride 106 mmol/L (98-108); Cholesterol 186 mg/dL (<=200); Creatinine, Serum 0.75 mg/dL (0.70-1.20); EST Glomerular Filtration Rate 95 (>60); Globulin 2.7 g/dL (2.2-4.2); Glucose 83 mg/dL (70-99); High Density Lipoprotein 35 mg/dL; Low Density Lipoprotein Calc. 72 mg/dL; Potassium 4.1 mmol/L (3.3-5.1); Protein, Total 6.9 g/dL (5.9-8.4); Sodium Level 141 mmol/L (133-145); Total Bilirubin 0.26 mg/dL (0.00-1.30); Triglycerides 396 mg/dL; Very Low Density Lipoprotein 79 mg/dL (5-40); cholesterol:hdl ratio screen 5.34
== END | disposition home or self-care (01) ==
LOC: MFPLAB 08:38
PROVIDERS: PCP Family Medicine; Referring Provider Family Medicine; Visit Provider Family Medicine
DX: I10 Essential (primary) hypertension (principal)
CPT/HCPCS: 36415; 80053; 80061; 84443; 85025

== ENCOUNTER → 2025-07-04 | Outpatient (CLI) | payer BC, SELFPAY ==
[2025-07-04 12:34] LABS: Hematocrit 39.7 % (37-47); Hemoglobin 13.0 g/dL (12.0-15.0); Mean Corp Hgb Conc 32.7 g/dL (32-36); Mean Corpuscular Volume 89.4 fL (81-99); Mean Platelet Vol. 9.7 fl (6.2-12.0); Platelet Count 256 K/mm3 (150-450); RBC Distribution Width CV 12.3 % (11.6-14.6); RBC Distribution Width SD 39.9 fl (35.1-43.9); Red Blood Count 4.44 M/mm3 (4.2-5.4); White Blood Count 7.2 K/mm3 (4.4-11.0)
[2025-07-04 12:48] LABS: Creatinine, Urine (random) 168.00 mg/dL (28.00-217.00); Microalbumin,Random Urine < 12.0 mg/L (<20 mg/L)
--- OUTSIDE RECORDS SUMMARY | 2025-07-04 12:50 | XMS RPT_ITS | CCD ---
Author Organization [facility] Care Team Providers Care Medical Record Consultant Name Role Phone Joselito Ashraf MD Primary Care Provider DO Jessica Hill Primary Care Provider DO Jessica Hill Referring Provider [phone] Marivel Chavez Attending Provider [phone] Jessica Hill DO Primary Care Provider DO Jessica Hill Primary Care Provider DO Jessica Hill Referring Provider Dr. Marivel Chavez Attending Provider [phone] Jessica Hill DO Primary Care Provider [phone] JESSICA HILL Primary Care Unavailable JESSICA HILL Primary Care Unavailable BREONNA JERONIMO Referring Unavailable Susan, Chalon Attending Unavailable Susan, Chalon Primary Care Unavailable Susan, Chalon Primary Care Unavailable [place] HEAD START TEACHER, Fabi Referring Unavailable Tania HEAD START TEACHER, Fabi Attending Unavailable Susan, Chalon Attending Unavailable Susan, Chalon Primary Care Unavailable Susan, Chalon Referring Unavailable Susan, Chalon Referring Unavailable Susan, Chalon Primary Care Unavailable [place] HEAD START TEACHER, Fabi Attending Unavailable Nguyen aDvis MD Primary Care Provider [phone] Nguyen Davis MD Referring Provider [phone] [place] HEAD START TEACHER-CFabi Attending Provider Tania HEAD START TEACHER-CValdoy Referring Provider Nguyen Davis MD Attending Provider [phone] Medications Current Medications Medication Drug Class(es) Dates Sig (Normalized) Sig (Original) amoxicillin 500 mg oral tablet (3 sources) Penicillin-class Antibacterial Start: 02-19-2023 End: 03-01-2023 take 1 tablet by mouth twice daily Amoxicillin 500 mg tablet Indications: Streptococcal pharyngitis Take 1 tablet by mouth twice daily for 10 days. 20 tablet 0 02/19/2023 03/01/2023 Active Start: 01-09-2023 End: 01-16-2023 take 1 tablet by mouth twice daily amoxicillin (AMOXIL) 875 mg tablet Take 1 tablet by mouth twice daily for 7 days. 14 tablet 0 01/09/2023 01/16/2023 Active Start: 10-28-2022 End: 11-07-2022 take 1 capsule by mouth twice daily amoxicillin (POLYMOX, AMOXIL) 500 mg capsule Take 1 capsule by mouth twice daily for 10 days. 20 capsule 0 10/28/2022 11/07/2022 Active Comment on above: Take 1 capsule by [facility] twice daily for 10 days. Take 1 tablet by [facility] twice daily for 7 days. Take 1 tablet by [facility] twice daily for 10 days. benzonatate 100 mg oral capsule (5 sources) Non-narcotic Antitussive Start: 01-10-20 End: 02-20-20 take 1 capsule by mouth every eight hours as needed for cough and cough benzonatate (TESSALON PERLES) 100 mg capsule Indications: Cough, unspecified type Take 1 capsule by mouth three times daily as needed. 14 capsule 02/19/2023 Active Comment on above: Take 1 capsule by [facility] three times daily as needed. calcium carbonate 1500 mg oral tablet (5 sources) Start: 05-02-20 calcium carbonate(CALTRATE 600 600 MG (1,500 MG) TAB) Take one(1) tablet twice daily. 0 05/02/2010 Active Comment on above: Take one(1) tablet t wice daily. doxycycline hyclate 100 mg oral tablet (1 source) Tetracycline-class Drug Start: 07-14-20 End: 07-21-20 take 1 tablet by mouth twice daily doxycycline (VIBRA-TABS) 100 mg tablet Indications: Rhinosinusitis Take 1 tablet by mouth two times a day for 7 days. 14 tablet 07/14/2024 07/21/2024 Active escitalopram 20 mg oral tablet (11 sources) Serotonin Reuptake Inhibitor Start: 10-18-20 take 1 tablet by mouth once daily escitalopram oxalate (LEXAPRO) 20 mg tablet Take 20 mg by mouth once daily. 10/18/2022 Active Start: 09-17-2020 take 1 tablet by andrea th once daily Escitalopram Oxalate (Lexapro) 10 mg tablet Active 10 mg PO DAILY September 17, 2020 1:00am Comment on above: Take 20 mg by mouth once daily. 84 hr estradiol 0.13019 mg/hr transdermal system (20 sources) Estrogen Start: 8 End: apply 1 dose transdermal route two times weekly, then apply 1 dose transdermal route once Estradiol 0.025 mg/24 hr patch semiweekly Active 1 NMA TD TWICE A WEEK October 18, 2024 9:12am apply 1 patch for 3 days alternating with 1 patch for 4 days each week Start: 10-14-2018 End: 10-16-2023 apply 1 dose transdermal route two times weekly, then apply 1 dose transdermal route once Estradiol Discontinued 1 PATCH TD TWICE A WEEK August 13, 2021 7:00am October 10, 2021 11:48am apply 1 patch for 3 days alternating with 1 patch for 4 days each week Start: 10-22-2016 estradiol (FLOYD SHONNA-ANNA) 0.1 mg/24 hr Apply 1 Patch as directed twice a week. ONE PER SKIN TWICE A WEEK 8 Patch 13 10/22/2016 Active Comment on above: Apply 1 Patch as dir ected twice a week. ONE PER SKIN TWICE A WEEK hydrOXYzine hydrochloride 25 mg oral tablet (11 sources) Antihistamine Start: 09-17-20 take 1 tablet by mouth at bedtime Hydroxyzine Hcl 25 mg tablet Active 25 mg PO AT BEDTIME September 17, 2020 1:00am metoprolol tartrate 75 mg oral tablet (11 sources) beta-Adrenergic Nikia Start: 09-28-20 22 take 1 tablet by mouth twice daily metoprolol tartrate 75 mg tab Take 75 mg by mouth two times a day. 09/28/2022 Active Start: 09-07-2018 metoprolol tar trate, short acting, (LOPRESSOR) 50 mg tablet MULTIVITAMIN TAB (5 sources) Start: 05-02-2010 MULTIVITAMIN TAB Take one(1) tablet daily. 0 05/02/2010 Active Comment on above: Take one(1) tablet d katheryny. Semaglutide (Weight Loss) (1 source) Start: 10-18-2024 Semaglutide (Weight Loss) 1 mg/0.5 mL pen injector Active 0.96 mg SC EVERY WEEK October 18, 2024 1:00am administer weeks 9 through 12 of therapy semaglutide, weight loss, (WEGOVY) 0.5 mg/0.5 mL pen injector (2 sources) inject 0.5 mg by subcutaneous injection every week semaglutide, weight loss, (WEGOVY) 0.5 mg/0.5 mL pen injector Inject 0.5 mg subcutaneously one time a week. Active Completed/Discontinued Medications Medication Drug Class(es) Dates Sig (Normalized) Sig (Original) acetaminophen 325 mg / oxyCODONE hydrochloride 5 mg oral tablet (6 sources) Opioid Agonist Start: 09-07-2018 End: 09-10-2018 Oxycodone-Acetamino phen 1 TABLET tablet Discontinued 1 {tbl} PO EVERY 6 HOURS NEEDED as needed for Pain 12 September 07, 2018 12:00am September 09, 2018 12:00am September 10, 2018 12:10am Start: 09-07-2018 End: 09-10-2018 take 1 tablet by mouth every six hours as needed Oxycodone-Acetaminophen Discontinued 1 TABLET PO EVERY 6 HOURS NEEDED 12 September 06, 2018 11:00pm September 09, 2018 11:10pm ondansetron 4 mg disintegrating oral tablet (6 sources) Serotonin-3 Receptor Antagonist Start: 09-07-2018 End: 01-31-2019 take 1 tablet by mouth every eight hours as needed for nausea Ondansetron 4 MG tablet Discontinued 4 mg PO EVERY 8 HOURS NEEDED as needed for Nausea September 07, 2018 12:00am January 31, 2019 11:01am PARoxetine hydrochloride 30 mg oral tablet (11 sources) Serotonin Reuptake Inhibitor Start: 04-21-2015 End: 09-17-2020 Paroxetine Hcl 30 MG tablet Discontinued 40 mg PO DAILY April 21, 2015 12:00am September 17, 2020 9:43am Start: 04-21-2015 End: 09-17-2020 take 40 mg by mouth once daily Paroxetine Hcl Disconti nued 40 MG PO DAILY April 20, 2015 11:00pm September 17, 2020 8:43am take 1 tablet by andrea th once daily paroxetine 20 mg tablet Take 20 mg by mouth once daily. Active Comment on above: Take 20 mg by mouth once daily. tamsulosin hydrochloride 0.4 mg oral capsule (6 sources) alpha-Adrenergic Nikia Start: 8 End: 9 take 1 capsule by mouth once daily Tamsulosin 0.4 MG capsule Discontinued 0.4 mg PO DAILY September 07, 2018 12:00am January 31, 2019 11:01am Problems Problem Classification Problem Date Documented Date Episodic/Chronic Essential hypertension (1 source) Essential (primary) hypertension; Translations: [Essential (primary) hypertension] Onset: 01-30-2025 Chronic Menopausal disorders (12 sources) Menopausal syndrome; Translations: [Menopausal and female climacteric states] Onset: 02-26-2009 02-26-2009 Chronic Comment on above: akbar laurent. Other lower respiratory disease (3 sources) Cough; Translations: [Cough, unspecified type] Episodic Other screening for suspected conditions (not mental disorders or infectious disease) (4 sources) Patient encounter status; Translations: [Encounter for other screening for malignant neoplasm of breast] Onset: 05-06-2010 Resolved: 06-11-2012 06-11-2012 Episodic Other upper respiratory infections (1 source) Chronic sinusitis, unspecified; Translations: [Unspecified sinusitis (chronic)] 07-14-2024 Chronic Other upper respiratory infections (4 sources) Streptococcal sore throat; Translations: [Streptococcal pharyngitis] Episodic Otitis media and related conditions (1 source) Acute right otitis media; Translations: [Otitis media, unspecified, right ear] Episodic Thyroid disorders (1 source) Hypothyroidism, unspecified; Translations: [Hypothyroidism, unspecified] Onset: 07-19-2024 Chronic Unclassified (1 source) Acute cough; Translations: [Acute cough] Onset: 07-14-2024 Results Test Name Value Interpretation Reference Range Facility Absolute neutrophil countOrd ered By: Nguyen Davis on 01-19-2025 Neutrophils (Bld) [#/Vol] 5.3 10*3/uL 2.0-7.7 [facility] Anion gap in Serum or Plasma Ordered By: Nguyen Davis on 03-13-2025 Anion gap [Moles/Vol] 13 mmol/L 5-15 [facility] BUN/creatinine ratioOrdered By: Nguyen Davis on 01-19-2025 Urea nitrogen/Creatinine [Mass ratio] 14.1 mg/mg 10-20 [facility] Basophil percentageOrdered B y: Nguyen Davis on 01-19-2025 Basophils/100 WBC (Bld) 0.9 % 0-1 [facility] Bilirubin, totalOrdered By: Nguyen Davis on 01-19-2025 Bilirubin [Mass/Vol] 0.26 mg/dL 0.00-1.30 [facility] CBC W/Diff, Automatedon 01-07 Absolute Lymph 2.24 X10 3/uL Normal 0.83-4.51 [facility] Comment on above: Order Comment: Inter face Comments: Screening Order Date: 01/09/25 Order Info: [id number] - CBCD Comments: Screening Performed By: #### L 100.0100, L500.4050, L500.4100, [id number] #### [facility] [address] [place], [address] Absolute Neut 5.3 X10 3/uL Normal 2.0-7.7 [facility] Comment on above: Order Comment: Inter face Comments: Screening Order Date: 01/09/25 Order Info: [id number] - CBCD Comments: Screening Performed By: #### L 100.0100, L500.4050, L500.4100, [id number] #### [facility] [address] [place], [address] Basophils/100 WBC (Bld) 0.9 % Normal 0-1 [facility] Comment on above: Order Comment: Inter face Comments: Screening Order Date: 01/09/25 Order Info: [id number] - CBCD Comments: Screening Performed By: #### L 100.0100, L500.4050, L500.4100, [id number] #### [facility] [address] [place], [address] Eosinophils/100 WBC (Bld) 3.4 % Normal 0-5 [facility] Comment on above: Order Comment: Inter face Comments: Screening Order Date: 01/09/25 Order Info: [id number] - CBCD Comments: Screening Performed By: #### L 100.0100, L500.4050, L500.4100, [id number] #### [facility] [address] [place], [address] Erythrocyte distribution width (RBC) [Ratio] 12.8 % Normal 11.6-14.6 [facility] Comment on above: Order Comment: Inter face Comments: Screening Order Date: 01/09/25 Order Info: [id number] - CBCD Comments: Screening Performed By: #### L 100.0100, L500.4050, L500.4100, [id number] #### [facility] [address] [place], [address] Hematocrit (Bld) [Volume fraction] 39.6 % Normal 37-47 [facility] Comment on above: Order Comment: Inter face Comments: Screening Order Date: 01/09/25 Order Info: [id number] - CBCD Comments: Screening Performed By: #### L 100.0100, L500.4050, L500.4100, [id number] #### [facility] [address] [place], [address] Hemoglobin (Bld) [Mass/Vol] 12.8 g/dL Normal 12.0-15.0 [facility] Comment on above: Order Comment: Inter face Comments: Screening Order Date: 01/09/25 Order Info: [id number] - CBCD Comments: Screening Performed By: #### L 100.0100, L500.4050, L500.4100, [id number] #### [facility] [address] [place], [address] IG% 0.400 Normal 0.0-0.9 [facility] Comment on above: Order Comment: Inter face Comments: Screening Order Date: 01/09/25 Order Info: [id number] - CBCD Comments: Screening Result Comment: IG% - Immature Granulocytes (promyelocytes, myelocytes and metamyelocytes) > 1% indicates that a LEFT SHIFT is Present. Performed By: #### L 100.0100, L500.4050, L500.4100, [id number] #### [facility] [address] [place], [address] Lymphocytes/100 WBC (Bld) 26.5 % Normal 19-41 [facility] Comment on above: Order Comment: Inter face Comments: Screening Order Date: 01/09/25 Order Info: [id number] - CBCD Comments: Screening Performed By: #### L 100.0100, L500.4050, L500.4100, [id number] #### [facility] [address] [place], [address] MCH (RBC) [Entitic mass] 28.6 pg Normal 27.0-32.0 [facility] Comment on above: Order Comment: Inter face Comments: Screening Order Date: 01/09/25 Order Info: [id number] - CBCD Comments: Screening Performed By: #### L 100.0100, L500.4050, L500.4100, [id number] #### [facility] [address] [place], [address] MCHC (RBC) [Mass/Vol] 32.3 g/dL Normal 32-36 [facility] Comment on above: Order Comment: Inter face Comments: Screening Order Date: 01/09/25 Order Info: [id number] - CBCD Comments: Screening Performed By: #### L 100.0100, L500.4050, L500.4100, [id number] #### [facility] [address] [place], [address] MCV (RBC) [Entitic vol] 88.4 fL Normal 81-99 [facility] Comment on above: Order Comment: Inter face Comments: Screening Order Date: 01/09/25 Order Info: [id number] - CBCD Comments: Screening Performed By: #### L 100.0100, L500.4050, L500.4100, [id number] #### [facility] [address] [place], [address] Monocytes/100 WBC (Bld) 5.7 % Normal 0-10 [facility] Comment on above: Order Comment: Inter face Comments: Screening Order Date: 01/09/25 Order Info: [id number] - CBCD Comments: Screening Performed By: #### L 100.0100, L500.4050, L500.4100, [id number] #### [facility] [address] [place], [address] Neutrophils/100 WBC (Bld) 63.1 % Normal 47-70 [facility] Comment on above: Order Comment: Inter face Comments: Screening Order Date: 01/09/25 Order Info: [id number] - CBCD Comments: Screening Performed By: #### L 100.0100, L500.4050, L500.4100, [id number] #### [facility] [address] [place], [address] Nucleated RBC (Bld) [#/Vol] 0 10*3/uL Normal 0-5 [facility] Comment on above: Order Comment: Inter face Comments: Screening Order Date: 01/09/25 Order Info: [id number] - CBCD Comments: Screening Performed By: #### L 100.0100, L500.4050, L500.4100, [id number] #### [facility] [address] [place], [address] Platelet mean volume (Bld) [Entitic vol] 9.9 fL Normal 6.2-12.0 [facility] Comment on above: Order Comment: Inter face Comments: Screening Order Date: 01/09/25 Order Info: [id number] - CBCD Comments: Screening Performed By: #### L 100.0100, L500.4050, L500.4100, [id number] #### [facility] [address] [place], [address] Platelets (Bld) [#/Vol] 290 10*3/uL Normal 150-450 [facility] Comment on above: Order Comment: Inter face Comments: Screening Order Date: 01/09/25 Order Info: [id number] - CBCD Comments: Screening Performed By: #### L 100.0100, L500.4050, L500.4100, [id number] #### [facility] [address] [place], [address] RBC (Bld) [#/Vol] 4.48 10*6/uL Normal 4.2-5.4 [facility] Comment on above: Order Comment: Inter face Comments: Screening Order Date: 01/09/25 Order Info: [id number] - CBCD Comments: Screening Performed By: #### L 100.0100, L500.4050, L500.4100, [id number] #### [facility] [address] [place], [address] RDW SD 41.4 fl Normal 35.1-43.9 [facility] Comment on above: Order Comment: Inter face Comments: Screening Order Date: 01/09/25 Order Info: [id number] - CBCD Comments: Screening Performed By: #### L 100.0100, L500.4050, L500.4100, [id number] #### [facility] [address] [place], [address] WBC (Bld) [#/Vol] 8.5 10*3/uL Normal 4.4-11.0 [facility] Comment on above: Order Comment: Inter face Comments: Screening Order Date: 01/09/25 Order Info: [id number] - CBCD Comments: Screening Performed By: #### L 100.0100, L500.4050, L500.4100, [id number] #### [facility] [address] [place], [place], [address] Calculated very low density lipoprotein (VLDL) cholesterol measurementOrdered By: Nguyen Davis on 01-19-2025 VLDL Cholesterol 79 mg/dL High 5-40 [facility] Carbon dioxide, total [Moles /volume] in Central venous bloodOrdered By: Nguyen Davis on 01-19-2025 CO2 [Moles/Vol] 21.8 mmol/L 21.0-32.0 [facility] Chloride assayOrdered By: Olivia Davis on 01-19-2025 Chloride [Moles/Vol] 106 mmol/L 98-108 [facility] Comprehensive Metabolic Prof ilon 01-19-2025 Albumin [Mass/Vol] 4.2 g/dL Normal 3.5-5.0 [facility] Comment on above: Order Comment: Inter face Comments: Screening Order Date: 01/09/25 Order Info: [id number] - CMP Order Info: [id number] - LIPID Comments: Screening Order Info: [id number] - TSH Screening Performed By: #### L 100.0100, L500.4050, L500.4100, [id number] #### [facility] [address] [place], [place], [id number] Albumin/Globulin [Mass ratio] 1.5 {ratio} Normal 0.9-2.4 [facility] Comment on above: Order Comment: Inter face Comments: Screening Order Date: 01/09/25 Order Info: [id number] - CMP Order Info: [id number] - LIPID Comments: Screening Order Info: 3 - TSH Screening Performed By: #### L 100.0100, L500.4050, L500.4100, [id number] #### [facility] [address] [place], [place], [id number] ALK PHOS 77 U/L Normal 35-104 [facility] Comment on above: Order Comment: Inter face Comments: Screening Order Date: 01/09/25 Order Info: [id number] - CMP Order Info: [id number] - LIPID Comments: Screening Order Info: [id number] - TSH Screening Performed By: #### L 100.0100, L500.4050, L500.4100, [id number] #### [facility] [address] [place], [address] ALT [Catalytic activity/Vol] 16 U/L Normal <=34 [facility] Comment on above: Order Comment: Inter face Comments: Screening Order Date: 01/09/25 Order Info: [id number] - CMP Order Info: [id number] - LIPID Comments: Screening Order Info: [id number] - TSH Screening Performed By: #### L 100.0100, L500.4050, L500.4100, [id number] #### [facility] [address] [place], [address] AST [Catalytic activity/Vol] 19 U/L Normal <=31 [facility] Comment on above: Order Comment: Inter face Comments: Screening Order Date: 01/09/25 Order Info: [id number] - CMP Order Info: [id number] - LIPID Comments: Screening Order Info: [id number] - TSH Screening Performed By: #### L 100.0100, L500.4050, L500.4100, [id number] #### [facility] [address] [place], [address] Bilirubin [Mass/Vol] 0.26 mg/dL Normal 0.00-1.30 [facility] Comment on above: Order Comment: Inter face Comments: Screening Order Date: 01/09/25 Order Info: [id number] - CMP Order Info: [id number] - LIPID Comments: Screening Order Info: [id number] - TSH Screening Performed By: #### L 100.0100, L500.4050, L500.4100, [id number] #### [facility] [address] [place], [address] BUN/CRE 14.1 RATIO Normal 10-20 [facility] Comment on above: Order Comment: Inter face Comments: Screening Order Date: 01/09/25 Order Info: [id number] - CMP Order Info: [id number] - LIPID Comments: Screening Order Info: [id number] - TSH Screening Performed By: #### L 100.0100, L500.4050, L500.4100, [id number] #### [facility] [address] [place], [address] Calcium [Mass/Vol] 9.0 mg/dL Normal 7.6-11.0 [facility] Comment on above: Order Comment: Inter face Comments: Screening Order Date: 01/09/25 Order Info: [id number] - CMP Order Info: [id number] - LIPID Comments: Screening Order Info: [id number] - TSH Screening Performed By: #### L 100.0100, L500.4050, L500.4100, [id number] #### [facility] [address] [place], [address] Chloride [Moles/Vol] 106 mmol/L Normal 98-108 [facility] Comment on above: Order Comment: Inter face Comments: Screening Order Date: 01/09/25 Order Info: [id number] - CMP Order Info: [id number] - LIPID Comments: Screening Order Info: [id number] - TSH Screening Performed By: #### L 100.0100, L500.4050, L500.4100, [id number] #### [facility] [address] [place], [address] CO2 [Moles/Vol] 21.8 mmol/L Normal 21.0-32.0 [facility] Comment on above: Order Comment: Inter face Comments: Screening Order Date: 01/09/25 Order Info: [id number] - CMP Order Info: [id number] - LIPID Comments: Screening Order Info: [id number] - TSH Screening Performed By: #### L 100.0100, L500.4050, L500.4100, [id number] #### [facility] [address] [place], [address] Creatinine [Mass/Vol] 0.75 mg/dL Normal 0.70-1.20 [facility] Comment on above: Order Comment: Inter face Comments: Screening Order Date: 01/09/25 Order Info: 07 - CMP Order Info: [id number] - LIPID Comments: Screening Order Info: [id number] - TSH Screening Performed By: #### L 100.0100, L500.4050, L500.4100, [id number] #### [facility] [address] [place], [address] GAP 13 Normal 5-15 [facility] Comment on above: Order Comment: Inter face Comments: Screening Order Date: 01/09/25 Order Info: [id number] - CMP Order Info: [id number] - LIPID Comments: Screening Order Info: [id number] - TSH Screening Performed By: #### L 100.0100, L500.4050, L500.4100, [id number] #### [facility] [address] [place], [address] GFR/1.73 sq M.predicted among non-blacks MDRD (S/P/Bld) [Vol rate/Area] 95 mL/min/{1.73_m2} Normal >60 [facility] Comment on above: Order Comment: Inter face Comments: Screening Order Date: 01/09/25 Order Info: 07 - CMP Order Info: [id number] - LIPID Comments: Screening Order Info: [id number] - TSH Screening Result Comment: mL/m in/1.73m2 CKD-EPI Creatinine Equation (2020) Performed By: #### L 100.0100, L500.4050, L500.4100, [id number] #### [facility] [address] [place], [address] Globulin (S) [Mass/Vol] 2.7 g/dL Normal 2.2-4.2 [facility] Comment on above: Order Comment: Inter face Comments: Screening Order Date: 01/09/25 Order Info: [id number] - CMP Order Info: [id number] - LIPID Comments: Screening Order Info: [id number] - TSH Screening Performed By: #### L 100.0100, L500.4050, L500.4100, [id number] #### [facility] [address] [place], [address] Glucose [Mass/Vol] 83 mg/dL Normal 70-99 [facility] Comment on above: Order Comment: Inter face Comments: Screening Order Date: 01/09/25 Order Info: [id number] - CMP Order Info: [id number] - LIPID Comments: Screening Order Info: 3016-01 - TSH Screening Performed By: #### L 100.0100, L500.4050, L500.4100, L501.9520 #### [facility] [address] [place], [address] Potassium [Moles/Vol] 4.1 mmol/L Normal 3.3-5.1 [facility] Comment on above: Order Comment: Inter face Comments: Screening Order Date: 01/09/25 Order Info: 785-11 - CMP Order Info: [id number] - LIPID Comments: Screening Order Info: 3016-01 - TSH Screening Performed By: #### L 100.0100, L500.4050, L500.4100, L501.9520 #### [facility] [address] [place], [address] Sodium [Moles/Vol] 141 mmol/L Normal 133-145 [facility] Comment on above: Order Comment: Inter face Comments: Screening Order Date: 01/09/25 Order Info: 07 - CMP Order Info: [id number] - LIPID Comments: Screening Order Info: 3016-01 - TSH Screening Performed By: #### L 100.0100, L500.4050, L500.4100, L501.9520 #### [facility] [address] [place], [address] T PROT 6.9 g/dL Normal 5.9-8.4 [facility] Comment on above: Order Comment: Inter face Comments: Screening Order Date: 01/09/25 Order Info: 0786-1 - CMP Order Info: [id number] - LIPID Comments: Screening Order Info: 3 - TSH Screening Performed By: #### L 100.0100, L500.4050, L500.4100, L501.9520 #### [facility] [address] [place], [address] Urea nitrogen [Mass/Vol] 11 mg/dL Normal 4-19 [facility] Comment on above: Order Comment: Inter face Comments: Screening Order Date: 01/09/25 Order Info: [id number] - CMP Order Info: [id number] - LIPID Comments: Screening Order Info: 3016-01 - TSH Screening Performed By: #### L 100.0100, L500.4050, L500.4100, L501.9520 #### [facility] [address] [place], [address] Eosinophil percentageOrdered By: Nguyen Davis on 01-19-2025 Eosinophils/100 WBC (Bld) 3.4 % 0-5 [facility] Erythrocyte distribution wid th ratioOrdered By: Nguyen Davis on 01-19-2025 Erythrocyte distribution width (RBC) [Ratio] 12.8 % 11.6-14.6 [facility] Erythrocyte distribution wid th standard deviationOrdered By: Nguyen Davis on 01-19-2025 Erythrocyte distribution width (RBC) [Entitic vol] 41.4 fL 35.1-43.9 [facility] GFR/1.73 sq M.predicted andrey g non-blacks MDRD (S/P/Bld) [Vol rate/Area]Ordered By: Nguyen Davis on 01-19-2025 Estimated GFR (MDRD) Non-Af Amer 95 >60 [facility] Comment on above: mL/min/1.73m2 CKD-EP I Creatinine Equation (2020) Hematocrit Auto (Bld) [Volum e fraction]Ordered By: Nguyen Davis on 01-19-2025 Hematocrit (Bld) [Volume fraction] 39.6 % 37-47 [facility] Hemoglobin measurementOrdere d By: Karliyaakov Susan on 01-19-2025 Hemoglobin (Bld) [Mass/Vol] 12.8 g/dL 12.0-15.0 [facility] Immature granulocytes/100 WB C Auto (Bld)Ordered By: Nugyen Davis on 01-19-2025 Immature granulocytes/100 WBC (Bld) 0.400 % 0.0-0.9 [facility] Comment on above: IG% - Immature Granu locytes (promyelocytes, myelocytes and metamyelocytes) > 1% indicates that a LEFT SHIFT is Present. LDL calc ser/plasOrdered By: Nguyen Davis on 01-19-2025 LDL Cholesterol, Calculated 72 mg/dL [facility] Comment on above: Szzxpvxtqw=793-004 m g/dL & Higher Eggt=424 mg/dL or greater Laboratory - Chemistry and C hemistry - challengeOrdered By: Nguyen Davis on 01-19-2025 AST [Catalytic activity/Vol] 19 U/L <32 [facility] Lipid Profileon 01-19-2025 CHOL:HDL 5.34 Normal [facility] Comment on above: Order Comment: Inter face Comments: Screening Order Date: 01/09/25 Order Info: 0786-1 - CMP Order Info: [id number] - LIPID Comments: Screening Order Info: 3016-3 - TSH Performed By: #### L 100.0100, L500.4050, L500.4100, L501.9520 #### [facility] [address] [place], [address] Cholesterol [Mass/Vol] 186 mg/dL Normal <=200 [facility] Comment on above: Order Comment: Inter face Comments: Screening Order Date: 01/09/25 Order Info: 0786-1 - CMP Order Info: [id number] - LIPID Comments: Screening Order Info: 3016-3 - TSH Result Comment: Chol esterol level, Desirable <200 mg/dL Borderline high cholesterol 200-239 mg/dL High cholesterol >=240 mg/dL Recommendations of the NCEP Adult Treatment Panel for the following risk-cutoff thresholds for the [place] population. Performed By: #### L 100.0100, L500.4050, L500.4100, L501.9520 #### [facility] [address] [place], [address] Cholesterol in HDL [Mass/Vol] 35 mg/dL Low [facility] Comment on above: Order Comment: Inter face Comments: Screening Order Date: 01/09/25 Order Info: 785-11 - CMP Order Info: - LIPID Comments: Screening Order Info: 3016-01 - TSH Result Comment: Tessie onal Cholesterol Education Program (NCEP) guidelines: <40 mg/dL: Low HDL-cholesterol (major risk factor for CHD) >= 60 mg/dL: High HDL-cholesterol (negative risk factor for CHD) HDL-cholesterol is affected by a number of factors, e.g. smoking, exercise, hormones, sex and age. Performed By: #### L 100.0100, L500.4050, L500.4100, L501.9520 #### [facility] [address] [place], [address] Cholesterol in LDL [Mass/Vol] 72 mg/dL Normal [facility] Comment on above: Order Comment: Inter face Comments: Screening Order Date: 01/09/25 Order Info: 785-11 - CMP Order Info: [id number] - LIPID Comments: Screening Order Info: 3016-01 - TSH Result Comment: Bord ahwvld=695-613 mg/dL Higher Fxhp=568 mg/dL or greater Performed By: #### L 100.0100, L500.4050, L500.4100, L501.9520 #### [facility] [address] [place], [address] Cholesterol in VLDL [Mass/Vol] 79 mg/dL High 5-40 [facility] Comment on above: Order Comment: Inter face Comments: Screening Order Date: 01/09/25 Order Info: 785-11 - CMP Order Info: [id number] - LIPID Comments: Screening Order Info: 3016-01 - TSH Performed By: #### L 100.0100, L500.4050, L500.4100, L501.9520 #### [facility] [address] [place], [place], [address] Triglyceride [Mass/Vol] 396 mg/dL High [facility] Comment on above: Order Comment: Inter face Comments: Screening Order Date: 01/09/25 Order Info: 0786-1 - CMP Order Info: [id number] - LIPID Comments: Screening Order Info: 3016-3 - TSH Result Comment: The drugs N-Acetylcysteine and Metamizole may falsely depress this assay. Normal range: <150 mg/dL Borderline High: 150-199 mg/dL High: 200-499 mg/dL Very High: >500 mg/dL Performed By: #### L 100.0100, L500.4050, L500.4100, L501.9520 #### [facility] [address] [place], [address] Lymphocytes Auto (Unsp spec) [#/Vol]Ordered By: Nguyen Davis on 01-19-2025 Lymphocytes (Bld) [#/Vol] 2.24 10*3/uL 0.83-4.51 [facility] Lymphocytes/100 WBC Auto (Un sp spec)Ordered By: Nguyen Davis on 01-19-2025 Lymphocytes/100 WBC (Bld) 26.5 % 19-41 [facility] MCV (mean corpuscular volume ) determinationOrdered By: Nguyen Dvais on 01-19-2025 MCV (RBC) [Entitic vol] 88.4 fL 81-99 [facility] Mean corpuscular hemoglobin (MCH) determinationOrdered By: Nguyen Davis on 01-19-2025 MCH (RBC) [Entitic mass] 28.6 pg 27.0-32.0 [facility] Mean corpuscular hemoglobin concentration (MCHC) determinationOrdered By: Nguyen Davis on 01-19-2025 MCHC (RBC) [Mass/Vol] 32.3 g/dL 32-36 [facility] Mean platelet volume determi nationOrdered By: Nguyen Davis on 01-19-2025 Platelet mean volume (Bld) [Entitic vol] 9.9 fL 6.2-12.0 [facility] Monocyte percentageOrdered B y: Nguyen Davis on 01-19-2025 Monocytes/100 WBC (Bld) 5.7 % 0-10 [facility] Neutrophil percentageOrdered By: Nguyen Davis on 01-19-2025 Neutrophils/100 WBC (Bld) 63.1 % 47-70 [facility] Nucleated red blood cell per centageOrdered By: Nguyen Davis on 01-19-2025 Nucleated RBC/100 WBC (Bld) [Ratio] 0 % 0-5 [facility] Platelet countOrdered By: Olivia Davis on 01-19-2025 Platelets (Bld) [#/Vol] 290 10*3/uL 150-450 [facility] Potassium (Unsp spec) [Mass/ Vol]Ordered By: Nguyen Davis on 01-19-2025 Potassium [Moles/Vol] 4.1 mmol/L 3.3-5.1 [facility] RBC Auto (Bld) [#/Vol]Ordere d By: Nguyen Davis on 01-19-2025 RBC (Bld) [#/Vol] 4.48 10*6/uL 4.2-5.4 [facility] Screening total cholesterol/ high density lipoprotein (HDL) cholesterol ratioOrdered By: Nguyen Davis on 01-19-2025 Cholesterol.total/Choles terol in HDL [Mass ratio] 5.34 {ratio} [facility] Serum creatinine measurement (mass/volume)Ordered By: Nguyen Davis on 01-19-2025 Creatinine [Mass/Vol] 0.75 mg/dL 0.70-1.20 [facility] Serum globulin measurementOr dered By: Nguyen Davis on 01-19-2025 Globulin (S) [Mass/Vol] 2.7 g/dL 2.2-4.2 [facility] Serum glucose measurement (m ass/volume)Ordered By: Nguyen Davis on 01-19-2025 Glucose [Mass/Vol] 83 mg/dL 70-99 [facility] Serum or plasma alanine guillaume otransferase (ALT) measurementOrdered By: Nguyen Davis on 01-19-2025 ALT [Catalytic activity/Vol] 16 U/L <35 [facility] Serum or plasma albumin antonio urement (mass/volume)Ordered By: Nguyen Davis on 01-19-2025 Albumin [Mass/Vol] 4.2 g/dL 3.5-5.0 [facility] Serum or plasma albumin/glob ulin mass ratioOrdered By: Nguyen Davis on 01-19-2025 Albumin/Globulin [Mass ratio] 1.5 {ratio} 0.9-2.4 [facility] Serum or plasma alkaline sudheer sphatase measurementOrdered By: Nguyen Davis 01-19-2025 ALP [Catalytic activity/Vol] 77 U/L 35-104 [facility] Serum or plasma calcium antonio urement (mass/volume)Ordered By: Nguyen Davis on 01-19-2025 Calcium [Mass/Vol] 9.0 mg/dL 7.6-11.0 [facility] Serum or plasma cholesterol in HDL measurement (mass/volume)Ordered By: Nguyen Davis on 01-19-2025 Cholesterol in HDL [Mass/Vol] 35 mg/dL Low >40 [facility] Comment on above: National Cholesterol Education Program (NCEP) guidelines:<40 mg/dL: Low HDL-cholesterol (major risk factor for CHD)>= 60 mg/dL: High HDL-cholesterol (negative risk factor for CHD)HDL-cholesterol is affected by a number of factors, e.g. smoking, exercise, hormones, sex and age. Serum or plasma cholesterol measurement (mass/volume)Ordered By: Nguyen Davis on 01-19-2025 Cholesterol [Mass/Vol] 186 mg/dL <201 [facility] Comment on above: Cholesterol level, D esirable <200 mg/dLBorderline high cholesterol 200-239 mg/dLHigh cholesterol >=240 mg/dLRecommendations of the NCEP Adult Treatment Panel for the following risk-cutoff thresholds for the [place] population. Serum or plasma urea nitroge n measurement (mass/volume)Ordered By: Nguyen Davis on 01-19-2025 Urea nitrogen [Mass/Vol] 11 mg/dL 4-19 [facility] Sodium levelOrdered By: Karli Davis on 01-19-2025 Sodium [Moles/Vol] 141 mmol/L 133-145 [facility] TSH DL <= 0.005 mIU/L QnOrde red By: Nguyen Davis on 01-19-2025 Thyroid Stimulating Hormone (TSH) 2.400 uIU/mL 0.300-4.200 [facility] Thyroid Stim Hormone (TSH)on 01-19-2025 TSH 2.400 uIU/mL Normal 0.300-4.200 [facility] Comment on above: Order Comment: Inter face Comments: Screening Order Date: 01/09/25 Order Info: 0786-1 - CMP Order Info: [id number] - LIPID Comments: Screening Order Info: 3016-3 - TSH Performed By: #### L 100.0100, L500.4050, L500.4100, L501.9520 #### [facility] [address] [place], [address] Total proteinOrdered By: Maria Ines Davis on 01-19-2025 Protein [Mass/Vol] 6.9 g/dL 5.9-8.4 [facility] Triglycerides measurementOrd ered By: Nguyen Davis on 01-19-2025 Triglyceride [Mass/Vol] 396 mg/dL High <199 [facility] Comment on above: The drugs N-Acetylcy steine and Metamizole may falsely depress this assay. Normal range: <150 mg/dLBorderline High: 150-199 mg/dLHigh: 200-499 mg/dLVery High: >500 mg/dL White blood cell (WBC) count Ordered By: Nguyen Davis on 01-19-2025 WBC (Bld) [#/Vol] 8.5 10*3/uL 4.4-11.0 [facility] SCRN MAMM (CAD)W/TREVOR BILATo n 12-23-2024 SCRN MAMM (CAD)W/TREVOR BILAT [facility] Imaging Services [address] [place], [place] [id number] SCRN MAMM (CAD)W/TREVOR BILAT MR#: [id number] Acct: [id number] Name: ANNIA PACHECO Elyse Rep #: [id number] : 1970 F 54 From: Amalia Doherty MD PCP: Dr. Nguyen Davis MD Status: REG CLI Study: SCRN MAMM (CAD)W/TREVOR BILAT Date of Exam: 12/10 03/03 Exam# [id number] Ordering Dr: Fabi Marin NP, NP PROCEDURE: SCRN MAMM (CAD)W/TREVOR BILAT REASON FOR EXAM: F, Age 54 y/o, presents for annual screening mammogram. Family history of breast cancer in a paternal aunt in her 50s. TECHNIQUE: Bilateral screening digital breast tomosynthesis with 2D and 3D images. Computer aided detection. COMPARISON: 12/09/2023, 12/08/2022 FINDINGS: There are scattered areas of fibroglandular density. No suspicious masses, areas of developing architectural distortion, or suspicious calcifications. BI/SCRN MAMM (CAD)W/TREVOR BILAT IMPRESSION: There is no mammographic evidence of malignancy in either breast. BI-RADS 1: NEGATIVE. RECOMMEND ANNUAL MAMMOGRAPHIC SCREENING. Follow-up code: Routine Follow-up The patient will be notified of the results by letter. Reading Location: [facility] CC: TIM Marin; Dr. Nguyen Davis MD Wood Carving Machine Operator: Signed Normal [facility] Bark Scaler Office Visit Reporton 10-18-2024 Bark Scaler Office Visit Report [facility] [address], [address] [place] [address] OFFICE VISIT Date of Service: 10/18/24 MR#: [id number] Acct: [id number] Name: ANNIA PACHECO Rep #: [id number] : 1970 Provider: TIM ruiz Age/Sex: 54/F Location: 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 Is patient in pain?: No Allergies No Known Allergies Allergy (Verified 10/18/24 08:01) Medications ???Medication ???Instructions ???Recorded ???Confirmed ???Type metoprolol tartrate 50 mg tablet 50 mg BID 09/07/18 10/18/24 History escitalopram oxalate 10 mg tablet 10 mg PO DAILY 09/17/20 10/18/24 History (Lexapro) hydroxyzine HCl 25 mg tablet 25 mg PO QHS 09/17/20 10/18/24 History estradiol 0.025 mg/24 hr 1 patch transdermal 2XW #24 ea 10/18/24 10/18/24 Rx semiweekly transdermal patch semaglutide (weight loss) 1 mg/0.5 0.96 mg subcut QWEEK 10/18/24 10/18/24 History mL subcutaneous pen injector Is last menstrual period known: No Post menopausal: Yes Patient : No : No Control Method: [facility] Medical History LGSIL (low grade squamous intraepithelial dysplasia) Endometriosis Depression Anxiety Hypertension Surgical History H/O bilateral salpingectomy History of [facility] History of appendectomy delivery delivered Family History Father Diabetes Social History Smoking Status: Never smoker alcohol intake: never substance use type: does not use caffeine: Yes what type of physical activity do you participate in: none seatbelt use: always do you feel safe at home: Yes additional social history: Libersy History 6 Elective abortions Hx Para 4 Spontaneous abortions Hx # Term Pregnancies Ectopic pregnancies Hx # Pregnancies Multiple births # of living children Past Pregnancies Del. Date Name GA/Weeks Outcome Route Bth Weight Infant Gen Labor Lgth Anesthesia Del Locatn Provider FOB Unknown 1986 Lacie Unknown 1989 Nadya Unknown 1994 [place]okes[place] Unknown 1999 Chance HPI Encounter for routine gynecological examination Details: ANNIA PACHECO is a 54 year old who presents for annual exam. Denies concerns Last PAP: NA History of abnormal PAP: no Last mammogram: 11/2023 History of abnormal mammogram: no Colon cancer screenin Other preventative health care screenings: Susan Female Reproductive History Questions: metorrhagia: No, sexually active: Yes, dyspareunia: No and PCB: No Menopausal Treatment: Yes HRT ROS Const Constitutional: Denies fatigue, weight gain or weight loss Cardio Card: Denies chest pain Resp Resp: Denies cough or dyspnea on exertion GI GI: Denies abdominal pain, bloating, change in stool character, constipation or vomiting : Reports as per HPI; Denies difficulty voiding, pelvic pain, urinary frequency, urinary incontinence, urinary urgency, vaginal discharge or vaginal pruritus Exam Const General: cooperative, healthy appearing, no acute distress and well developed Orientation: alert, oriented to person and oriented to place HENOK Head: normal to inspection Neck Neck: normal visual inspection Thyroid: thyroid normal Lymphatic: no lymphadenopathy noted Chest Breast inspection: normal inspection of the breasts and normal inspection of the axillae Breast palpation: normal palpation of the breasts, normal palpation of the axillae and no axillary lymphadenopathy Resp Effort Inspection: normal respiratory effort GI Palpation: soft, no masses and nontender Rectal Exam: deferred External Female Exam: normal external appearance and normal appearance of the urethra Urethra: normal appearance of the urethra and normal palpation Speculum Exam - Vagina: normal appearance of the vagina and normal vaginal discharge Speculum Exam - Cervix: absent Bimanual Exam- Vagina Uterus: normal bimanual exam and uterus absent Bimanual Exam- Adnexa, other: normal adnexae, no masses, normal and non-tender Pelvic Support: normal Neuro General: patient alert and patient oriented x3 Psych Affect: normal affect Coding Level of Care Code Off vis,est,prev 40-64yrs Diagnoses Encounter for gynecological examination without abnormal finding Z01.419 Gynecological examination findings: abnormal findings ABSENT Climacteric N95.1 A (more content not included)... Normal [facility] CNOVon 07-14-2024 CNOV Office Visit (UCWSTR ) ANNIA PACHECO ([id number]) 1970 F Date Time Provider Department 07/14/24 8:45 AM BREONNA JERONIMO [facility] During your visit today, we recorded the following information about you: Temperature Pulse Respiration Blood pressure 98.2 degrees 66/minute 20/minute 137/91 Weight 77 kg Breonna Jeronimo APRN.CNP 07/14/2024 9:55 AM Signed CC: Patient presents with: Cough: Chest congestion, SOB, Wheeze, sinus pressure and pain, bilat ear pain, fatigue, low grade temp, nasal congestion, headache x 7days HPI: Annia Pacheco is a 54 year old female who presents to the office with complaint of chest congestion, head congestion, cough, nonproductive, and wheezing for 7 days. Symptoms are staying the same. Associated symptoms includes fever, wheezing, and dyspnea. Denies nausea, vomiting , and diarrhea. Treatments tried include nothing so far. with no relief of symptoms. Sick contacts: unknown. History of asthma, frequent episodes of bronchitis, chronic bronchitis, bronchiectasis or COPD: No Smoker: No Seasonal/environmenta l allergies: No The ROS is otherwise negative. The patient's pmh, medications, allergies, and past visits are reviewed. PHYSICAL EXAM: BP 137/91 Pulse 66 Temp 36.8 ?C (98.2 ?F) Resp 20 Wt 77 kg (169 lb 12.1 oz) SpO2 95% BMI 32.47 kg/m? General appearance: alert, cooperative, pleasant, in no acute distress Head: Normocephalic Eyes: EOM's intact, conjunctiva pink and moist, no icterus, sclera white, non-injected Ears: Right ear: External ear/canal- Normal, TM - clear with good landmarks. Left ear: External ear/canal- Normal, TM - clear with good landmarks Oropharynx:moist without lesions, No erythema, exudates or tonsillar hypertrophy. Heart: Negative. RRR without obvious murmur, gallop, or rubs. No ectopy. Lungs: clear to auscultation, without rales or wheeze, good air exchange PAST MEDICAL HISTORY No date: Endometriosis, site unspecified Comment: Endometriosis/resolve d 1988: Papanicolaou smear of cervix with low grade squamous intraepithelial lesion (LGSIL) Comment: Colpo- cervicitis and metaplasia only and paps since OK No date: PMH - PAST MEDICAL HISTORY OF Comment: PID No date: PMH - PAST MEDICAL HISTORY OF Comment: anxiety disorder No date: Symptomatic menopausal or female climacteric states PAST SURGICAL HISTORY No date: APPENDECTOMY No date: DELIVERY ONLY Comment: , low cervical X2 1988; 1989: COLPOSCOPY CERVIX UPPER/ADJACENT VAGINA Comment: Colposcopy and Bx showed cervcictis only No date: LAPS ABD PRTMANDOMENTUM DX W/WO SPEC BR/WA SPX Comment: Laparoscopy/LYSIS OF ADHESIONS 08/2005: TOTAL ABDOMINAL HYSTERECT W/WO RMVL TUBE OVARY Comment: Hysterectomy, RAYMOND/bso ALLERGIES Patient has no known allergies. MEDICATIONS semaglutide, weight loss, (WEGOVY) 0.5 mg/0.5 mL pen injector Inject 0.5 mg subcutaneously one time a week. escitalopram oxalate (LEXAPRO) 20 mg tablet Take 20 mg by mouth once daily. hydrOXYzine HCl (ATARAX) 25 mg tablet metoprolol tartrate 75 mg tab Take 75 mg by mouth two times a day. estradiol (VIVELLE-DOT) 0.1 mg/24 hr Apply 1 Patch as directed twice a week. ONE PER SKIN TWICE A WEEK MULTIVITAMIN TAB Take one(1) tablet daily. benzonatate (TESSALON PERLES) 100 mg capsule Take 1 capsule by mouth three times daily as needed. (Patient not taking: Reported on 07/14/2024) paroxetine 20 mg tablet Take 20 mg by mouth once daily. (Patient not taking: Reported on 07/14/2024) calcium carbonate(CALTRATE 600 600 MG (1,500 MG) TAB) Take one(1) tablet twice daily. (Patient not taking: Reported on 07/14/2024) FAMILY HISTORY Problem Relation Age of Onset Cancer Mother SKIN Stroke Father Coronary Artery Disease Father Diabetes Father Diabetes Paternal Grandmother Diabetes Maternal Grandfather SKIN CANCER Heart Paternal Grandfather STROKE Breast Cancer Paternal Aunt Cancer Paternal Aunt Uterine Cancer Social History Tobacco Use Smoking status: Never Smokeless tobacco: Never Substance Use Topics Alcohol use: No Drug use: No ASSESSMENT/PLAN: 1. Acute cough - ICD9: 786.2, ICD10: R05.1 (primary diagnosis) - XR CHEST 2V FRONTAL/LAT * * * * Physician Interpretation * * * * EXAMINATION: CHEST RADIOGRAPH (2 VIEW FRONTAL AND LATERAL) CLINICAL HISTORY: Acute cough MQ: XC2_6 EXAM DATE/TIME: 07/14/2024 9:19 AM COMPARISON: No relevant prior studies available. RESULT: Lines, tubes, and devices: None. Lungs and pleura: No consolidation. No lung mass. No pleural effusion. No pneumothorax. Cardiomediastinal silhouette: Normal cardiomediastinal silhouette. Bones and soft tissues: Unremarkable. IMPRESSION IMPRESSION: No acute radiographic abnormality. Wood Carving Machine Operator: [facility] Transcribe Date/Time: Jul 14 2024 9:21A Dictated by : JAMES BURNETT MD 2. Rhinosinusitis (more content not included)... Normal [facility] XR CHEST 2V FRONTAL/LATon XR CHEST 2V FRONTAL/LAT * * *Final Repor t* * * DATE OF EXAM: Jul 14 2024 9:19AM WOX [id number] - XR CHEST 2V FRONTAL/LAT / PROCEDURE REASON: Acute cough * * * * Physician Interpretation * * * * EXAMINATION: CHEST RADIOGRAPH (2 VIEW FRONTAL and LATERAL) CLINICAL HISTORY: Acute cough MQ: XC2_6 EXAM DATE/TIME: 07/14/2024 9:19 AM COMPARISON: No relevant prior studies available. RESULT: Lines, tubes, and devices: None. Lungs and pleura: No consolidation. No lung mass. No pleural effusion. No pneumothorax. Cardiomediastinal silhouette: Normal cardiomediastinal silhouette. Bones and soft tissues: Unremarkable. IMPRESSION: No acute radiographic abnormality. Wood Carving Machine Operator: [facility] Transcribe Date/Time: Jul 14 2024 9:21A Dictated by : JAMES BURNETT MD This examination was interpreted and the report reviewed and electronically signed by: JAMES BURNETT MD on Jul 14 2024 9:22AM EST [id number] N Normal [facility] XR Chest PA and Lateralon IMPRESSION: No acute radiographic abnormality. Wood Carving Machine Operator: [facility] Transcribe Date/Time: Jul 14 2024 9:21A Dictated by : JAMES BURNETT MD This examination was interpreted and the report reviewed and electronically signed by: JAMES BURNETT MD on Jul 14 2024 9:22AM EST DIVISION OF RADIOLOGY * * *Final Report* * * DATE OF EXAM: Jul 14 2024 9:19AM WOX [id number] - XR CHEST 2V FRONTAL/LAT / PROCEDURE REASON: Acute cough * * * * Physician Interpretation * * * * EXAMINATION: CHEST RADIOGRAPH (2 VIEW FRONTAL & LATERAL) CLINICAL HISTORY: Acute cough MQ: XC2_6 EXAM DATE/TIME: 07/14/2024 9:19 AM COMPARISON: No relevant prior studies available. RESULT: Lines, tubes, and devices: None. Lungs and pleura: No consolidation. No lung mass. No pleural effusion. No pneumothorax. Cardiomediastinal silhouette: Normal cardiomediastinal silhouette. Bones and soft tissues: Unremarkable. DIVISION OF RADIOLOGY Provider, [facility] - 07/14/2024 * * *Final Report* * * DATE OF EXAM: Jul 14 2024 9:19AM WOX [id number] - XR CHEST 2V FRONTAL/LAT / PROCEDURE REASON: Acute cough * * * * Physician Interpretation * * * * EXAMINATION: CHEST RADIOGRAPH (2 VIEW FRONTAL & LATERAL) CLINICAL HISTORY: Acute cough MQ: XC2_6 EXAM DATE/TIME: 07/14/2024 9:19 AM COMPARISON: No relevant prior studies available. RESULT: Lines, tubes, and devices: None. Lungs and pleura: No consolidation. No lung mass. No pleural effusion. No pneumothorax. Cardiomediastinal silhouette: Normal cardiomediastinal silhouette. Bones and soft tissues: Unremarkable. IMPRESSION IMPRESSION: No acute radiographic abnormality. Wood Carving Machine Operator: [facility] Transcribe Date/Time: Jul 14 2024 9:21A Dictated by : JAMES BURNETT MD This examination was interpreted and the report reviewed and electronically signed by: JAMES BURNETT MD on Jul 14 2024 9:22AM EST [facility] Radiology Study observation (narrative) Leonid gay [facility] XR Chest PA and LateralOrder ed By: [facility] Provider on 07-14-[address] [facility] Thyroid Stim Hormone (TSH)on 06-23-2024 TSH 2.270 uIU/mL Normal 0.358-3.740 [facility] Comment on above: Order Comment: Order Date: 06/23/24 Order Info: [id number] - TSH Performed By: #### L [id number] #### [facility] Laboratory [facility] [place], [address] Basophil percentageOrdered B y: Jessica Hill on 12-04-2023 Cholesterol [Mass/Vol] 193 mg/dL <200 [facility] Comment on above: <200 mg/dL Desirable 200-240 mg/dL Borderline >240 mg/dL High Risk Triglyceride [Mass/Vol] 360 mg/dL <199 [facility] Comment on above: The drugs N-Acetylcy steine and Metamizole may falsely depress this assay.Serum Triglycerides Reference Interval Normal <150 mg/dL Borderline high 150 - 199 mg/dL High 200 - 499 mg/dL Very High > or = 500 mg/dL High density lipoprotein (HD L) measurementOrdered By: Jessica Hill on 12-04-2023 Cholesterol in HDL (Body fld) [Mass/Vol] 35 mg/dL >40 [facility] Comment on above: The drugs N-Acetylcy steine and Metamizole may falsely depress this assay. Reference Range HDL <40 mg/dL Low HDL Cholesterol HDL >or= 60 mg/dL High HDL Cholesterol Low density lipoprotein (LDL ) cholesterol measurementOrdered By: Jessica Hill on 12-04-2023 Cholesterol in LDL (Body fld) [Moles/Vol] 86 mg/dL 0-130 [facility] Very low density lipoprotein (VLDL) cholesterol measurementOrdered By: Jessica Hill on 12-04-2023 Cholesterol in VLDL Calc [Moles/Vol] 72 mg/dL 5-40 [facility] Basophil percentageOrdered B y: Jessica Hill on 11-23-2023 Bilirubin [Mass/Vol] 0.20 mg/dL 0.20-1.00 [facility] Comment on above: For patients on eltr ombopag therapy, use of Dimension Temple TBIL is not recommended. Chloride [Moles/Vol] 110 mmol/L 98-107 [facility] Cholesterol [Mass/Vol] 193 mg/dL <200 [facility] Comment on above: <200 mg/dL Desirable 200-240 mg/dL Borderline >240 mg/dL High Risk Glucose [Mass/Vol] 135 mg/dL 74-106 [facility] Comment on above: Fasting Glucose resu lt greater than or equal to 126 mg/dL suggests DIABETES MELLITUS per A.D.A. criteria. Potassium [Moles/Vol] 3.8 mmol/L 3.5-5.1 [facility] Protein [Mass/Vol] 7.1 g/dL 6.4-8.2 [facility] Sodium [Moles/Vol] 143 mmol/L 136-145 [facility] Triglyceride [Mass/Vol] 493 mg/dL <199 [facility] Comment on above: The drugs N-Acetylcy steine and Metamizole may falsely depress this assay. TRIGLYCERIDE IS GREATER THAN 400 mg/dL. LDL RESULT IS INVALID AND WILL NOT BE REPORTED.Serum Triglycerides Reference Interval Normal <150 mg/dL Borderline high 150 - 199 mg/dL High 200 - 499 mg/dL Very High > or = 500 mg/dL Laboratory - Chemistry and C hemistry - challengeOrdered By: Jessica Hill on 11-23-2023 ALP [Catalytic activity/Vol] 70 U/L 45-117 [facility] ALT [Catalytic activity/Vol] 34 U/L 13-56 [facility] CO2 [Moles/Vol] 27.0 mmol/L 21.0-32.0 [facility] Free T4 [Mass/Vol] 0.76 ng/dL 0.76-1.46 [facility] Globulin (S) [Mass/Vol] 3.4 g/dL 2.2-4.2 [facility] Urea nitrogen/Creatinine [Mass ratio] 16.2 mg/mg 10-20 [facility] No Panel InformationOrdered By: Jessica Hill on 11-23-2023 Estimated GFR (MDRD) Amer 105 mL/min >60 [facility] Comment on above: GFR Calc Estimated GFR (MDRD) Non-Af Amer 87 mL/min >60 [facility] Comment on above: Non- GFR Calc Thyroid Stimulating Hormone (TSH) 2.26 uIU/mL 0.358-3.74 [facility] Urine Microalbumin/Creatinine Ratio 12.9 mg/g CRE <30 [facility] Serum or plasma albumin antonio urement (mass/volume)Ordered By: Jessica Hill on 11-23-2023 Albumin [Mass/Vol] 3.7 g/dL 3.2-5.0 [facility] Serum or plasma albumin/glob ulin mass ratioOrdered By: Jessica Hill on 11-23-2023 Albumin/Globulin [Mass ratio] 1.1 {ratio} 0.9-2.4 [facility] Serum or plasma calcium antonio urement (mass/volume)Ordered By: Jessica Hill on 11-23-2023 Calcium [Mass/Vol] 8.8 mg/dL 8.5-10.1 [facility] Serum or plasma cholesterol in HDL measurement (mass/volume)Ordered By: Jessica Hill on 11-23-2023 Cholesterol in HDL [Mass/Vol] 29 mg/dL >40 [facility] Comment on above: The drugs N-Acetylcy steine and Metamizole may falsely depress this assay. Reference Range HDL <40 mg/dL Low HDL Cholesterol HDL >or= 60 mg/dL High HDL Cholesterol Serum or plasma cholesterol in VLDL measurement (mass/volume)Ordered By: Jessica Hill on 11-23-2023 Cholesterol in VLDL [Mass/Vol] [facility] Comment on above: Test not performed Serum or plasma creatinine m easurement (mass/volume)Ordered By: Jessica Hill on 11-23-2023 Creatinine [Mass/Vol] 0.74 mg/dL 0.55-1.02 [facility] Comment on above: The validity of the calculated GFR & GFRAA in patients over 70 years has not been determined. Clinical correlation is essential. Serum or plasma low density lipoprotein (LDL) cholesterol measurement (mass/volume)Ordered By: Jessica Hill on 11-23-2023 Cholesterol in LDL [Mass/Vol] [facility] Comment on above: Test not performed Serum or plasma urea nitroge n measurement (mass/volume)Ordered By: Jessica Hill on 11-23-2023 Urea nitrogen [Mass/Vol] 12 mg/dL 7-18 [facility] Thin prep Papanicolaou smear with manual screeningOrdered By: Jessica Hill on 11-23-2023 Thin prep Papanicolaou smear with manual screening 30 U/L 15-37 [facility] Thin prep Papanicolaou smear with manual screening 6 5-15 [facility] Thin prep Papanicolaou smear with manual screening 15.0 mg/L NO RANGE EST. [facility] Urine creatinine measurement (mass/volume)Ordered By: Jessica Hill on 11-23-2023 Creatinine (U) [Mass/Vol] 116.00 mg/dL NO RANGE EST. [facility] Whole blood hemoglobin A1c/t otal hemoglobin ratio (mass fraction)Ordered By: Jessica Hill on 11-23-2023 HbA1c (Bld) [Mass fraction] 6.3 % 3.8-5.6 [facility] Comment on above: Normal < 5.7 % Predi abetic 5.7 - 6.4 % Diabetic >or= 6.5 % Please note range changes. STREP A MOLECULAR (POC)on Procedural Control Valid [facility] Strep A (POCT) Positive Abnormal Negative [facility] No Panel InformationOrdered By: Jessica Hill on 11-24-2022 Thyroid Stimulating Hormone (TSH) 2.16 uIU/mL 0.358-3.74 [facility] Whole blood hemoglobin A1c/t otal hemoglobin ratio (mass fraction)Ordered By: Jessica Hill on 11-24-2022 HbA1c (Bld) [Mass fraction] 6.1 % 3.8-5.6 [facility] Comment on above: Normal < 5.7 % Predi abetic 5.7 - 6.4 % Diabetic >or= 6.5 % Please note range changes. STREP A MOLECULAR (POC)on Procedural Control Valid [facility] Strep A (POCT) Positive Abnormal Negative [facility] Basophil percentageon 2021 Bilirubin [Mass/Vol] 0.40 mg/dL 0.20-1.00 [facility] Work Phone: Comment on above: For patients on eltr ombopag therapy, use of Dimension [place] TBIL is not recommended. Chloride [Moles/Vol] 106 mmol/L 98-107 [facility] Work Phone: Cholesterol [Mass/Vol] 177 mg/dL <200 [facility] Work Phone: Comment on above: <200 mg/dL Desirable 200-240 mg/dL Borderline >240 mg/dL High Risk Glucose [Mass/Vol] 129 mg/dL 74-106 [facility] Work Phone: Comment on above: Fasting Glucose resu lt greater than or equal to 126 mg/dL suggests DIABETES MELLITUS per A.D.A. criteria. Potassium [Moles/Vol] 3.7 mmol/L 3.5-5.1 [facility] Work Phone: [phone] Protein [Mass/Vol] 7.3 g/dL 6.4-8.2 [facility] Work Phone: [phone] Sodium [Moles/Vol] 139 mmol/L 136-145 [facility] Work Phone: [phone] Triglyceride [Mass/Vol] 369 mg/dL <199 [facility] Work Phone: [phone] Comment on above: The drugs N-Acetylcy steine and Metamizole may falsely depress this assay.Serum Triglycerides Reference Interval Normal <150 mg/dL Borderline high 150 - 199 mg/dL High 200 - 499 mg/dL Very High > or = 500 mg/dL Laboratory - Chemistry and C hemistry - challengeon 05-16-2022 ALP [Catalytic activity/Vol] 58 U/L 45-117 [facility] Work Phone: ALT [Catalytic activity/Vol] 37 U/L 13-56 [facility] Work Phone: [phone] CO2 [Moles/Vol] 26.0 mmol/L 21.0-32.0 [facility] Work Phone: [phone] Globulin (S) [Mass/Vol] 3.7 g/dL 2.2-4.2 [facility] Work Phone: [phone] Urea nitrogen/Creatinine [Mass ratio] 16.4 mg/mg 10-20 [facility] Work Phone: No Panel Informationon 05-16 Estimated GFR (MDRD) Amer 98 mL/min >60 [facility] Work Phone: Comment on above: GFR Calc Estimated GFR (MDRD) Non-Af Amer 81 mL/min >60 [facility] Work Phone: [phone] Comment on above: Non- GFR Calc Thyroid Stimulating Hormone (TSH) 3.98 uIU/mL 0.358-3.74 [facility] Work Phone: Serum or plasma albumin antonio urement (mass/volume)on 05-16-2022 Albumin [Mass/Vol] 3.6 g/dL 3.2-5.0 [facility] Work Phone: Serum or plasma albumin/glob ulin mass ratioon 05-16-2022 Albumin/Globulin [Mass ratio] 1.0 {ratio} 0.9-2.4 [facility] Work Phone: Serum or plasma calcium antonio urement (mass/volume)on 05-16-2022 Calcium [Mass/Vol] 8.7 mg/dL 8.5-10.1 [facility] Work Phone: Serum or plasma cholesterol in HDL measurement (mass/volume)on 05-16-2022 Cholesterol in HDL [Mass/Vol] 37 mg/dL >40 [facility] Work Phone: Comment on above: The drugs N-Acetylcy steine and Metamizole may falsely depress this assay. Reference Range HDL <40 mg/dL Low HDL Cholesterol HDL >or= 60 mg/dL High HDL Cholesterol Serum or plasma cholesterol in VLDL measurement (mass/volume)on 05-16-2022 Cholesterol in VLDL [Mass/Vol] 74 mg/dL 5-40 [facility] Work Phone: Serum or plasma creatinine m easurement (mass/volume)on 05-16-2022 Creatinine [Mass/Vol] 0.79 mg/dL 0.55-1.02 [facility] Work Phone: Comment on above: The validity of the calculated GFR & GFRAA in patients over 70 years has not been determined. Clinical correlation is essential. Serum or plasma low density lipoprotein (LDL) cholesterol measurement (mass/volume)on 05-16-2022 Cholesterol in LDL [Mass/Vol] 66 mg/dL 0-130 [facility] Work Phone: Serum or plasma urea nitroge n measurement (mass/volume)on 05-16-2022 Urea nitrogen [Mass/Vol] 13 mg/dL 7-18 [facility] Work Phone: Thin prep Papanicolaou smear with manual screeningon 05-16-2022 Thin prep Papanicolaou smear with manual screening 30 U/L 15-37 [facility] Work Phone: Thin prep Papanicolaou smear with manual screening 7 5-15 [facility] Work Phone: Whole blood hemoglobin A1c/t otal hemoglobin ratio (mass fraction)on 05-16-2022 HbA1c (Bld) [Mass fraction] 6.1 % 3.8-5.6 [facility] Work Phone: Comment on above: Normal < 5.7 % Predi abetic 5.7 - 6.4 % Diabetic >or= 6.5 % Please note range changes. Vital Signs Date Time Vital Sign Value Performing Clinician Facility 10-18-2024 08:06-0500 Body height 154.94 cm Nguyen Davis MD Work Phone: [facility] 10-18-2024 08:02-0500 Body mass index (BMI) [Ratio] 29.7 kg/m2 Nguyen Davis MD Work Phone: [facility] 10-18-2024 08:02-0500 Body weight 71.32 kg Nguyen Davis MD Work Phone: [facility] 10-18-2024 08:02-0500 Diastolic blood pressure 84 mm[Hg] Nguyen Davis MD Work Phone: [facility] 10-18-2024 08:02-0500 Systolic blood pressure 126 mm[Hg] Nguyen Davis MD Work Phone: [facility] 07-14-2024 08:53-0400 Body mass index (BMI) [Ratio] 32.47 kg/m2 Breonna Jeronimo APRN.TOY MAKER Work Phone: [facility] 07-14-2024 08:53-0400 Body temperature 98.2 [degF] Breonna Jeronimo APRN.TOY MAKER Work Phone: [facility] 07-14-2024 08:53-0400 Body weight 77 kg Breonna Jeronimo APRN.TOY MAKER Work Phone: [facility] 07-14-2024 08:53-0400 Diastolic blood pressure 91 mm[Hg] Breonna Jeronimo APRN.TOY MAKER Work Phone: [facility] 07-14-2024 08:53-0400 Heart rate 66 /min Breonna Jeronimo APRN.TOY MAKER Work Phone: [facility] 07-14-2024 08:53-0400 Respiratory rate 20 /min Breonna Jeronimo APRN.TOY MAKER Work Phone: [facility] 07-14-2024 08:53-0400 SaO2% (BldA) [Mass fraction] 95 % Breonna Jeronimo APRN.TOY MAKER Work Phone: [facility] 07-14-2024 08:53-0400 Systolic blood pressure 137 mm[Hg] Breonna Jeronimo APRN.TOY MAKER Work Phone: [facility] 10-16-2023 11:23-0500 Body height 154.94 cm DO Jessica Liz Work Phone: [facility] 10-16-2023 11:21-0500 Body mass index (BMI) [Ratio] 33.8 kg/m2 DO Jessica Liz Work Phone: [facility] 10-16-2023 11:21-0500 Body weight 81.24 kg DO Jessica Liz Work Phone: [facility] 10-16-2023 11:21-0500 Diastolic blood pressure 88 mm[Hg] DO Jessica Liz Work Phone: [facility] 10-16-2023 11:21-0500 Systolic blood pressure 152 mm[Hg] DO Jessica Liz Work Phone: [facility] 02-19-2023 14:46-0400 Body temperature 99.39 [degF] Ministerio Vasques MD Work Phone: [facility] 02-19-2023 14:46-0400 Body weight 82.28 kg Ministerio Vasques MD Work Phone: [facility] 02-19-2023 14:46-0400 Diastolic blood pressure 86 mm[Hg] Ministerio Vasques MD Work Phone: [facility] 02-19-2023 14:46-0400 Heart rate 70 /min Ministerio Vasques MD Work Phone: [facility] 02-19-2023 14:46-0400 Respiratory rate 18 /min Ministerio Vasques MD Work Phone: [facility] 02-19-2023 14:46-0400 SaO2% (BldA) [Mass fraction] 99 % Ministerio Vasques MD Work Phone: [facility] 02-19-2023 14:46-0400 Systolic blood pressure 138 mm[Hg] Ministerio Vasques MD Work Phone: [facility] 01-09-2023 09:12-0500 Body temperature 98.29 [degF] Krislyn Aberegg PA Work Phone: [facility] 01-09-2023 09:12-0500 Body weight 81.74 kg Krislyn Aberegg PA Work Phone: [facility] 01-09-2023 09:12-0500 Diastolic blood pressure 94 mm[Hg] Krislyn Aberegg PA Work Phone: [facility] 01-09-2023 09:12-0500 Heart rate 67 /min Krislyn Aberegg PA Work Phone: [facility] 01-09-2023 09:12-0500 Respiratory rate 20 /min Krislyn Aberegg PA Work Phone: [facility] 01-09-2023 09:12-0500 SaO2% (BldA) [Mass fraction] 97 % Krislyn Aberegg PA Work Phone: [facility] 01-09-2023 09:12-0500 Systolic blood pressure 150 mm[Hg] Krislyn Aberegg PA Work Phone: [facility] 10-28-2022 13:42-0500 Body temperature 97.9 [degF] Queenie Alejandra AUTH SPECIALIST.TOY MAKER Work Phone: [facility] 10-28-2022 13:42-0500 Body weight 82.28 kg Queenie Alejandra AUTH SPECIALIST.TOY MAKER Work Phone: [facility] 10-28-2022 13:42-0500 Diastolic blood pressure 84 mm[Hg] Queenie Alejandra AUTH SPECIALIST.TOY MAKER Work Phone: [facility] 10-28-2022 13:42-0500 Heart rate 56 /min Queenie Alejandra AUTH SPECIALIST.TOY MAKER Work Phone: [facility] 10-28-2022 13:42-0500 Respiratory rate 16 /min Queenie Alejandra AUTH SPECIALIST.TOY MAKER Work Phone: [facility] 10-28-2022 13:42-0500 SaO2% (BldA) [Mass fraction] 98 % Queenie Alejandra AUTH SPECIALIST.TOY MAKER Work Phone: [facility] 10-28-2022 13:42-0500 Systolic blood pressure 152 mm[Hg] Queenie Alejandra AUTH SPECIALIST.TOY MAKER Work Phone: [facility] 10-15-2022 08:46-0500 Body height 154.94 cm DO Jessica Hill Work Phone: [facility] 10-15-2022 08:46-0500 Body mass index (BMI) [Ratio] 34.2 kg/m2 DO Jessica Hill Work Phone: [facility] 10-15-2022 08:46-0500 Body weight 82.32 kg DO Jessica Hill Work Phone: [facility] 10-15-2022 08:46-0500 Diastolic blood pressure 85 mm[Hg] DO Jessica Hill Work Phone: [facility] 10-15-2022 08:46-0500 Systolic blood pressure 147 mm[Hg] DO Jessica Hill Work Phone: [facility] Encounters Encounter Date Encounter Type Care Provider Facility Start: 01-19-2025 End: 01-19-2025 ambulatory Nguyen Davis MD Work Phone: [facility] Work Phone: Start: 01-19-2025 End: 01-19-[address] Nguyen Davis MD -Laboratory, [facility] Start: 01-19-2025 End: 01-19-[address] [facility] Facility:[facility] Start: 12-23-2024 End: 12-23-2024 Patient encounter procedure Fabi Marin NP-[facility] -[facility] Work Phone: Start: 12-23-2024 End: 12-23-[address] [facility] Facility:[facility] Start: 10-18-2024 End: 10-18-2024 Patient encounter procedure Fabi DUMONT -[facility] Work Phone: Start: 10-18-2024 End: 10-18-2024 Patient encounter status Fabi Marin NP-[facility] Start: 10-18-2024 End: 10-18-[address] [facility] Start: 07-14-2024 End: 07-14-2024 Subsequent hospital visit by physician Xr [facility] Work Phone: Radiology Comment on above: Acute cough [R05.1] Start: 07-14-2024 End: 07-14-2024 ambulatory JESSICA HILL Facility:[facility] Start: 07-14-2024 End: 07-14-2024 Patient encounter procedure Breonna Jeronimo APRN.CNP Work Phone: [facility] Comment on above: Acute cough (Primary Dx); Rhinosinusitis Start: 06-23-2024 End: 06-23-[address] [facility] [address] Start: 12-04-2023 End: 12-04-2023 ambulatory DO Jessica Hill Work Phone: [facility] Work Phone: Start: 12-04-2023 End: 12-04-2023 Patient encounter procedure DO Jessica Hill Work Phone: [facility] Work Phone: Start: 11-23-2023 End: 11-23-2023 ambulatory DO Jessica Hill Work Phone: [facility] Work Phone: Start: 11-23-2023 End: 11-23-2023 Patient encounter procedure DO Jessica Hill Work Phone: [facility] Work Phone: Start: 10-16-2023 End: 10-16-2023 Patient encounter procedure DO Jessica Hill Work Phone: [facility] Work Phone: Start: 02-19-2023 End: 02-19-2023 Patient encounter procedure Ministerio Vasques MD Work Phone: [facility] Comment on above: Streptococcal pharyn gitis (Primary Dx); Sore throat; Cough, unspecified type Start: 01-09-2023 End: 01-09-2023 Patient encounter procedure Selma CAIN Work Phone: [facility] Comment on above: Acute otitis media, right (Primary Dx); URI, acute Start: 12-08-2022 End: 12-08-2022 ambulatory DO Jessica Hill Work Phone: [facility] Work Phone: Start: 12-08-2022 End: 12-08-2022 Patient encounter procedure DO Jessica Hill Work Phone: [facility]-Outpatient Breast Imaging Start: 11-24-2022 End: 11-24-2022 ambulatory DO Jessica Hill Work Phone: [facility] Work Phone: Start: 11-24-2022 End: 11-24-2022 Patient encounter procedure DO Jessica Hill Work Phone: [facility] Start: 10-28-2022 End: 10-28-2022 Patient encounter procedure Queenie Alejandra AUTH SPECIALIST.TOY MAKER Work Phone: [facility] Comment on above: Strep pharyngitis (P rimary Dx) Start: 10-15-2022 End: 10-15-2022 Patient encounter procedure DO Jessica Hill Work Phone: [facility] Start: 05-16-2022 End: 05-16-2022 Patient encounter procedure [facility] Procedures Date Procedure Procedure Detail Performing Clinician Start: 12-23-2024 Screening mammography C timmy Davis MD Work Phone: Start: 07-14-2024 Radiologic exam ches t 2 views Breonna Jeronimo APRN.TOY MAKER Work Phone: Start: 02-19-2023 STREP A MOLECULAR (POC) Conrad Frederick APRN.TOY MAKER Work Phone: Start: 12-08-2022 Screening mammography D O Jessica Gaonger Work Phone: Start: 10-28-2022 STREP A MOLECULAR (POC) Sofie Mcgrath APRN.TOY MAKER Work Phone: Start: 10-22-2016 Mammography Queenie ley AUTH SPECIALIST.TOY MAKER Work Phone: Start: 09-19-2004 Lipid 1996 panel - S rober or Plasma Breonna Jeronimo APRN.TOY MAKER Work Phone: Plan of Treatment Date Care Activity Detail Author Start: 04-21-2025 Urine microalbumin profile DTaP,Tdap,Td Vaccine (2 - Td or Tdap) [facility] Start: 07-10-2024 Covid-19 Vaccine (2022-24 season) Covid-19 Vaccine ( season) [facility] Start: 07-10-2024 Influenza [facility] Start: 07-10-2023 Influenza vaccination INFLUENZA (Season Ended) [facility] Start: 11-09-2022 DEPRESSION ASSESSMENT DEPRESSION ASSESSMENT [facility] Start: 07-10-2022 Influenza vaccination INFLUENZA (#1) [facility] Start: 11-09-2021 DEPRESSION ASSESSMENT DEPRESSION ASSESSMENT [facility] Start: 2020 SHINGRIX VACCINE (1 of 2) SHINGRIX VACCINE (1 of 2) [facility] Start: 10-22-2017 Mammography MAMMOGRAM [facility] Start: 10-22-2017 Screening for malignant neoplasm of breast Mammogram Screening [facility] Start: 2015 COLOGUARD (FIT-DNA) COLOGUARD (FIT-DNA) [facility] Start: 2015 Colonoscopy COLONOSCOPY [facility] Start: 2015 COLORECTAL CANCER SCREENING COLORECTAL CANCER SCREENING [facility] Start: [address] COLONOGRAPHY [facility] Start: 2015 DIABETES SCREEN DIABETES SCREEN [facility] Start: 2015 Diabetes Screening Diabetes Screening [facility] Start: 2015 FECAL OCCULT BLOOD FECAL OCCULT BLOOD [facility] Start: 2015 Lipid panel Lipid Screening [facility] Start: 2015 LIPID SCREEN LIPID SCREEN [facility] Start: 2015 Screening for malignant neoplasm of colon [facility] Start: 2015 SIGMOIDOSCOPY SIGMOIDOSCOPY [facility] Start: 1989 Hepatitis B Vaccine (1 of 3 - 19+ 3-dose series) Hepatitis B Vaccine (1 of 3 - 19+ 3-dose series) [facility] Start: 1989 Urine microalbumin profile DTAP,TDAP,TD (1 - Tdap) [facility] Start: 1988 Anxiety Screening Anxiety Screening [facility] Start: 1988 Depression Screening Depression Screening [facility] Start: 1988 HEPATITIS C SCREENING HEPATITIS C SCREENING [facility] Start: 1988 Hepatitis C screening Hepatitis C Screening [facility] Start: 1988 HIV SCREENING HIV SCREENING [facility] Start: 1988 HIV screening HIV Screening [facility] Start: 1970 COVID-19 VACCINE (#1) COVID-19 VACCINE (#1) [facility] Start: 1970 HEPATITIS B (1 of 3 - 3-dose series) HEPATITIS B (1 of 3 - 3-dose series) [facility] MG Breast - bilatera l Screening [facility] MG Breast - bilatera l Screening [facility] Immunizations Immunization Date Immunization Notes Care Provider Pablito munroe 07-02-2017 influenza virus vaccine, unspecified formulation Breonna Jeronimo APRN.[facility] Work Phone: [facility] 04-21-2015 tetanus toxoid, redu boyd diphtheria toxoid, and acellular pertussis vaccine, adsorbed [facility] Payers Date Payer Category Payer Self-pay [id number] 2018 Unknown [employer] BLUE CARD PPO OOS [id number] 2018-Present [phone] [id number] [place] [address] PPO [id number] 2018 Unknown [id number] Private Health Insurance [facility] [id number] Unknown [id number] Unknown [id number] Unknown [id number] Unknown [id number] Social History Date Type Detail Facility Start: 10-10-2021 End: 10-16-2023 Tobacco smoking status NHIS Unknown if ever smoked [facility] Start: 10-12-2020 Non-smoker [facility] Start: 1970 Sex Assigned At Female W [facility] Start: 10-28-2022 End: 10-16-2023 Tobacco smoking status NHIS Never smoked tobacco [facility] Start: 10-28-2022 Tobacco use and exposure Smokeless tobacco non-user [facility] Start: 10-28-2022 End: 07-14-2024 Alcohol intake Current non-drinker of alcohol (finding) [facility] Start: 1970 Sex Assigned At Not on file C [facility] Start: 04-18-2021 End: 07-14-2024 History of Social function [facility] Start: 04-18-2021 End: 07-14-2024 Tobacco use panel [facility] National Score (1-100), lower number is lower risk Not on file [facility] Start: 01-30-2025 Sex Female (finding) [facility] Clinical Notes 05-06-2010 to 10-18-2024 Note Date & Type Note Facility 10-18-2024 Evaluation note Diagnosis Onset Date Resolution Climacteric acute October 7:56am Encounter for routine gynecological examination noneactive October 18 7:56am [facility] Work Phone: 1(764) 831-932909-05-2024 History of Present illness Narrative* Mandi Dupree RT(R) - 07/14/2024 9:10 AM EDT Radiology Service Progress Note PATIENT NAME: Annia Pacheco DATE OF SERVICE: July 14, 2024 TIME: 9:14 AM PATIENT IDENTITY VERIFICATION COMPLETED USING TWO (2) IDENTIFIERS: Name and Date of confirmedby patient verbally. FALL SCREENING: Has the patient had 2 falls in the last year or 1 fall with injury or currently using an Ambulatory Assistive Device (Walker, Cane, Wheelchair, Crutches, etc.)? No PATIENT GENDER DATA: Female. status: : No status: NO. PATIENT RELEVANT IMPLANT DATA REVIEWED: Not Applicable PATIENT PRESENTS WITH AN IMPLANTABLE OR ATTACHED INDUCTOR TESTER: No RADIOLOGY DEPARTMENT: General X-ray: Exam(s) Completed: Chest X-Ray PERIPHERAL IV DATA: Not applicable SIGNED BY: RT Cathi(R) July 14, 2024 9:14 AM documented in this encounter[facility]24 NoteHNO ID: [id number] Author: MANDI DUPREE RT(R) Service: Radiology Author Type: Technologist Type: Progress Notes Filed: 07/14/2024 09:19 Note Text: Radiology Service Progress Note PATIENT NAME: Annia Pacheco DATE OF SERVICE: July 14, 2024 TIME: 9:14 AM PATIENT IDENTITY VERIFICATION COMPLETED USING TWO (2) IDENTIFIERS: Name and Date of confirmed by patient verbally. FALL SCREENING: Has the patient had 2 falls in the last year or 1 fall with injury or currently using an Ambulatory Assistive Device (Walker, Cane, Wheelchair, Crutches, etc.)? No PATIENT GENDER DATA: Female. status: : No status: NO. PATIENT RELEVANT IMPLANT DATA REVIEWED: Not Applicable PATIENT PRESENTS WITH AN IMPLANTABLE OR ATTACHED INDUCTOR TESTER: No RADIOLOGY DEPARTMENT: General X-ray: Exam(s) Completed: Chest X-Ray PERIPHERAL IV DATA: Not applicable SIGNED BY: SELVIN Winkler) July 14, 2024 9:14 [facility]09-05-2024 NoteHNO ID: [id number] Author: BREONNA JERONIMO APRN.TOY MAKER Service: ? Author Type: Nurse Practitioner Type: Progress Notes Filed: 07/14/2024 09:55 Note Text: CC: Patient presents with: Cough: Chest congestion, SOB, Wheeze, sinus pressure and pain, bilat ear pain, fatigue, low grade temp, nasal congestion, headache x 7days HPI: Annia Pacheco is a 54 year old female who presents to the office with complaint of chest congestion, head congestion, cough, nonproductive, and wheezing for 7 days. Symptoms are staying the same. Associated symptoms includes fever, wheezing, and dyspnea. Denies nausea, vomiting , and diarrhea. Treatments tried include nothing so far. with no relief of symptoms. Sick contacts: unknown. History of asthma, frequent episodes of bronchitis, chronic bronchitis, bronchiectasis or COPD: No Smoker: No Seasonal/environmental allergies: No The ROS is otherwise negative. The patient's pmh, medications, allergies, and past visits are reviewed. PHYSICAL EXAM: BP 137/91 Pulse 66 Temp 36.8 ?C (98.2 ?F) Resp 20 Wt 77 kg (169 lb 12.1 oz) SpO2 95% BMI 32.47 kg/m? General appearance: alert, cooperative, pleasant, in no acute distress Head: Normocephalic Eyes: EOM's intact, conjunctiva pink and moist, no icterus, sclera white, non-injected Ears: Right ear: External ear/canal- Normal, TM - clear with good landmarks. Left ear: External ear/canal- Normal, TM - clear with good landmarks Oropharynx:moist without lesions, No erythema, exudates or tonsillar hypertrophy. Heart: Negative. RRR without obvious murmur, gallop, or rubs. No ectopy. Lungs: clear to auscultation, without rales or wheeze, good air exchange PAST MEDICAL HISTORY No date: Endometriosis, site unspecified Comment: Endometriosis/resolved 1988: Papanicolaou smear of cervix with low grade squamous intraepithelial lesion (LGSIL) Comment: Colpo- cervicitis and metaplasia only and paps since [place] No date: PMH - PAST MEDICAL HISTORY OF Comment: PID No date: PMH - PAST MEDICAL HISTORY OF Comment: anxiety disorder No date: Symptomatic menopausal or female climacteric states PAST SURGICAL HISTORY No date: APPENDECTOMY No date: DELIVERY ONLY Comment: , low cervical X2 1988; 1989: COLPOSCOPY CERVIX UPPER/ADJACENT VAGINA Comment: Colposcopy and Bx showed cervcictis only No date: LAPS ABD PRTMANDOMENTUM DX W/WO SPEC BR/WA SPX Comment: Laparoscopy/LYSIS OF ADHESIONS 08/2005: TOTAL ABDOMINAL HYSTERECT W/WO RMVL TUBE OVARY Comment: Hysterectomy, RAYMOND/bso ALLERGIES Patient has no known allergies. MEDICATIONS semaglutide, weight loss, (WEGOVY) 0.5 mg/0.5 mL pen injector Inject 0.5 mg subcutaneously one time a week. escitalopram oxalate (LEXAPRO) 20 mg tablet Take 20 mg by mouth once daily. hydrOXYzine HCl (ATARAX) 25 mg tablet metoprolol tartrate 75 mg tab Take 75 mg by mouth two times a day. estradiol (VIVELLE-DOT) 0.1 mg/24 hr Apply 1 Patch as directed twice a week. ONE PER SKIN TWICE A WEEK MULTIVITAMIN TAB Take one(1) tablet daily. benzonatate (TESSALON PERLES) 100 mg capsule Take 1 capsule by mouth three times daily as needed. (Patient not taking: Reported on 07/14/2024) paroxetine 20 mg tablet Take 20 mg by mouth once daily. (Patient not taking: Reported on 07/14/2024) calcium carbonate(CALTRATE 600 600 MG (1,500 MG) TAB) Take one(1) tablet twice daily. (Patient not taking: Reported on 07/14/2024) FAMILY HISTORY Problem Relation Age of Onset Cancer Mother SKIN Stroke Father Coronary Artery Disease Father Diabetes Father Diabetes Paternal Grandmother Diabetes Maternal Grandfather SKIN CANCER Heart Paternal Grandfather STROKE Breast Cancer Paternal Aunt Cancer Paternal Aunt Uterine Cancer Social History Tobacco Use Smoking status: Never Smokeless tobacco: Never Substance Use Topics Alcohol use: No Drug use: No ASSESSMENT/PLAN: 1. Acute cough - ICD9: 786.2, ICD10: R05.1 (primary diagnosis) - XR CHEST 2V FRONTAL/LAT * * * * Physician Interpretation * * * * EXAMINATION: CHEST RADIOGRAPH (2 VIEW FRONTAL AND LATERAL) CLINICAL HISTORY: Acute cough MQ: XC2_6 EXAM DATE/TIME: 07/14/2024 9:19 AM COMPARISON: No relevant prior studies available. RESULT: Lines, tubes, and devices: None. Lungs and pleura: No consolidation. No lung mass. No pleural effusion. No pneumothorax. Cardiomediastinal silhouette: Normal cardiomediastinal silhouette. Bones and soft tissues: Unremarkable. IMPRESSION IMPRESSION: No acute radiographic abnormality. Wood Carving Machine Operator: WILLOW Transcribe Date/Time: Jul 14 2024 9:21A Dictated by : JAMES BURNETT MD 2. Rhinosinusitis - ICD9: 473.9, ICD10: J32.9 - DOXYCYCLINE HYCLATE 100 MG TABLET Prescription instructions reviewed with patient as applicable. Potential red flag symptoms discussed with the patient. Reviewed appropriate action plan to take if red flag symptoms occur. Patient agreeable to treatm (more content not included)...[facility]09-05-2024 History of Present illness Narrative* Breonna Jeronimo APRN.[facility] - 07/14/2024 9:05 AM EDT CC: Patient presents with: Cough: Chest congestion, SOB, Wheeze, sinus pressure and pain, bilat ear pain, fatigue, low grade temp, nasal congestion, headache x 7days HPI: Annia Pacheco is a 54 year old female who presents to the office with complaint of chest congestion, head congestion, cough, nonproductive, and wheezing for 7 days. Symptoms are staying the same. Associated symptoms includes fever, wheezing, and dyspnea. Denies nausea, vomiting , and diarrhea. Treatments tried include nothing so far. with no relief of symptoms. Sick contacts: unknown. History of asthma, frequent episodes of bronchitis, chronic bronchitis, bronchiectasis or COPD: No Smoker: No Seasonal/environmental allergies: No The ROS is otherwise negative. The patient's pmh, medications, allergies, and past visits are reviewed. PHYSICAL EXAM: BP 137/91 Pulse 66 Temp 36.8 C (98.2 F) Resp 20 Wt 77 kg (169 lb 12.1 oz) SpO2 95% BMI 32.47 kg/m General appearance: alert, cooperative, pleasant, in no acute distress Head: Normocephalic Eyes: EOM's intact, conjunctiva pink and moist, no icterus, sclera white, non-injected Ears: Right ear: External ear/canal- Normal, TM - clear with good landmarks. Left ear: External ear/canal- Normal, TM - clear with good landmarks Oropharynx:moist without lesions, No erythema, exudates or tonsillar hypertrophy. Heart: Negative. RRR without obvious murmur, gallop, or rubs. No ectopy. Lungs: clear to auscultation, without rales or wheeze, good air exchange PAST MEDICAL HISTORY No date: Endometriosis, site unspecified Comment: Endometriosis/resolved 1988: Papanicolaou smear of cervix with low grade squamous intraepithelial lesion (LGSIL) Comment: Colpo- cervicitis and metaplasia only and paps since [place] No date: PMH - PAST MEDICAL HISTORY OF Comment: PID No date: PMH - PAST MEDICAL HISTORY OF Comment: anxiety disorder No date: Symptomatic menopausal or female climacteric states PAST SURGICAL HISTORY No date: APPENDECTOMY No date: DELIVERY ONLY Comment: , low cervical X2 1988; 1989: COLPOSCOPY CERVIX UPPER/ADJACENT VAGINA Comment: Colposcopy and Bx showed cervcictis only No date: LAPS ABD PRTM&OMENTUM DX W/WO SPEC BR/WA SPX Comment: Laparoscopy/LYSIS OF ADHESIONS 08/2005: TOTAL ABDOMINAL HYSTERECT W/WO RMVL TUBE OVARY Comment: Hysterectomy, RAYMOND/bso ALLERGIES Patient has no known allergies. MEDICATIONS semaglutide, weight loss, (WEGOVY) 0.5 mg/0.5 mL pen injector Inject 0.5 mg subcutaneously one timea week. escitalopram oxalate (LEXAPRO) 20 mg tablet Take 20 mg by mouth once daily. hydrOXYzine HCl (ATARAX) 25 mg tablet metoprolol tartrate 75 mg tab Take 75 mg by mouth two times a day. estradiol (VIVELLE-DOT) 0.1 mg/24 hr Apply 1 Patch as directed twice a week. ONE PER SKIN TWICE A WEEK MULTIVITAMIN TAB Take one(1) tablet daily. benzonatate (TESSALON PERLES) 100 mg capsule Take 1 capsule by mouth three times daily as needed. (Patient not taking: Reported on 07/14/2024) paroxetine 20 mg tablet Take 20 mg by mouth once daily. (Patient not taking: Reported on 07/14/2024) calcium carbonate(CALTRATE 600 600 MG (1,500 MG) TAB) Take one(1) tablet twice daily. (Patient not taking: Reported on 07/14/2024) FAMILY HISTORY Problem Relation Age of Onset Cancer Mother SKIN Stroke Father Coronary Artery Disease Father Diabetes Father Diabetes Paternal Grandmother Diabetes Maternal Grandfather SKIN CANCER Heart Paternal Grandfather STROKE Breast Cancer Paternal Aunt Cancer Paternal Aunt Uterine Cancer Social History Tobacco Use Smoking status: Never Smokeless tobacco: Never Substance Use Topics Alcohol use: No Drug use: No ASSESSMENT/PLAN: 1. Acute cough - ICD9: 786.2, ICD10: R05.1 (primary diagnosis) - XR CHEST 2V FRONTAL/LAT * * * * Physician Interpretation * * * * EXAMINATION: CHEST RADIOGRAPH (2 VIEW FRONTAL & LATERAL) CLINICAL HISTORY: Acute cough MQ: XC2_6 EXAM DATE/TIME: 07/14/2024 9:19 AM COMPARISON: No relevant prior studies available. RESULT: Lines, tubes, and devices: None. Lungs and pleura: No consolidation. No lung mass. No pleural effusion. No pneumothorax. Cardiomediastinal silhouette: Normal cardiomediastinal silhouette. Bones and soft tissues: Unremarkable. IMPRESSION IMPRESSION: No acute radiographic abnormality. Wood Carving Machine Operator: WILLOW Transcribe Date/Time: Jul 14 2024 9:21A Dictated by : JAMES BURNETT MD 2. Rhinosinusitis - ICD9: 473.9, ICD10: J32.9 - DOXYCYCLINE HYCLATE 100 MG TABLET Prescription instructions reviewed with patient as applicable. Potential red flag symptoms discussed with the patient. Reviewed appropriate action plan to take if red flag symptoms occur. Patient agreeable to treatment plan. Breonna Jeronimo APRN.TOY MAKER documented [facility] History of Present illness Narrative* Ministerio Vasques MD - 02/19/2023 2:52 PM EDT Patient presents with: Pain, Throat: Pt reported [...] CAPSULE Ministerio Vasques MD documented in [facility]03[facility] History of Present illness Narrative* PAYTON Lombardo - 01/09/2023 9:18 AM EST This note was created using KissMyAdsriter. Subjective Annia Pacheco is a 52 year old female. HPI 52-year-old female presents for sinus congestion, headache, cough, sore throat. Patient states that her symptoms started about 3 days ago. She had a sore throat and postnasal drainage. She statessore throat is now improved, but she has [...] kg (180 lb 3.2 oz) SpO2 97% BMI34.47 kg/m Physical Exam Vitals and nursing note [...] ER evaluation. PAYTON Lombardo documented in [facility]12[facility] History of Present illness Narrative* Queenie Alejandra APRN.TOY MAKER - 10/28/2022 1:51 PM EST This note was created using KissMyAdsriter. Subjective Annia Pacheco is a 52 year old female. 52 year old female With PMH HTN presents for illness. Think I have strep Acute onset Thursday night +ear congestion +sore throat Mild cough Denies SOB or dyspnea. Denies abdominal pain Denies N/V/D Denies skin rash or lesions. Daughter recently tested positive for strep. The history is provided by the patient. No language teacher was used. Sore Throat This is a [...] throat. Negative for congestion, dental problem, drooling, eardischarge, hoarse voice, postnasal drip, sinus pressure, sinus [...] - STREP A MOLECULAR (POC) Queenie Alejandra APRN.TOY MAKER documented in this encounterMer[facility]06-28-2010 History of Past illness Narrative* Problem Noted Date Resolved Date Breast screening, unspecified 05/06/2010 documented as of this encounter (statuses as of 10/28/2022) [facility]06-28-[facility] History of Past illness Narrative* Problem Noted Date Resolved Date Breast screening, unspecified 05/06/2010 documented as of this encounter (statuses as of 01/09/2023) [facility]06-28-[facility] History of Past illness Narrative* Problem Noted Date Resolved Date Breast screening, unspecified 05/06/2010 documented as of this encounter (statuses as of 02/20/2023) [facility] noteNo assessment information availableWSum[facility] Work Phone: evaluation note* Diagnosis Strep pharyngitis- Primary Streptococcal sore throat documented in this encounter [facility] note* Diagnosis Onset Date Resolution Status Encounter for routine gynecological examination noneactive [facility] Work Phone: evaluation note* Diagnosis Acute otitis media, right- Primary Unspecified otitis media URI, acute Acute upper respiratory infections of unspecified site documented in this encounter [facility] note* Diagnosis Streptococcal pharyngitis- Primary Streptococcal sore throat Sore throat Acute pharyngitis Cough, unspecified type documented in this encounter [facility] note* Diagnosis Acute cough- Primary Rhinosinusitis Unspecified sinusitis (chronic) Acute cough documented in this encounter [facility] note* Diagnosis Acute cough documented in this encounter [facility] for referral (narrative)No reason for referral information availableWSumma [facility] Work Phone: Chief Complaint and Reason for Visit Chief Complaint EORDER Chief Complaint Annual (SFDC DEVELOPER) EORDER Reason for Visit Encounter for routin e gynecological examination Chief Complaint Annual (SFDC DEVELOPER) EORDER SCREENING Reason for Visit Encounter for routin e gynecological examination Chief Complaint Annual (SFDC DEVELOPER) EORDER EORDER Reason for Visit Encounter for routin e gynecological examination Chief Complaint Admit Date Annual (SFDC DEVELOPER) October 18, 2024 7:56am SCREENING December 23, 2024 8:12am Reason for Visit Admit Date Climacteric October 18, 2024 7:56am Encounter for routine gynecological exam ination October 18, 2024 7:56am Advance Directives Advance Directive Response Recorded Date/ Time Living Will No October 12 4:59pm Power of Header Boss No October 12, 2020 4:59pm Advance Directive Response Recorded Date/ Time Living Will No October 12 3:59pm Power of Header Boss No October 12, 2020 3:59pm Advance Directive Response Recorded Date/ Time Living Will No October 12 4:59pm Do you have a Healthcare Power of Header Boss? No October 12, 2020 4:59pm Summary Purpose Family History No Family History Records Found Additional Source Comments Goals (unrecognized section and content) Goals may be documented in a n alternate sectionGoals may be documented in an alternate sectionGoals may be documented in an alternate sectionGoals may be documented in an alternate sectionGoals may be documented in an alternate sectionGoals may be documented in an alternate section Source Comments (unrecognize d section and content) In the event this informatio n is protected by the Federal Confidentiality of Alcohol and Drug Abuse Patient Records regulations: The Federal rules restrict any use of the information to criminally investigate or prosecute any alcohol or drug abuse patient.[facility] Hospital[facility] the event this information is protected by the Federal Confidentiality of Alcohol and Drug Abuse Patient Records regulations: The Federal rules restrict any use of the information to criminally investigate or prosecute any alcohol or drug abuse patient.[facility] HospitalIn the event this information is protected by the Federal Confidentiality of Alcohol and Drug Abuse Patient Records regulations: The Federal rules restrict any use of the information to criminally investigate or prosecute any alcohol or drug abuse patient.[facility] HospitalIn the event this information is protected by the Federal Confidentiality of Alcohol and Drug Abuse Patient Records regulations: The Federal rules restrict any use of the information to criminally investigate or prosecute any alcohol or drug abuse patient.[facility] HospitalIn the event this information is protected by the Federal Confidentiality of Alcohol and Drug Abuse Patient Records regulations: The Federal rules restrict any use of the information to criminally investigate or prosecute any alcohol or drug abuse patient.[facility] Reason for Visit (unrecogniz ed section and content) Reason Comments Sore Throat ST , cough and ears hurt x 3 days-exposed to strep Reason Comments Head Congestion ST, cough x2 days Reason Comments Pain, Throat Pt reported throat p ain, swelling, ear pain, x2 days. Reason Comments Cough Chest congestion, SO B, Wheeze, sinus pressure and pain, bilat ear pain, fatigue, low grade temp, nasal congestion, headache x 7days Care Teams (unrecognized sec tion and content) Medical Record Consultant Relationship Specialty Start Date End Date Joselito Ashraf MD [address] [place] [id number] PCP - General 06/24/04 Team Status: Active Member Role Status Dates Dr. Joselito Ashraf MD Family Provider Active Jessica Hill , DO Primary Care Provider Active Team Status: Inactive Member Role Status Dates Jessica Hill , DO Primary Care Provider, Referring Provider Active Dr. Marivel Chavez , DO Attending Provider Activ e Team Status: Inactive Member Role Status Dates Jessica Hill , DO Primary Care Provi yocasta, Attending Provider, Referring Provider Active Team Status: Inactive Member Role Status Dates Jessica Sr Liz , DO Primary Care Provider Active Dr. Marivel Chavez DO Attending Provider, Refe rring Provider Active Medical Record Consultant Relationship Specialty Start Date End Date Jessica Hill DO [address] [facility] [address] [place] [address] PCP - General Family Medicine 01/09/23 Medical Record Consultant Relationship Specialty Start Date End Date Jessica Hill DO [address] [facility] [address] [place] [address] PCP - General Family Medicine 01/09/23 Medical Record Consultant Relationship Specialty Start Date End Date Jessica Hill DO [address] [facility] [address] [place] [address] PCP - General Family Medicine 01/09/23 Medical Record Consultant Relationship Specialty Start Date End Date Jessica Hill DO [address] [facility] [address] [place] [address] PCP - General Family Medicine 01/09/23 Team Status: Active Member Role Status Fariba Davis MD Primary Care Provider Active Team Status: Inactive Member Role Status Fariba Davis MD Primary Care Provider Active St art: October 18, 2024 End: October 18, 2024 Nguyen Davis MD Referring Provider Active Start : October 18, 2024 End: October 18, 2024 Fabi Marin NP [employer]-C Attending Provider Active Start: October 18, 2024 End: October 18, 2024 Team Status: Inactive Member Role Status Fariba Davis MD Primary Care Provider Active St art: December 23, 2024 End: December 23, 2024 Fabi Marin NP [employer]-C Attending Provider Active Start: December 23, 2024 End: December 23, 2024 Fabi Marin NP [employer]-C Referring Provider Active Start: December 23, 2024 End: December 23, 2024 Team Status: Inactive Member Role Status Fariba Davis MD Primary Care Provider Active St art: January 19, 2025 End: January 19, 2025 Nguyen Davis MD Attending Provider Active Start : January 19, 2025 End: January 19, 2025 Nguyen Davis MD Referring Provider Active Start : January 19, 2025 End: January 19, 2025 INFORMATION SOURCE (unrecogn ized section and content) DATE CREATED AUTHOR 07/15/[address] [facility] DATE CREATED AUTHOR AUTHOR'S ORGANIZ ATION 01/31/2025 [facility] FOR RECORDS PERTAINING TO PATIENTS WHO ARE [...] BE BASED ON THE PRIMARY CLINICAL RECORDS. [employer] provides no warranty or guarantee of the accuracy or completeness of information in this document.
[2025-07-04 12:59] LABS: AST(SGOT) 17 U/L (<=31); Alanine Aminotransfer ALT/SGPT 12 U/L (<=34); Albumin, Serum 4.4 g/dL (3.5-5.0); Alkaline Phosphatase 65 U/L (35-104); Anion Gap 13 (5-15); BUN 13 mg/dL (4-19); BUN/Creat Ratio 16.5 RATIO (10-20); Calcium,Total 9.2 mg/dL (7.6-11.0); Carbon Dioxide 23.2 mmol/L (21.0-32.0); Chloride 106 mmol/L (98-108); Cholesterol 197 mg/dL (<=200); Globulin 2.8 g/dL (2.2-4.2); Glucose 81 mg/dL (70-99); Low Density Lipoprotein Calc. 97 mg/dL; Potassium 4.0 mmol/L (3.3-5.1); Triglycerides 313 mg/dL; Very Low Density Lipoprotein 63 mg/dL (5-40); cholesterol:hdl ratio screen 5.24
== END | disposition home or self-care (01) ==
LOC: MFPLAB 09:43
PROVIDERS: PCP Family Medicine; Referring Provider Family Medicine; Visit Provider Family Medicine
DX: I10 Essential (primary) hypertension (principal); E11.9 Type 2 diabetes mellitus without complications; E03.9 Hypothyroidism, unspecified
CPT/HCPCS: 36415; 80053; 80061; 82043; 82570; 83036; 84443; 85027